=== PATIENT | female | born 1990 | race Caucasian/White ===

== ENCOUNTER 2017-03-01 18:29 | Emergency (ER) | payer BC, MEDICAID ==
[2017-03-01 18:39] VITALS: BP 122/73
--- NOTE | 2017-03-01 19:06 | EDM.PDOC ---
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 The pain is intermittent and lasts about 10-15 minutes at a time. She is approximately 14 weeks . 2 para 1. She had round ligament pain with her first and says this is different. She called the OB floor and they reportedly spoke to Dr. Buitrago who wanted her to come in for an ultrasound tomorrow. She was concerned and decided to come in tonight rather than waiting until tomorrow. She denies vaginal bleeding, spotting, or loss of fluid. No dysuria, frequency or urgency. No fever or chills. She was recently treated for an asymptomatic yeast infection. lower abdominal Pain Score (Numeric/FACES): 3 - Related Data Allergies Allergy/AdvReac Type Severity Reaction Status Date / Time caffeine Allergy Excitabilit Verified 03/01/17 18:39 y CHOCOLATE Allergy Intermediate Hives Uncoded 03/01/17 18:39 Home Meds: Home Meds Doxylamine/Pyridoxine HCl [Diclegis Dr 10-10 mg Tablet] 1 tab PO BEDTIME PRN [History] Multivitamin [One Daily] 1 each PO DAILY 03/01/17 [History] buPROPion HCl [Wellbutrin SR] 150 mg PO DAILY 03/01/17 [History] Past Medical History - Past Health History Medical/Surgical History: Denies Medical/Surgical History Social & Family History - Family History Family Medical History: Noncontributory - Tobacco Use Smoking Status *Q: Never Smoker Second Hand Smoke Exposure: No - Caffeine Use Caffeine Use: Reports: None - Alcohol Use Days Per Week of Alcohol Use: 0 - Recreational Drug Use Recreational Drug Use: No ED ROS GENERAL - Review of Systems Review Of Systems: See Below Constitutional: Reports: No Symptoms. Denies: Fever, Chills GI/Abdominal: Reports: No Symptoms. Denies: Nausea, Vomiting : Reports: Other (pelvic cramping ). Denies: Dysuria, Flank Pain, Frequency, Urgency ED EXAM - Physical Exam Exam: See Below Exam Limited By: No Limitations General Appearance: Alert, WD/WN, No Apparent Distress Respiratory/Chest: No Respiratory Distress, Lungs Clear Cardiovascular: Regular Rate, Rhythm GI/Abdominal: Normal Bowel Sounds, Soft, Non-Tender (Female) Exam: Other (no tenderness with abdominal palpation of the pelvic region. speculum exam deferred as patient has no vaginal bleeding or loss of fluid ) Course - Vital Signs Last Recorded V/S: Last Vital Signs Temp 98.1 F 03/01/17 18:34 Pulse 92 03/01/17 18:34 Resp 18 03/01/17 18:34 BP 122/73 03/01/17 18:34 Pulse Ox 100 03/01/17 18:34 - Orders/Labs/Meds Orders: Active Orders 24 hr Category Date Time Status OB 1st Tri Sgl 1st Gest [US] Stat Exams 03/01/17 19:39 Taken - Re-Assessments/Exams Free Text/Narrative Re-Assessment/Exam: Ultrasound read by [facility], impression: 1. findings consistent with single live intrauterine gestation, with an estimated gestational age of 12 weeks 3 days. Normal cardiac activity. Ovaries are unremarkable. No subchorionic hemorrhage. Visualized placenta appears normal. Patient notified of findings. Educated no return precautions. Instructed to f/u with Dr. Buitrago this week. Departure - Departure Time of Disposition: 21:49 Disposition: Home, Self-Care 01 Condition: Good Clinical Impression: Pelvic cramping - Discharge Information Referrals: Kervin Buitrago MD [Primary Care Provider] - Forms: ED Department Discharge Additional Instructions: Tylenol 650mg every 4-6 hours as needed for pain Follow-up with Dr. Buitrago or Lili Martinez in 2-3 days Return to ER if symptoms worsen or you develop any vaginal bleeding or spotting - My Orders Last 24 Hours: My Active Orders 03/01/17 19:39 OB 1st Tri Sgl 1st Gest [US] Stat - Assessment/Plan Last 24 Hours: My Active Orders 03/01/17 19:39 OB 1st Tri Sgl 1st Gest [US] Stat
--- NOTE | 2017-03-02 14:38 | US ---
Limited obstetrical ultrasound: Multiple real-time images were obtained transabdominally. Comparison: Previous study of 02/18/17. Dates: LMP: LMP given as 11/23/16, MARTHA 08/30/17, gestational age 14 weeks 0 days Current ultrasound: MARTHA 08/31/17, gestational age 13 weeks 6 days Earliest ultrasound (02/18/17): MARTHA 08/30/17, gestational age 14 weeks 0 days Single intrauterine fetus is seen. Amniotic fluid volume is normal. No findings of placenta previa or abruption. Measurements: BPD: 2.39 cm - 14 weeks 1 day Head circumference: 9.53 cm - 14 weeks 3 days Abdominal circumference: 7.24 cm - 13 weeks 6 days Femur length: 1.09 cm - 13 weeks 2 days Estimated weight: 79 g (0 lbs. 3 oz.), estimated weight at the 70th percentile for age by current ultrasound Heart rate: 165 bpm Maternal ovaries are unremarkable Impression: 1. Single intrauterine fetus. Dates as noted above. 2. No complicating process identified on current ultrasound exam. Diagnostic code #1 I agree with preliminary report issued by [facility] ([facility] preliminary report dictated on 03/01/17, 10:14 PM Central Time)
== END 2017-03-01 22:10 | disposition home or self-care (01) ==
LOC: JD.ED 18:29
DX: O99.89 Other specified diseases and conditions complicating pregnancy, childbirth and the puerperium (principal); R10.2 Pelvic and perineal pain; Z91.018 Allergy to other foods; Z3A.14 14 weeks gestation of pregnancy
CPT/HCPCS: 76801; 76801-26; 99282; 99284-25

== ENCOUNTER 2017-08-25 04:58 | Inpatient (IN) | payer BC, MEDICAID ==
--- NOTE | 2017-08-24 11:44 | PCM.LDHP ---
L&D History of Present Illness - General Date of Service: 08/24/17 Admit Problem/Dx: Admission Diagnosis/Problem Admission Diagnosis/Problem Source of Information: Patient History Limitations: Reports: No Limitations - History of Present Illness Introduction:: 27 Y/O MARTHA 08/28/2017 EGA 39w4d on 08/25/2017 DOS. Plan repeat CS 2016. GBS Negative. A positive, antibody screen negative. H/H on 02/11/17 13.5/ 39.1 plt [id number]. Rubella immune, RPR NR, Urine culture mixed quan. HBsAg neg, HIV neg, GC/CT neg. On 06/10/17 H/H 12.0/36.3 Plt [id number]. OBGS 141 and 3hr OGTT 95, 159, 152, 122 instructed to avoid seeets, sugar, fired and fatty foods. HAD MODERATE BLEEDING AFTER FIRST CS. Improves with: Reports: None Worsens with: Reports: None Associated Symptoms: Reports: N - Related Data Allergies/Adverse Reactions: Allergies Allergy/AdvReac Type Severity Reaction Status Date / Time caffeine Allergy Excitabilit Verified 06/27/17 18:27 y CHOCOLATE Allergy Intermediate Hives Uncoded 06/27/17 18:27 Home Medications: Home Meds Doxylamine/Pyridoxine HCl [Diclegis Dr 10-10 mg Tablet] 1 tab PO BEDTIME PRN [History] Multivitamin [One Daily] 1 each PO DAILY 03/01/17 [History] buPROPion HCl [Wellbutrin SR] 150 mg PO DAILY 03/01/17 [History] Past Medical History - Past Health History Medical/Surgical History: Denies Medical/Surgical History : 2 Para: 1 (1001) LMP (Approximate): Social & Family History - Family History Family Medical History: Noncontributory - Tobacco Use Smoking Status *Q: Never Smoker Second Hand Smoke Exposure: No - Caffeine Use Caffeine Use: Reports: None - Alcohol Use Days Per Week of Alcohol Use: 0 - Recreational Drug Use Recreational Drug Use: No H&P Review of Systems - Review of Systems: Review Of Systems: See Below General: Reports: No Symptoms HEENT: Reports: No Symptoms Pulmonary: Reports: No Symptoms Cardiovascular: Reports: No Symptoms Gastrointestinal: Reports: No Symptoms Genitourinary: Reports: No Symptoms Musculoskeletal: Reports: No Symptoms Skin: Reports: No Symptoms Psychiatric: Reports: No Symptoms Neurological: Reports: No Symptoms Hematologic/Lymphatic: Reports: No Symptoms Immunologic: Reports: No Symptoms L&D Exam - Exam Exam: See Below - Vital Signs Weight: 190 lb - OB Specific Fundal Height In cm: 39 Movement: Active Heart Tones: Present Heart Tones per Min: 156 (08/19/2017@preop) Presentation: Vertex - Reyes Score Reyes Score Cervix Position: Posterior Reyes Score Consistency: Soft Reyes Score Effacement: 0-30% Reyes Score Dilation: Closed Reyes Score 's Station: -3 Reyes Score Total: 2 - Exam General: Alert, Oriented HEENT: PERRLA, Conjunctiva Clear, EACs Clear, EOMI, Hearing Intact, Mucosa Moist & Blanche, Nares Patent, Normal Nasal Septum, Posterior Pharynx Clear, TMs Clear Neck: Supple, Trachea Midline Lungs: Clear to Auscultation, Normal Respiratory Effort Cardiovascular: Regular Rate, Regular Rhythm GI/Abdominal Exam: Normal Bowel Sounds, Soft, Non-Tender, No Organomegaly, No Distention, No Abnormal Bruit, No Mass, Pelvis Stable Rectal Exam: Normal Exam, Normal Rectal Tone Genitourinary: Normal external exam, Normal bimanual exam, Normal speculum exam Back Exam: Normal Inspection, Full Range of Motion Extremities: Normal Inspection, Normal Range of Motion, Non-Tender, No Pedal Edema, Normal Capillary Refill Skin: Warm, Dry, Intact Neurological: Cranial Nerves Intact, Reflexes Equal Bilateral Psychiatric: Alert, Normal Affect, Normal Mood - Problem List (1) 39 weeks gestation of SNOMED Code(s): 80804922 ICD Code: Z3A.39 - 39 WEEKS GESTATION OF Status: Acute (2) History of delivery, antepartum SNOMED Code(s): 125057824 ICD Code: O34.219 - MATERNAL CARE FOR UNSP TYPE SCAR FROM PREVIOUS DEL Status: Acute Problem List Initiated/Reviewed/Updated: No Assessment/Plan Comment:: Plan repeat CS
[2017-08-25] MEDS: Lactated Ringers 1,000 ML IV SCH ×2 (05:45→06:32)
[2017-08-25] MEDS ORDERED: Citric Acid/Sodium Citrate Solution 30 ML Cup PO ONE (06:45)
[2017-08-25] MEDS ORDERED: Metoclopramide 10 MG/2 ML SDV IVPUSH ONE (06:45)
[2017-08-25] MEDS ORDERED: Bupivacaine 0.5% 30 ML SDV ONE (06:55)
[2017-08-25] MEDS ORDERED: ceFAZolin 2 GM in Premix Bag 1 BAG IV ONE (07:00)
[2017-08-25] MEDS ORDERED: Ondansetron 4 MG/2 ML SDV ONE (07:14)
[2017-08-25] MEDS ORDERED: Oxytocin 10 Units/1 ML SDV ONE (07:14)
[2017-08-25] MEDS ORDERED: Ketorolac 30 MG/ML SDV ONE (07:14)
--- NOTE | 2017-08-25 07:17 | PCM.PREANE ---
Preanesthetic Assessment - Anesthesia/Transfusion/Family Hx Anesthesia History: Prior Anesthesia Without Reaction Family History of Anesthesia Reaction: No Transfusion History: No Prior Transfusion(s) - Review of Systems General: No Symptoms Pulmonary: No Symptoms Cardiovascular: No Symptoms Gastrointestinal: Other (heartburn with ) Neurological: No Symptoms Other: Reports: None - Physical Assessment NPO Status Date: 08/24/17 NPO Status Time: 23:30 Pulse: 96 O2 Sat by Pulse Oximetry: 98 Respiratory Rate: 18 Blood Pressure: 116/69 Temperature: 37.0 C Vital Signs: Last Vital Signs Temp 37.0 C 08/25/17 05:17 Pulse 96 08/25/17 05:17 Resp 18 08/25/17 05:17 BP 116/69 08/25/17 05:17 Pulse Ox 98 08/25/17 05:17 Height: 1.63 m Weight: 104.553 kg ASA Class: 2 Mental Status: Alert & Oriented x3 Airway Class: Mallampati = 2 Dentition: Reports: Normal Dentition Thyro-Mental Finger Breadths: 3 Mouth Opening Finger Breadths: 3 ROM/Head Extension: Full Lungs: Clear to Auscultation, Normal Respiratory Effort Cardiovascular: Regular Rate, Regular Rhythm - Allergies Allergies/Adverse Reactions: Allergies Allergy/AdvReac Type Severity Reaction Status Date / Time caffeine Allergy Excitabilit Verified 08/25/17 00:54 y CHOCOLATE Allergy Intermediate Hives Uncoded 06/27/17 18:27 - Blood Blood Available: No Product(s) Available: None - Anesthesia Plan Pre-Op Medication Ordered: None - Acknowledgements Anesthesia Type Planned: Spinal Pt an Appropriate Candidate for the Planned Anesthesia: Yes Alternatives and Risks of Anesthesia Discussed w Pt/Guardian: Yes Pt/Guardian Understands and Agrees with Anesthesia Plan: Yes PreAnesthesia Questionnaire - Past Health History Medical/Surgical History: Denies Medical/Surgical History RN RADIOLOGY History: Reports: , Other (See Below) Other OB/BYN History: Csection 2014 Psychiatric History: Reports: Anxiety, Depression - Past Surgical History HEENT Surgical History: Reports: Oral Surgery Other HEENT Surgeries/Procedures: teeth extraction 2001 - SUBSTANCE USE Smoking Status *Q: Never Smoker Second Hand Smoke Exposure: No Days Per Week of Alcohol Use: 0 Recreational Drug Use History: No - HOME MEDS Home Medications: Home Meds Vit W-Ca,Fe,FA(<1 mg) [ Vitamins] 1 tab PO DAILY 08/25/17 [ History] Ranitidine [Zantac] 150 mg PO DAILY PRN 08/25/17 [History] - CURRENT (IN HOUSE) MEDS Current Meds: Current Medications Cefazolin Sodium/Dextrose 2 gm (/ Premix) 50 mls @ 100 mls/hr IV ONETIME ONE Stop: 08/25/17 07:29 Lactated Ringer's (Ringers, Lactated) 1,000 mls @ 125 mls/hr IV ASDIRECTED [facility] Last Admin: 08/25/17 06:32 Dose: 125 mls/hr Oxytocin 20 unit/ Lactated (Ringer's) 1,002 mls @ 999 mls/hr IV ASDIRECTED [facility] Discontinued Medications Bupivacaine HCl (Marcaine 0.5%) Confirm Administered Dose 30 ml .ROUTE .STK-MED ONE Stop: 08/25/17 06:56 Citric Acid/Sodium Citrate (Bicitra Solution) 30 ml PO ONETIME ONE Stop: 08/25/17 06:46 Last Admin: 08/25/17 06:51 Dose: 30 ml Ketorolac Tromethamine (Toradol) Confirm Administered Dose 30 mg .ROUTE .STK- MED ONE Stop: 08/25/17 07:15 Metoclopramide HCl (Reglan) 10 mg IVPUSH ONETIME ONE Stop: 08/25/17 06:46 Last Admin: 08/25/17 06:51 Dose: 10 mg Ondansetron HCl (Zofran) Confirm Administered Dose 4 mg .ROUTE .STK-MED ONE Stop: 08/25/17 07:15 Oxytocin (Pitocin) Confirm Administered Dose 20 unit .ROUTE .STK-MED ONE Stop: 08/25/17 07:15
[2017-08-25] MEDS ORDERED: ePHEDrine/Normal Saline 25 MG/5 ML Syringe ONE (07:59)
[2017-08-25] MEDS ORDERED: Phenylephrine/Normal Saline 100 MCG/ML 10 ML Syringe ONE (07:59)
[2017-08-25] MEDS ORDERED: Midazolam 1 MG/ML 2 ML SDV ONE (08:13)
[2017-08-25] MEDS ORDERED: fentaNYL 100 MCG/2 ML SDV ONE (08:13)
[2017-08-25] MEDS ORDERED: Metoclopramide 10 MG/2 ML SDV IVPUSH PRN (08:35)
[2017-08-25] MEDS ORDERED: ePHEDrine 50 MG/ML SDV IVPUSH PRN ×2 (08:35→09:31)
[2017-08-25] MEDS ORDERED: Meperidine PF 50 MG/ML Syringe IVPUSH PRN (08:35)
[2017-08-25] MEDS ORDERED: fentaNYL 100 MCG/2 ML SDV IVPUSH PRN (08:35)
[2017-08-25] MEDS ORDERED: diphenhydrAMINE 50 MG/ML SDV IVPUSH PRN ×2 (08:35→09:31)
[2017-08-25] MEDS ORDERED: Lactated Ringers 1,000 ML ONE (08:37)
--- NOTE | 2017-08-25 08:37 | PCM.POSTAN ---
POST ANESTHESIA ASSESSMENT - MENTAL STATUS Mental Status: Alert, Oriented - VITAL SIGNS Pulse Rate: 79 SaO2: 96 Resp Rate: 16 Blood Pressure: 110/56 Temperature: 36.7 C - RESPIRATORY Respiratory Status: Respiratory Rate WNL, Airway Patent, O2 Saturation Stable, Supplemental Oxygen - CARDIOVASCULAR CV Status: Pulse Rate WNL, Blood Pressure Stable - GASTROINTESTINAL GI Status: No Symptoms - PAIN Pain Score: 0 - POST OP HYDRATION Hydration Status: Adequate & Stable
--- NOTE | 2017-08-25 08:38 | PCM.OPNOTE ---
- General Post-Op/Procedure Note Date of Surgery/Procedure: 08/25/17 Operative Procedure(s): Low Segment transverse repeat Pre Op Diagnosis: Previous , 39 weeks plus gestation. Post-Op Diagnosis: Same dense adhesions of the omentum to the anterior fundal serosal surface of the uterus Anesthesia Technique: Spinal Primary Surgeon: Kervin Buitrago Secondary Surgeon: Alexys Copeland Anesthesia Provider: Deborah Iyer Reason Firefighter Was Necessary: Retraction, assist in surgery, decrease comorbidity and co-mortality Role of Firefighter: Retraction, assist in surgery, decrease comorbidity and co-mortality Fluid Replacement, Intraop: 2,500 Output, Urine Amount: 75 EBL in mLs: 1,000 Drain/Tube Comments:: Montez Complications: None Condition: Good Free Text/Narrative:: Patient transported to operating room #1 and placed under spinal anesthesia in the supine position with wedge under the right hip and right flank. SCDs in place and functioning prior surgery. Ancef 2 g given intravenously prior surgery. Timeout performed confirming name, date of , procedure as repeat section. Adequate level of anesthesia was confirmed after preparing and draping the patient in sterile fashion Montez catheter was placed to gravity drainage as well. was brought to the operating room. Pfannenstiel incision was made and care was sharp section to into the anterior fascia. No cavity was entered without difficulty. Bladder flap created pushed caudad and a low segment transverse performed. Amnionic fluid clear upon entry into the amnionic cavity. Male liveborn delivered at [address] Gurrola plumber pipe fitting in attendance and cared for the . Weight 8 lbs. 7 oz. 8/9. Cord blood was collected from three-vessel cord placenta removed manually. Endometrial cavity inspected and cervical patency assured. Sponge needle pack asthma sharp count correct times one the uterine incision closed in 2 layers. First layer was 0 Monocryl running locking suture. Second layer horizontal modified Lembert imbricating suture with 0 Monocryl. 2 figure- of-eight sutures placed at the midline of the incision for hemostasis. There were dense adhesions of the omentum to the anterior serosal fundal surface and these were lysed with blunt and sharp section prior to closure of the incision. Both tubes and ovaries were normal clot screen from the gutters and cul-de-sac. Uterus replaced into the abdominal cavity. Reinspection of the operative site showed no bleeding. Sponge needle pack asthma sharp count correct 2. The abdominal cavity was closed with #1 PDS for the anterior fascia. Irrigation carried out and septated tissue. The skin was closed subcuticular stitch of 3-0 Monocryl Sukh needle. Dermabond Preneo applied. Clots were cleaned from the vagina. Patient transported postanesthesia care unit in satisfactory condition no blood transfusions required.
[2017-08-25] MEDS ORDERED: Naloxone 0.4 MG/ML SDV IVPUSH PRN (09:31)
[2017-08-25] MEDS ORDERED: Ondansetron 4 MG/2 ML SDV IV PRN (09:31)
[2017-08-25] MEDS ORDERED: Docusate Sodium 100 MG Cap PO PRN (09:31)
[2017-08-25] MEDS ORDERED: Dextrose 5%-Lactated Ringers 1,000 ML IV SCH (09:31)
[2017-08-25] MEDS ORDERED: Acetaminophen 325 MG Tab PO PRN (09:31)
[2017-08-25] MEDS ORDERED: Sodium Chloride 0.9% 10 ML Syringe FLUSH PRN (09:31)
[2017-08-25] MEDS ORDERED: Lanolin 100% Cream 7 GM Tube TOP PRN (09:31)
[2017-08-25] MEDS: Acetaminophen/oxyCODONE 325-5 MG Tab PO PRN (09:45)
[2017-08-25] MEDS ORDERED: Lactated Ringers 500 ML IV ONE (12:03)
[2017-08-25] MEDS ORDERED: Furosemide 20 MG/2 ML VIAL IVPUSH ONE (12:08)
--- NOTE | 2017-08-25 12:49 | PCM.SN ---
- Free Text/Narrative Note: DOS Afebrile, awake, alert, oriented. No heavy vaginal bleeding. No leg cramping. Urine output last half hour about 100 ml after Lasiz and bolus of IV fluids. About to eat lunch.
[2017-08-25] MEDS: Simethicone 80 MG Tab.Chew PO SCH ×4 (13:30→20:15)
[2017-08-25] MEDS ORDERED: Ranitidine 15 MG/ML Syrup 10 ML UD Cup PO ONE (14:17)
[2017-08-25] MEDS: Ketorolac 30 MG/ML SDV IVPUSH SCH ×2 (14:31→20:16)
--- NOTE | 2017-08-25 15:09 | PCM.CONS ---
<Werner Riddle - Last Filed: 08/25/17 16:21> H&P History of Present Illness - General Date of Service: 08/25/17 Admit Problem/Dx: Admission Diagnosis/Problem Admission Diagnosis/Problem Source of Information: Patient, Old Records, Provider, RN, RN Notes Reviewed History Limitations: Reports: No Limitations - History of Present Illness Initial Comments - Free Text/Narative: Ivy Thompson is a 27 yo female patient of Dr. Buitrago who underwent section today. She is . There were no complications with her surgery. Hospital medicine was consult that today because after surgery the patient began having chest pain and shortness of breath. She rates it at a 4 out of 10. She reports it did go up into her neck and down her left arm. Pain is described as substernal radiating to her left side. She reports mild shortness of breath as well. She has a history of GERD. Dr. Buitrago reportedly gave her Zantac, which she takes normally, with no relief. She does report this pain is different than her normal GERD symptoms. Pain has been slowly improving. She denies any history of cardiac or pulmonary problems. No family history of cardiac or pulmonary problems at young age. She does appear somewhat anxious, however in no acute distress. 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: , Other (See Below) Other OB/BYN History: Csection 2014 Psychiatric History: Reports: Anxiety, Depression - Past Surgical History HEENT Surgical History: Reports: Oral Surgery Other HEENT Surgeries/Procedures: teeth extraction 2001 Social & Family History - Family History Family Medical History: Noncontributory - Tobacco Use Smoking Status *Q: Never Smoker Second Hand Smoke Exposure: No - Caffeine Use Caffeine Use: Reports: None - Alcohol Use Days Per Week of Alcohol Use: 0 - Recreational Drug Use Recreational Drug Use: No H&P Review of Systems - Review of Systems: Review Of Systems: See Below General: Denies: Fever, Chills, Malaise, Weakness, Fatigue, Diaphoresis HEENT: Denies: Ear Pain, Eye Pain, Headaches, Hearing Changes, Post Nasal Drip, Vertigo, Visual Changes Pulmonary: Reports: Shortness of Breath (mild "when talking" ). Denies: Wheezing, Pleuritic Chest Pain, Cough, Sputum Cardiovascular: Reports: Chest Pain (Improving; 11/21 substernal ). Denies: Palpitations, Dyspnea on Exertion, Edema, Syncope, Blood Pressure Problem Gastrointestinal: Reports: No Symptoms. Denies: Abdominal Pain, Constipation, Diarrhea, Nausea, Vomiting Genitourinary: Reports: No Symptoms. Denies: Dysuria, Frequency, Burning, Pain , Urgency Musculoskeletal: Reports: Neck Pain (with inital episode - absent now ), Arm Pain (with inital episode but absent now ). Denies: Shoulder Pain, Back Pain, Hand Pain, Leg Pain, Foot Pain, Joint Pain, Muscle Pain Skin: Reports: No Symptoms Psychiatric: Reports: No Symptoms Neurological: Reports: No Symptoms Hematologic/Lymphatic: Reports: No Symptoms Immunologic: Reports: No Symptoms Exam - Exam Exam: See Below - Vital Signs Vital Signs: Last Vital Signs Temp 97.9 F 08/25/17 09:27 Pulse 94 08/25/17 14:10 Resp 16 08/25/17 15:00 BP 109/69 08/25/17 14:10 Pulse Ox 96 08/25/17 15:00 Weight: 104.553 kg - Exam Quality Assessment: Urinary Catheter, DVT Prophylaxis General: Alert, Oriented, Cooperative. No: Mild Distress HEENT: Conjunctiva Clear, EACs Clear, EOMI, Hearing Intact, Mucosa Moist & [place] , Nares Patent, Normal Nasal Septum, Posterior Pharynx Clear, PERRLA Neck: Supple, Trachea Midline. No: JVD, Thyromegaly Lungs: Clear to Auscultation, Normal Respiratory Effort Cardiovascular: Regular Rate, Regular Rhythm GI/Abdominal Exam: Normal Bowel Sounds, Soft, No Organomegaly, No Distention, No Abnormal Bruit, No Mass, Pelvis Stable, Tender ( section incision) (Female) Exam: Deferred Rectal (Female) Exam: Deferred Back Exam: Normal Inspection, Full Range of Motion. No: CVA Tenderness (L), CVA Tenderness (R) Extremities: Normal Inspection, Normal Range of Motion, Non-Tender, No Pedal Edema, Normal Capillary Refill Peripheral Pulses: 3+: Radial (L), Radial (R), Posterior Tibial (L), Posterior Tibial (R), Dorsalis Pedis (L), Dorsalis Pedis (R) Skin: Warm, Dry, Intact Neurological: Cranial Nerves Intact (Grossly) Neuro Extensive - Mental Status: Alert, Oriented x3, Normal Mood/Affect, Normal Cognition, Memory Intact Neuro Extensive - Motor, Sensory, Reflexes: CN II-XII Intact (Grossly) Psychiatric: Alert, Normal Affect, Normal Mood - Patient Data Lab Results Last 24 hrs: Laboratory Results - last 24 hr 08/25/17 08/25/17 Range/Units 07:05 07:05 WBC 12.67 H (3.98-10.04) K/mm3 RBC 4.23 (3.98-5.22) M/mm3 Hgb 12.2 (11.2-15.7) gm/L Hct 37.2 (34.1-44.9) % MCV 87.9 (79.4-94.8) fl MCH 28.8 (25.6-32.2) pg MCHC 32.8 (32.2-35.5) g/dl RDW Std Deviation 49.9 H (36.4-46.3) fL Plt Count 267 (182-369) K/mm3 MPV 10.0 (9.4-12.3) fl Neut % (Auto) 62.4 (34.0-71.1) % Lymph % (Auto) 25.2 (19.3-51.7) % Page % (Auto) 9.9 (4.7-12.5) % Eos % (Auto) 1.7 (0.7-5.8) Baso % (Auto) 0.2 (0.1-1.2) % Neut # (Auto) 7.92 H (1.56-6.13) K/mm3 Lymph # (Auto) 3.19 (1.18-3.74) K/mm3 Page # (Auto) 1.26 H (0.24-0.36) K/mm3 Eos # (Auto) 0.21 (0.04-0.36) K/mm3 Baso # (Auto) 0.02 (0.01-0.08) K/mm3 Blood Type A POSITIVE Gel Antibody Screen Negative Result Diagrams: 08/25/17 15:15 08/25/17 15:15 Consult PN Assessment/Plan POD#: 0 Procedures: Procedures ASSAY OF FIBRONECTIN (05/26/17) ASSAY OF GONADOTROPIN (FSH) (06/23/16) ASSAY OF GONADOTROPIN (LH) (06/23/16) ASSAY THYROID STIM HORMONE (06/23/16) BLOOD TYPING SEROLOGIC ABO (02/11/17) BLOOD TYPING SEROLOGIC RH(D) (02/11/17) C-REACTIVE PROTEIN (03/07/16) CHORIONIC GONADOTROPIN ASSAY (06/23/16) CHORIONIC GONADOTROPIN TEST (01/05/17) CHYLMD TRACH DNA AMP PROBE (02/11/17) COMPLETE CBC AUTOMATED (06/23/16) COMPLETE CBC W/AUTO DIFF WBC (06/10/17) COMPREHEN METABOLIC PANEL (06/23/16) EMERGENCY DEPT VISIT (03/01/17) EVAL AMNIOTIC FLUID PROTEIN (07/28/17) NON-STRESS TEST (06/27/17) GLUCOSE TEST (06/10/17) GLUCOSE TOLERANCE TEST (GTT) (06/17/17) HEMOGLOBIN (10/11/14) HEPATITIS B SURFACE AG IA (02/11/17) HIV-1/HIV-2 1 RESULT ANTBDY (06/22/14) N.GONORRHOEAE DNA AMP PROB (02/11/17) OB US < 14 WKS SINGLE FETUS (03/01/17) OB US >/= 14 WKS SNGL FETUS (04/17/17) OB US FOLLOW-UP PER FETUS (04/20/17) RBC ANTIBODY SCREEN (02/11/17) ROUTINE VENIPUNCTURE (06/17/17) RUBELLA ANTIBODY (02/11/17) SMEAR WET MOUNT SALINE/INK (08/12/17) STREP B DNA AMP PROBE (05/26/17) SYPHILIS TEST NON-TREP QUAL (02/11/17) TRANSVAGINAL US NON-OB (03/13/15) TRANSVAGINAL US OBSTETRIC (02/18/17) TRICHOMONAS ASSAY W/OPTIC (08/12/17) URINALYSIS AUTO W/O SCOPE (08/19/17) URINALYSIS AUTO W/SCOPE (08/07/17) URINE BACTERIA CULTURE (06/10/14) URINE CULTURE/COLONY COUNT (08/07/17) (1) S/P section SNOMED Code(s): 172780325 Code(s): Z98.891 - HISTORY OF UTERINE SCAR FROM PREVIOUS SURGERY Priority: High Current Visit: Yes (2) Chest pain SNOMED Code(s): 88350997 Code(s): R07.9 - CHEST PAIN, UNSPECIFIED Priority: High Current Visit: Yes QualifierTitle: Chest pain type: unspecified Qualified Code(s): R07.9 - Chest pain, unspecified (3) Shortness of breath SNOMED Code(s): 370372265 Code(s): R06.02 - SHORTNESS OF BREATH Priority: High Current Visit: Yes (4) GERD (gastroesophageal reflux disease) SNOMED Code(s): 110140667 Code(s): K21.9 - GASTRO-ESOPHAGEAL REFLUX DISEASE WITHOUT ESOPHAGITIS Priority: Low Current Visit: Yes QualifierTitle: Esophagitis presence: esophagitis presence not specified Qualified Code(s): K21.9 - Gastro-esophageal reflux disease without esophagitis (5) Hypokalemia SNOMED Code(s): 72895957 Code(s): E87.6 - HYPOKALEMIA Priority: High Current Visit: Yes (6) Hypomagnesemia SNOMED Code(s): 832074082 Code(s): E83.42 - HYPOMAGNESEMIA Priority: High Current Visit: Yes Problem List Initiated/Reviewed/Updated: Yes My Orders Last 24 Hours: My Active Orders 08/25/17 14:45 EKG 12 Lead [EKG Documentation Completion] [RC] STAT 08/25/17 14:46 CKMB [CHEM] Stat D Dimer [D-DIMER QUANTITATIVE] [COAG] Stat TROPONIN I [CHEM] Stat Plan: I/P Acute: S/P section -Preformed earlier today -Dr. Buitrago primary -Management per primary team Chest pain -Substernal and left side of chest radiating to left arm and neck -4/10 at worst -10 now -Hx/o GERD -Does not feel like prior GERD episodes -Does not appear in acute distress -Reportedly improving -No family or personal hx/o chest or pulmonary disease -12-lead EKG - Sinus rhythm at 83. Repeat ordered for AM. -Troponin - negative -CK-MB - negative -BMP -Hypokalemia as below -Otherwise relatively unremarkable -CBC -WBC 14.79 - likely elevated due to surgery and inflammatory response -Hgb 10.9 -Hct 33.7 -Otherwise unremarkable Shortness of breath -Began after surgery -Worse when talking -No acute distress -Not tachypneic -Vital signs stable -Not requiring any oxygen -D-dimmer 3.76 - likely elevated due to recent surgery () and -Will monitor symptoms. Clinically she appears to be doing well, thus decreasing suspicion of PE -Other labs as above Hypokalemia -Potassium 3.4 -Supplementation as ordered -Monitor Hypomagnesemia -Magnesium 1.4 -Supplementation -Monitor Chronic: GERD - Symptoms appear to be GERD related, Will order GI cocktail and monitor Plan: Recheck 12-lead in AM Monitor labs R/O ID, PE, aortic dissection Postoperative care per primary team. Code Status: Full code. Her PCP is Jared Velazquez PA-C, here at [facility] Thank you for allowing us to participate in the management of this patient!! Requesting Provider: Dr. Buitrago Date Consult Requested: 08/25/17 Reason for Consult: Post- section chest pain/SOB Patient History Reviewed: Yes Admission H&P Reviewed: Yes <Lauren Jaimes M - Last Filed: 08/25/17 18:26> H&P History of Present Illness - General Admit Problem/Dx: Admission Diagnosis/Problem Admission Diagnosis/Problem section Exam - Vital Signs Vital Signs: Last Vital Signs Temp 36.6 C 08/25/17 09:27 Pulse 94 08/25/17 14:10 Resp 16 08/25/17 17:00 BP 109/69 08/25/17 14:10 Pulse Ox 98 08/25/17 17:00 - Patient Data Lab Results Last 24 hrs: Laboratory Results - last 24 hr 08/25/17 08/25/17 08/25/17 Range/Units 07:05 07:05 15:15 WBC 12.67 H (3.98-10.04) K/mm3 RBC 4.23 (3.98-5.22) M/mm3 Hgb 12.2 (11.2-15.7) gm/L Hct 37.2 (34.1-44.9) % MCV 87.9 (79.4-94.8) fl MCH 28.8 (25.6-32.2) pg MCHC 32.8 (32.2-35.5) g/dl RDW Std Deviation 49.9 H (36.4-46.3) fL Plt Count 267 (182-369) K/mm3 MPV 10.0 (9.4-12.3) fl Neut % (Auto) 62.4 (34.0-71.1) % Lymph % (Auto) 25.2 (19.3-51.7) % Page % (Auto) 9.9 (4.7-12.5) % Eos % (Auto) 1.7 (0.7-5.8) Baso % (Auto) 0.2 (0.1-1.2) % Neut # (Auto) 7.92 H (1.56-6.13) K/mm3 Lymph # (Auto) 3.19 (1.18-3.74) K/mm3 Page # (Auto) 1.26 H (0.24-0.36) K/mm3 Eos # (Auto) 0.21 (0.04-0.36) K/mm3 Baso # (Auto) 0.02 (0.01-0.08) K/mm3 D-Dimer, Quantitative 3.76 H (0.19-0.59) mg/L Sodium (136-145) mEq/L Potassium (3.5-5.1) mEq/L Chloride (98-107) mEq/L Carbon Dioxide (21-32) mEq/L Anion Gap (5-15) BUN (7-18) mg/dL Creatinine (0.55-1.02) mg/dL Est Cr Clr Drug Dosing mL/min Estimated GFR (MDRD) (>60) mL/min BUN/Creatinine Ratio (14-18) Glucose (74-106) mg/dL Calcium (8.5-10.1) mg/dL Magnesium (1.8-2.4) mg/dl CK-MB (CK-2) (0-3.6) ng/ml Troponin I (0.00-0.056) ng/mL Blood Type A POSITIVE Gel Antibody Screen Negative 08/25/17 08/25/17 08/25/17 Range/Units 15:15 15:15 15:15 WBC 14.79 H (3.98-10.04) K/mm3 RBC 3.81 L (3.98-5.22) M/mm3 Hgb 10.9 L (11.2-15.7) gm/L Hct 33.7 L (34.1-44.9) % MCV 88.5 (79.4-94.8) fl MCH 28.6 (25.6-32.2) pg MCHC 32.3 (32.2-35.5) g/dl RDW Std Deviation 50.3 H (36.4-46.3) fL Plt Count 228 (182-369) K/mm3 MPV 9.8 (9.4-12.3) fl Neut % (Auto) 76.7 H (34.0-71.1) % Lymph % (Auto) 14.5 L (19.3-51.7) % Page % (Auto) 8.0 (4.7-12.5) % Eos % (Auto) 0.3 L (0.7-5.8) Baso % (Auto) 0.1 (0.1-1.2) % Neut # (Auto) 11.34 H (1.56-6.13) K/mm3 Lymph # (Auto) 2.14 (1.18-3.74) K/mm3 Page # (Auto) 1.18 H (0.24-0.36) K/mm3 Eos # (Auto) 0.05 (0.04-0.36) K/mm3 Baso # (Auto) 0.02 (0.01-0.08) K/mm3 D-Dimer, Quantitative (0.19-0.59) mg/L Sodium 139 (136-145) mEq/L Potassium 3.4 L (3.5-5.1) mEq/L Chloride 109 H (98-107) mEq/L Carbon Dioxide 25 (21-32) mEq/L Anion Gap 8.4 (5-15) BUN 6 L (7-18) mg/dL Creatinine 0.4 L (0.55-1.02) mg/dL Est Cr Clr Drug Dosing 180.81 mL/min Estimated GFR (MDRD) > 60 (>60) mL/min BUN/Creatinine Ratio 15.0 (14-18) Glucose 91 (74-106) mg/dL Calcium 8.2 L (8.5-10.1) mg/dL Magnesium 1.4 L (1.8-2.4) mg/dl CK-MB (CK-2) < 0.5 (0-3.6) ng/ml Troponin I < 0.017 (0.00-0.056) ng/mL Blood Type Gel Antibody Screen Result Diagrams: 08/25/17 15:15 08/25/17 15:15 Consult PN Assessment/Plan Procedures: Procedures ASSAY OF FIBRONECTIN (05/26/17) ASSAY OF GONADOTROPIN (FSH) (06/23/16) ASSAY OF GONADOTROPIN (LH) (06/23/16) ASSAY THYROID STIM HORMONE (06/23/16) BLOOD TYPING SEROLOGIC ABO (02/11/17) BLOOD TYPING SEROLOGIC RH(D) (02/11/17) C-REACTIVE PROTEIN (03/07/16) CHORIONIC GONADOTROPIN ASSAY (06/23/16) CHORIONIC GONADOTROPIN TEST (01/05/17) CHYLMD TRACH DNA AMP PROBE (02/11/17) COMPLETE CBC AUTOMATED (06/23/16) COMPLETE CBC W/AUTO DIFF WBC (06/10/17) COMPREHEN METABOLIC PANEL (06/23/16) EMERGENCY DEPT VISIT (03/01/17) EVAL AMNIOTIC FLUID PROTEIN (07/28/17) NON-STRESS TEST (06/27/17) GLUCOSE TEST (06/10/17) GLUCOSE TOLERANCE TEST (GTT) (06/17/17) HEMOGLOBIN (10/11/14) HEPATITIS B SURFACE AG IA (02/11/17) HIV-1/HIV-2 1 RESULT ANTBDY (06/22/14) N.GONORRHOEAE DNA AMP PROB (02/11/17) OB US < 14 WKS SINGLE FETUS (03/01/17) OB US >/= 14 WKS SNGL FETUS (04/17/17) OB US FOLLOW-UP PER FETUS (04/20/17) RBC ANTIBODY SCREEN (02/11/17) ROUTINE VENIPUNCTURE (06/17/17) RUBELLA ANTIBODY (02/11/17) SMEAR WET M[place] SALINE/INK (08/12/17) STREP B DNA AMP PROBE (05/26/17) SYPHILIS TEST NON-TREP QUAL (02/11/17) TRANSVAGINAL US NON-OB (03/13/15) TRANSVAGINAL US OBSTETRIC (02/18/17) TRICHOMONAS ASSAY W/OPTIC (08/12/17) URINALYSIS AUTO W/O SCOPE (08/19/17) URINALYSIS AUTO W/SCOPE (08/07/17) URINE BACTERIA CULTURE (06/10/14) URINE CULTURE/COLONY COUNT (08/07/17) Plan: Doubt coronary dissection as well, TN I ordered. ECG unremarkable. Patient was not able to tolerate GI cocktail.
[2017-08-25] MEDS ORDERED: Alum Hydrox/Mag Hydrox/Simeth 30 ML, Lidocaine 2% 15 ML PO ONE ×2 (16:34)
--- NOTE | 2017-08-25 16:37 | PCM.SN ---
- Free Text/Narrative Note: Had complained of "chest fullness and heaviness" patient was seen in consult by hospitalist. Feeling better now after her Zantac. Ordered additional Zantac 150 twice a day. Chest is clear. Heart exam normal. No heavy vaginal bleeding. Incision normal. No leg cramping. Patient stable
[2017-08-25] MEDS ORDERED: Lactated Ringers 1,000 ML IV SCH (17:00)
[2017-08-25] MEDS ORDERED: Potassium Chloride 20 MEQ Tab.ER PO SCH (17:00)
[2017-08-25] MEDS: Magnesium Sulfate/Water 2 GM in Premix Bag 1 BAG IV SCH ×3 (17:15→23:05)
[2017-08-25] MEDS: Famotidine 20 MG Tab PO SCH (20:16)
[2017-08-26] MEDS: Magnesium Sulfate/Water 2 GM in Premix Bag 1 BAG IV SCH (00:07)
[2017-08-26] MEDS: Acetaminophen/oxyCODONE 325-5 MG Tab PO PRN ×4 (01:52→21:21)
[2017-08-26] MEDS ORDERED: Ketorolac 30 MG/ML SDV ONE (05:11)
[2017-08-26] MEDS: Ketorolac 30 MG/ML SDV IVPUSH SCH (05:17)
[2017-08-26] MEDS: Simethicone 80 MG Tab.Chew PO SCH ×6 (05:30→21:21)
[2017-08-26] MEDS ORDERED: Magnesium Sulfate/Water 2 GM in Premix Bag 1 BAG IV SCH (06:00)
[2017-08-26] MEDS: Potassium Chloride 20 MEQ Tab.ER PO SCH ×2 (06:22→09:44)
--- NOTE | 2017-08-26 07:15 | PCM48HPAN ---
Post Anesthesia Note - EVALUATION WITHIN 48HRS OF ANESTHETIC Vital Signs in Normal Range: Yes Patient Participated in Evaluation: Yes Respiratory Function Stable: Yes Airway Patent: Yes Cardiovascular Function Stable: Yes Hydration Status Stable: Yes Pain Control Satisfactory: Yes Nausea and Vomiting Control Satisfactory: Yes Mental Status Recovered: Yes
--- NOTE | 2017-08-26 08:03 | PCM.SN ---
- Free Text/Narrative Note: postop day #1/ day #1/ Afebrile, chest clear) chest heaviness fullness has resolved) heart sounds normal. Abdomen normal uterus involuting normally. Incision normal no heavy vaginal bleeding no leg cramping. Patient is taking potassium and had magnesium sulfate last night repeat basic metabolic profile has been ordered. CBC reviewed. Probably home tomorrow. Patient looks and feels much better today. Blood pressures are "low" but patient ran "low" during as well.
[2017-08-26] MEDS ORDERED: Ibuprofen 600 MG Tab PO PRN (08:30)
[2017-08-26] MEDS ORDERED: Non-Formulary Medication 1 Each (Ranitidine 150 MG) PO PRN (08:55)
[2017-08-26] MEDS ORDERED: Sodium Chloride 0.9% 100 ML IV SCH (09:15)
[2017-08-26] MEDS ORDERED: Iopamidol 755 Mg/ML 100 ML Bottle IVPUSH ONE (09:15)
[2017-08-26] MEDS ORDERED: Sodium Chloride 0.9% 10 ML Syringe FLUSH PRN (09:15)
[2017-08-26] MEDS: Prenatal Multivitamin with Calcium/Folic Acid/Iron Tab PO SCH (09:40)
--- NOTE | 2017-08-26 10:03 | PCM.CONSN ---
- General Info Date of Service: 08/26/17 Admission Dx/Problem (Free Text): Admission Diagnosis/Problem Admission Diagnosis/Problem section Chest pain and SOB Ivy is seen this morning; reports SOB is resolved, still has "very mild" CP sensations at times. The "chewable stuff" for heartburn is helping. She is not and she feels this may also be contributing to the CP she is having. Yesterday she had CP with workup: negative trop and EKG; d.dimer was significantly elevated at >3. VS were stable on RA. She slept fairly well overnight considering she has a . Functional Status: Reports: Pain Controlled, Tolerating Diet, Ambulating, Urinating, Incentive Spirometry. Denies: New Symptoms - Review of Systems General: Denies: Fever HEENT: Reports: No Symptoms Pulmonary: Reports: No Symptoms. Denies: Shortness of Breath, Cough Cardiovascular: Reports: Chest Pain (very mild), Other (hypotensive this morning by chart review.). Denies: Palpitations, Dyspnea on Exertion, Orthopnea , Edema, Lightheadedness Gastrointestinal: Reports: Abdominal Pain (s/p ; incisional pain). Denies: Diarrhea, Nausea (resolved from yesterday), Vomiting Neurological: Reports: No Symptoms. Denies: Dizziness, Headache Psychiatric: Reports: No Symptoms - Patient Data Vitals - Most Recent: Last Vital Signs Temp 97.9 F 08/26/17 07:33 Pulse 72 08/26/17 07:33 Resp 16 08/26/17 07:33 BP 82/46 L 08/26/17 07:33 Pulse Ox 99 08/26/17 07:33 Weight - Most Recent: 230 lb 8 oz I&O - Last 24 Hours: Intake & Output 08/25/17 08/26/17 08/26/17 22:59 06:59 14:59 Intake Total 970 800 Output Total 1850 1950 Balance -880 -1150 Lab Results Last 24 Hours: Laboratory Results - last 24 hr 08/25/17 08/25/17 08/25/17 Range/Units 15:15 15:15 15:15 WBC (3.98-10.04) K/mm3 RBC (3.98-5.22) M/mm3 Hgb (11.2-15.7) gm/L Hct (34.1-44.9) % MCV (79.4-94.8) fl MCH (25.6-32.2) pg MCHC (32.2-35.5) g/dl RDW Std Deviation (36.4-46.3) fL Plt Count (182-369) K/mm3 MPV (9.4-12.3) fl Neut % (Auto) (34.0-71.1) % Lymph % (Auto) (19.3-51.7) % Valley % (Auto) (4.7-12.5) % Eos % (Auto) (0.7-5.8) Baso % (Auto) (0.1-1.2) % Neut # (Auto) (1.56-6.13) K/mm3 Lymph # (Auto) (1.18-3.74) K/mm3 Valley # (Auto) (0.24-0.36) K/mm3 Eos # (Auto) (0.04-0.36) K/mm3 Baso # (Auto) (0.01-0.08) K/mm3 D-Dimer, Quantitative 3.76 H (0.19-0.59) mg/L Sodium 139 (136-145) mEq/L Potassium 3.4 L (3.5-5.1) mEq/L Chloride 109 H (98-107) mEq/L Carbon Dioxide 25 (21-32) mEq/L Anion Gap 8.4 (5-15) BUN 6 L (7-18) mg/dL Creatinine 0.4 L (0.55-1.02) mg/dL Est Cr Clr Drug Dosing 180.81 mL/min Estimated GFR (MDRD) > 60 (>60) mL/min BUN/Creatinine Ratio 15.0 (14-18) Glucose 91 (74-106) mg/dL Calcium 8.2 L (8.5-10.1) mg/dL Magnesium 1.4 L (1.8-2.4) mg/dl CK-MB (CK-2) < 0.5 (0-3.6) ng/ml Troponin I < 0.017 (0.00-0.056) ng/mL 08/25/17 08/26/17 08/26/17 Range/Units 15:15 06:35 06:35 WBC 14.79 H 10.35 H (3.98-10.04) K/mm3 RBC 3.81 L 3.68 L (3.98-5.22) M/mm3 Hgb 10.9 L 10.5 L (11.2-15.7) gm/L Hct 33.7 L 32.9 L (34.1-44.9) % MCV 88.5 89.4 (79.4-94.8) fl MCH 28.6 28.5 (25.6-32.2) pg MCHC 32.3 31.9 L (32.2-35.5) g/dl RDW Std Deviation 50.3 H 51.9 H (36.4-46.3) fL Plt Count 228 237 (182-369) K/mm3 MPV 9.8 9.7 (9.4-12.3) fl Neut % (Auto) 76.7 H 58.2 (34.0-71.1) % Lymph % (Auto) 14.5 L 29.4 (19.3-51.7) % Valley % (Auto) 8.0 10.2 (4.7-12.5) % Eos % (Auto) 0.3 L 1.7 (0.7-5.8) Baso % (Auto) 0.1 0.2 (0.1-1.2) % Neut # (Auto) 11.34 H 6.02 (1.56-6.13) K/mm3 Lymph # (Auto) 2.14 3.04 (1.18-3.74) K/mm3 Valley # (Auto) 1.18 H 1.06 H (0.24-0.36) K/mm3 Eos # (Auto) 0.05 0.18 (0.04-0.36) K/mm3 Baso # (Auto) 0.02 0.02 (0.01-0.08) K/mm3 D-Dimer, Quantitative (0.19-0.59) mg/L Sodium 138 (136-145) mEq/L Potassium 4.0 (3.5-5.1) mEq/L Chloride 106 (98-107) mEq/L Carbon Dioxide 26 (21-32) mEq/L Anion Gap 10.0 (5-15) BUN 8 (7-18) mg/dL Creatinine 0.5 L (0.55-1.02) mg/dL Est Cr Clr Drug Dosing 144.65 mL/min Estimated GFR (MDRD) > 60 (>60) mL/min BUN/Creatinine Ratio 16.0 (14-18) Glucose 91 (74-106) mg/dL Calcium 8.0 L (8.5-10.1) mg/dL Magnesium (1.8-2.4) mg/dl CK-MB (CK-2) (0-3.6) ng/ml Troponin I (0.00-0.056) ng/mL 08/26/17 Range/Units 09:10 WBC (3.98-10.04) K/mm3 RBC (3.98-5.22) M/mm3 Hgb (11.2-15.7) gm/L Hct (34.1-44.9) % MCV (79.4-94.8) fl MCH (25.6-32.2) pg MCHC (32.2-35.5) g/dl RDW Std Deviation (36.4-46.3) fL Plt Count (182-369) K/mm3 MPV (9.4-12.3) fl Neut % (Auto) (34.0-71.1) % Lymph % (Auto) (19.3-51.7) % Valley % (Auto) (4.7-12.5) % Eos % (Auto) (0.7-5.8) Baso % (Auto) (0.1-1.2) % Neut # (Auto) (1.56-6.13) K/mm3 Lymph # (Auto) (1.18-3.74) K/mm3 Valley # (Auto) (0.24-0.36) K/mm3 Eos # (Auto) (0.04-0.36) K/mm3 Baso # (Auto) (0.01-0.08) K/mm3 D-Dimer, Quantitative (0.19-0.59) mg/L Sodium (136-145) mEq/L Potassium (3.5-5.1) mEq/L Chloride (98-107) mEq/L Carbon Dioxide (21-32) mEq/L Anion Gap (5-15) BUN (7-18) mg/dL Creatinine (0.55-1.02) mg/dL Est Cr Clr Drug Dosing mL/min Estimated GFR (MDRD) (>60) mL/min BUN/Creatinine Ratio (14-18) Glucose (74-106) mg/dL Calcium (8.5-10.1) mg/dL Magnesium (1.8-2.4) mg/dl CK-MB (CK-2) (0-3.6) ng/ml Troponin I < 0.017 (0.00-0.056) ng/mL Med Orders - Current: Current Medications Acetaminophen (Tylenol) 650 mg PO Q4H PRN PRN Reason: mild pain or fever Diphenhydramine HCl (Benadryl) 25 mg IVPUSH Q6H PRN PRN Reason: Itching or Nausea Docusate Sodium (Colace) 100 mg PO Q12H PRN PRN Reason: Constipation Emollient Ointment (Lansinoh Hpa) 0 gm TOP ASDIRECTED PRN PRN Reason: Sore Nipples Ephedrine Sulfate (Ephedrine Sulfate) 5 mg IVPUSH SEECOMMENT PRN PRN Reason: Other Famotidine (Pepcid) 20 mg PO BEDTIME [facility] Last Admin: 08/25/17 20:16 Dose: 20 mg Lactated Ringer's (Ringers, Lactated) 1,000 mls @ 50 mls/hr IV ASDIRECTED [facility] Last Admin: 08/25/17 21:39 Dose: 50 mls/hr Sodium Chloride (Normal Saline) 100 mls @ 80 mls/hr IV ASDIRECTED [facility] Stop: 08/26/17 11:00 Last Admin: 08/26/17 09:29 Dose: 80 mls/hr Ibuprofen (Motrin) 600 mg PO Q6H PRN PRN Reason: mild pain or fever Naloxone HCl (Narcan) 0.1 mg IVPUSH SEECOMMENT PRN PRN Reason: Respiratory Depression Ondansetron HCl (Zofran) 4 mg IV Q8H PRN PRN Reason: Nausea/Vomiting Last Admin: 08/25/17 11:06 Dose: 4 mg Oxycodone/Acetaminophen (Percocet 325-5 Mg) 2 tab PO Q4H PRN PRN Reason: Pain (moderate 4-6) Last Admin: 08/26/17 01:52 Dose: 2 tab Prenat Multivit/[place]/Iron/Folic Ac ( Plus Iron) 1 each PO DAILY JOLIE Last Admin: 08/26/17 09:40 Dose: 1 each Simethicone (Simethicone) 80 mg PO PCBED JOLIE Last Admin: 08/26/17 09:40 Dose: 80 mg Sodium Chloride (Saline Flush) 10 ml FLUSH ASDIRECTED PRN PRN Reason: Keep Vein Open Sodium Chloride (Saline Flush) 10 ml FLUSH ONETIME PRN PRN Reason: IV FLUSH Stop: 08/26/17 11:00 Last Admin: 08/26/17 09:30 Dose: 10 ml Discontinued Medications Bupivacaine HCl (Marcaine 0.5%) Confirm Administered Dose 30 ml .ROUTE .STK-MED ONE Stop: 08/25/17 06:56 Last Admin: 08/25/17 07:53 Dose: 20 ml Citric Acid/Sodium Citrate (Bicitra Solution) 30 ml PO ONETIME ONE Stop: 08/25/17 06:46 Last Admin: 08/25/17 06:51 Dose: 30 ml Al Hydroxide/Mg Hydroxide 30 (ml/ Lidocaine HCl 15 ml) 0 ml PO ONETIME ONE Stop: 08/25/17 16:35 Last Admin: 08/25/17 17:12 Dose: 45 ml Diphenhydramine HCl (Benadryl) 25 mg IVPUSH Q6H PRN PRN Reason: itching Stop: 08/25/17 10:30 Ephedrine Sulfate (Ephedrine In Ns) Confirm Administered Dose 25 mg .ROUTE .STK- MED ONE Stop: 08/25/17 08:00 Ephedrine Sulfate (Ephedrine Sulfate) 5 mg IVPUSH ASDIRECTED PRN PRN Reason: Hypotension Stop: 08/25/17 10:30 Fentanyl (Sublimaze) Confirm Administered Dose 100 mcg .ROUTE .STK-MED ONE Stop: 08/25/17 08:14 Fentanyl (Sublimaze) 50 mcg IVPUSH Q5M PRN PRN Reason: pain Stop: 08/25/17 10:30 Furosemide (Lasix) 20 mg IVPUSH NOW ONE Stop: 08/25/17 12:09 Last Admin: 08/25/17 12:24 Dose: 20 mg Cefazolin Sodium/Dextrose 2 gm (/ Premix) 50 mls @ 100 mls/hr IV ONETIME ONE Stop: 08/25/17 07:29 Lactated Ringer's (Ringers, Lactated) 1,000 mls @ 125 mls/hr IV ASDIRECTED [facility] Last Admin: 08/25/17 06:32 Dose: 125 mls/hr Oxytocin 20 unit/ Lactated (Ringer's) 1,002 mls @ 999 mls/hr IV ASDIRECTED [facility] Lactated Ringer's (Ringers, Lactated) Confirm Administered Dose 1,000 mls @ as directed .ROUTE .STK-MED ONE Stop: 08/25/17 08:38 Dextrose/Lactated Ringer's (Dextrose 5%-Lactated Ringers) 1,000 mls @ 125 mls/ hr IV ASDIRECTED [facility] Stop: 08/25/17 17:30 Last Admin: 08/25/17 10:31 Dose: 125 mls/hr Lactated Ringer's (Ringers, Lactated) 500 mls @ 500 mls/hr IV .BOLUS ONE Stop: 08/25/17 13:02 Last Admin: 08/25/17 12:24 Dose: 500 mls/hr Magnesium Sulfate 2 gm/ Premix 50 mls @ 25 mls/hr IV Q1H [facility] Stop: 08/25/17 18:44 Last Admin: 08/26/17 00:07 Dose: Not Given Magnesium Sulfate 2 gm/ Premix 50 mls @ 25 mls/hr IV Q1H [facility] Stop: 08/26/17 07:59 Magnesium Sulfate 2 gm/ Premix 50 mls @ 25 mls/hr IV Q1H [facility] Stop: 08/25/17 23:29 Last Admin: 08/25/17 23:05 Dose: 25 mls/hr Iopamidol (Isovue-370 (76%)) 100 ml IVPUSH ONETIME ONE Stop: 08/26/17 09:16 Last Admin: 08/26/17 09:29 Dose: 60 ml Ketorolac Tromethamine (Toradol) Confirm Administered Dose 30 mg .ROUTE .STK- MED ONE Stop: 08/25/17 07:15 Ketorolac Tromethamine (Toradol) 30 mg IVPUSH Q6H [facility] Stop: 08/26/17 02:31 Last Admin: 08/26/17 05:17 Dose: 30 mg Ketorolac Tromethamine (Toradol) Confirm Administered Dose 30 mg .ROUTE .STK- MED ONE Stop: 08/26/17 05:12 Last Admin: 08/26/17 06:15 Dose: Not Given Meperidine HCl (Demerol) 12.5 mg IVPUSH ONETIME PRN PRN Reason: Shivering Stop: 08/25/17 10:30 Last Admin: 08/25/17 08:51 Dose: 12.5 mg Metoclopramide HCl (Reglan) 10 mg IVPUSH ONETIME ONE Stop: 08/25/17 06:46 Last Admin: 08/25/17 06:51 Dose: 10 mg Metoclopramide HCl (Reglan) 10 mg IVPUSH ONETIME PRN PRN Reason: Nausea/Vomiting Stop: 08/25/17 10:30 Midazolam HCl (Versed 1 Mg/Ml) Confirm Administered Dose 2 mg .ROUTE .STK-MED ONE Stop: 08/25/17 08:14 Non-Formulary Medication (Ranitidine) 150 mg PO DAILY PRN PRN Reason: Heartburn Ondansetron HCl (Zofran) Confirm Administered Dose 4 mg .ROUTE .STK-MED ONE Stop: 08/25/17 07:15 Oxytocin (Pitocin) Confirm Administered Dose 20 unit .ROUTE .STK-MED ONE Stop: 08/25/17 07:15 Phenylephrine HCl (Phenylephrine In Ns 100 Mcg/Ml) Confirm Administered Dose 1 mg .ROUTE .STK-MED ONE Stop: 08/25/17 08:00 Potassium Chloride (Klor-Con M20) 40 meq PO Q4H [facility] Stop: 08/25/17 21:01 Last Admin: 08/25/17 17:14 Dose: Not Given Potassium Chloride (Klor-Con M20) 40 meq PO Q4H [facility] Stop: 08/26/17 10:01 Last Admin: 08/26/17 09:44 Dose: 40 meq Ranitidine HCl (Zantac) 75 mg PO ONETIME ONE Stop: 08/25/17 14:18 Last Admin: 08/25/17 14:26 Dose: 5 ml - Exam Quality Assessment: DVT Prophylaxis General: Alert, Oriented, Cooperative, No Acute Distress HEENT: Pupils Equal, EOMI, Mucous Membr. Moist/[place] Neck: Supple, No JVD Lungs: Clear to Auscultation, Normal Respiratory Effort Cardiovascular: Regular Rate, Regular Rhythm. No: Murmurs GI/Abdominal Exam: Normal Bowel Sounds, Soft (Female) Exam: Deferred Extremities: Normal Inspection, No Pedal Edema, Normal Capillary Refill Peripheral Pulses: 2+: Radial (L), Radial (R), Dorsalis Pedis (L), Dorsalis Pedis (R) Neurological: No New Focal Deficit Psy/Mental Status: Alert, Normal Affect, Normal Mood Consult PN Assessment/Plan POD#: 1 Procedures: Procedures ASSAY OF FIBRONECTIN (05/26/17) ASSAY OF GONADOTROPIN (FSH) (06/23/16) ASSAY OF GONADOTROPIN (LH) (06/23/16) ASSAY THYROID STIM HORMONE (06/23/16) BLOOD TYPING SEROLOGIC ABO (02/11/17) BLOOD TYPING SEROLOGIC RH(D) (02/11/17) C-REACTIVE PROTEIN (03/07/16) CHORIONIC GONADOTROPIN ASSAY (06/23/16) CHORIONIC GONADOTROPIN TEST (01/05/17) CHYLMD TRACH DNA AMP PROBE (02/11/17) COMPLETE CBC AUTOMATED (06/23/16) COMPLETE CBC W/AUTO DIFF WBC (06/10/17) COMPREHEN METABOLIC PANEL (06/23/16) EMERGENCY DEPT VISIT (03/01/17) EVAL AMNIOTIC FLUID PROTEIN (07/28/17) NON-STRESS TEST (06/27/17) GLUCOSE TEST (06/10/17) GLUCOSE TOLERANCE TEST (GTT) (06/17/17) HEMOGLOBIN (10/11/14) HEPATITIS B SURFACE AG IA (02/11/17) HIV-1/HIV-2 1 RESULT ANTBDY (06/22/14) N.GONORRHOEAE DNA AMP PROB (02/11/17) OB US < 14 WKS SINGLE FETUS (03/01/17) OB US >/= 14 WKS SNGL FETUS (04/17/17) OB US FOLLOW-UP PER FETUS (04/20/17) RBC ANTIBODY SCREEN (02/11/17) ROUTINE VENIPUNCTURE (06/17/17) RUBELLA ANTIBODY (02/11/17) SMEAR WET [place] SALINE/INK (08/12/17) STREP B DNA AMP PROBE (05/26/17) SYPHILIS TEST NON-TREP QUAL (02/11/17) TRANSVAGINAL US NON-OB (03/13/15) TRANSVAGINAL US OBSTETRIC (02/18/17) TRICHOMONAS ASSAY W/OPTIC (08/12/17) URINALYSIS AUTO W/O SCOPE (08/19/17) URINALYSIS AUTO W/SCOPE (08/07/17) URINE BACTERIA CULTURE (06/10/14) URINE CULTURE/COLONY COUNT (08/07/17) (1) S/P section SNOMED Code(s): 294666836 Code(s): Z98.891 - HISTORY OF UTERINE SCAR FROM PREVIOUS SURGERY Priority: High Current Visit: Yes (2) Chest pain SNOMED Code(s): 00329188 Code(s): R07.9 - CHEST PAIN, UNSPECIFIED Priority: High Current Visit: Yes Qualifiers: Chest pain type: unspecified Qualified Code(s): R07.9 - Chest pain, unspecified (3) Hypokalemia SNOMED Code(s): 20088609 Code(s): E87.6 - HYPOKALEMIA Priority: High Current Visit: Yes (4) Hypomagnesemia SNOMED Code(s): 011384549 Code(s): E83.42 - HYPOMAGNESEMIA Priority: High Current Visit: Yes (5) Shortness of breath SNOMED Code(s): 075741393 Code(s): R06.02 - SHORTNESS OF BREATH Priority: High Current Visit: Yes Problem List Initiated/Reviewed/Updated: Yes My Orders Last 24 Hours: My Active Orders 08/26/17 08:54 Ang Chest [CT] Routine 08/26/17 09:00 Vit with Ca/FA/Iron [ Plus Iron] 1 each PO DAILY 08/26/17 09:58 MAGNESIUM [CHEM] Routine Plan: I/P Acute: S/P section -POD #1; postoperative care and OB care per Dr. Buitrago/Primary service Chest pain--yesterday; essentially resolved today -Substernal and left side of chest radiating to left arm and neck -Hx/o GERD; Does not feel like prior GERD episodes; however states "chewable stuff for heartburn" is helping -No family or personal hx/o chest or pulmonary disease -12-lead EKG done yesterday - Sinus rhythm at 83. Repeat ordered for AM. -Troponin - negative, repeat this morning also negative -CK-MB - negative -BMP -Hypokalemia as below --resolved -Otherwise relatively unremarkable -CBC -WBC 14.79 - likely elevated due to surgery and inflammatory response -Hgb 10.9 -Hct 33.7 -Otherwise unremarkable Shortness of breath -Began after surgery; Worse when talking; Not tachypnic; Vital signs stable on RA -D-dimmer 3.76 - likely elevated due to recent surgery () and ; CTA ordered this morning to R/O PE: high risk with and surgery, symptomatic with CP, SOB and hypotensive this morning. -CTA is negative for PE or other lung findings. Hypokalemia -- Resolved this morning -Supplementation yesterday -Monitor Hypomagnesemia--resolved this morning -Supplementation yesterday -Monitor Chronic: GERD - zantac at home, pepcid here. Rec'd zantac yesterday without resolution of CP; "chewable" is helping today. Plan: Recheck trop and 12-lead this am--negative. Monitor labs Ambulate and watch O2 sats with ambulation R/O MD, PE, coronary dissection s/p delivery Postoperative and OB care per primary team. Patient with negative cardiac and pulmonary workup. Hospitalist service will sign off at this time, please do not hesitate to contact us again for further assistance. Thank you for allowing us to assist with this patient.
--- NOTE | 2017-08-26 10:42 | CT ---
CT chest Technique: Multiple axial sections through the chest were obtained. Intravenous contrast was utilized. Findings: Pulmonary arteries are moderately well-opacified. No filling defects are seen to indicate pulmonary embolism. Mediastinum and hilar regions are unremarkable. Minimal soft tissue density within the superior mediastinum is seen compatible with residual thymic tissue. Small hiatal hernia appears to be present. Visualized upper abdominal structures are within normal limits. Lungs are clear. No pleural effusions are seen. Bone window settings were reviewed which appear within normal limits for the patient's age. Impression: 1. No findings of pulmonary embolism. Nothing acute is seen on CT study of the chest. Diagnostic code #1
[2017-08-26] MEDS: Famotidine 20 MG Tab PO SCH (21:21)
[2017-08-27] MEDS: Acetaminophen/oxyCODONE 325-5 MG Tab PO PRN ×3 (01:44→10:40)
[2017-08-27 05:02] VITALS: BP 110/65
--- NOTE | 2017-08-27 07:55 | PCM.DCSUM1 ---
Discharge Summary - Hospital Course Free Text/Narrative:: [facility] Post-Op/Procedure Note Patient Name: MEHUL POLO Date of : 88 Patient Status: Inpatient Attending Provider: Kervin Buitrago Date: 08/25/17 08:32 Initialization Date: 08/25/17 08:32 - General Post-Op/Procedure Note Date of Surgery/Procedure: 08/25/17 Operative Procedure(s): Low Segment transverse repeat Pre Op Diagnosis: Previous , 39 weeks plus gestation. Post-Op Diagnosis: Same dense adhesions of the omentum to the anterior fundal serosal surface of the uterus Anesthesia Technique: Spinal Primary Surgeon: Kervin Buitrago Secondary Surgeon: Alexys Copeland Anesthesia Provider: Deborah Iyer Reason Engineering Consultant Was Necessary: Retraction, assist in surgery, decrease comorbidity and co-mortality Role of Engineering Consultant: Retraction, assist in surgery, decrease comorbidity and co-mortality Fluid Replacement, Intraop: 2,500 Output, Urine Amount: 75 EBL in mLs: 1,000 Drain/Tube Comments:: Montez Complications: None Condition: Good Free Text/Narrative:: Patient transported to operating room #1 and placed under spinal anesthesia in the supine position with wedge under the right hip and right flank. SCDs in place and functioning prior surgery. Ancef 2 g given intravenously prior surgery. Timeout performed confirming name, date of , procedure as repeat section. Adequate level of anesthesia was confirmed after preparing and draping the patient in sterile fashion Montez catheter was placed to gravity drainage as well. was brought to the operating room. Pfannenstiel incision was made and care was sharp section to into the anterior fascia. No cavity was entered without difficulty. Bladder flap created pushed caudad and a low segment transverse performed. Amnionic fluid clear upon entry into the amnionic cavity. Male liveborn delivered at [address] Gurrola appeals rn in attendance and cared for the . Weight 8 lbs. 7 oz. 8/9. Cord blood was collected from three-vessel cord placenta removed manually. Endometrial cavity inspected and cervical patency assured. Sponge needle pack asthma sharp count correct times one the uterine incision closed in 2 layers. First layer was 0 Monocryl running locking suture. Second layer horizontal modified Lembert imbricating suture with 0 Monocryl. 2 figure- of-eight sutures placed at the midline of the incision for hemostasis. There were dense adhesions of the omentum to the anterior serosal fundal surface and these were lysed with blunt and sharp section prior to closure of the incision. Both tubes and ovaries were normal clot screen from the gutters and cul-de-sac. Uterus replaced into the abdominal cavity. Reinspection of the operative site showed no bleeding. Sponge needle pack asthma sharp count correct 2. The abdominal cavity was closed with #1 PDS for the anterior fascia. Irrigation carried out and septated tissue. The skin was closed subcuticular stitch of 3-0 Monocryl Sukh needle. Dermabond Preneo applied. Clots were cleaned from the vagina. Patient transported postanesthesia care unit in satisfactory condition no blood transfusions required. HPI Initial Comments: [facility] Post-Op/Procedure Note Patient Name: MEHUL POLO Date of : 88 Patient Status: Inpatient Attending Provider: Kervin Buitrago Date: 08/25/17 08:32 Initialization Date: 08/25/17 08:32 - General Post-Op/Procedure Note Date of Surgery/Procedure: 08/25/17 Operative Procedure(s): Low Segment transverse repeat Pre Op Diagnosis: Previous , 39 weeks plus gestation. Post-Op Diagnosis: Same dense adhesions of the omentum to the anterior fundal serosal surface of the uterus Anesthesia Technique: Spinal Primary Surgeon: Kervin Buitrago Secondary Surgeon: Alexys Copeland Anesthesia Provider: Deborah Iyer Reason Engineering Consultant Was Necessary: Retraction, assist in surgery, decrease comorbidity and co-mortality Role of Engineering Consultant: Retraction, assist in surgery, decrease comorbidity and co-mortality Fluid Replacement, Intraop: 2,500 Output, Urine Amount: 75 EBL in mLs: 1,000 Drain/Tube Comments:: Montez Complications: None Condition: Good Free Text/Narrative:: Patient transported to operating room #1 and placed under spinal anesthesia in the supine position with wedge under the right hip and right flank. SCDs in place and functioning prior surgery. Ancef 2 g given intravenously prior surgery. Timeout performed confirming name, date of , procedure as repeat section. Adequate level of anesthesia was confirmed after preparing and draping the patient in sterile fashion Montez catheter was placed to gravity drainage as well. was brought to the operating room. Pfannenstiel incision was made and care was sharp section to into the anterior fascia. No cavity was entered without difficulty. Bladder flap created pushed caudad and a low segment transverse performed. Amnionic fluid clear upon entry into the amnionic cavity. Male liveborn delivered at [address] Gurrola appeals rn in attendance and cared for the . Weight 8 lbs. 7 oz. 8/9. Cord blood was collected from three-vessel cord placenta removed manually. Endometrial cavity inspected and cervical patency assured. Sponge needle pack asthma sharp count correct times one the uterine incision closed in 2 layers. First layer was 0 Monocryl running locking suture. Second layer horizontal modified Lembert imbricating suture with 0 Monocryl. 2 figure- of-eight sutures placed at the midline of the incision for hemostasis. There were dense adhesions of the omentum to the anterior serosal fundal surface and these were lysed with blunt and sharp section prior to closure of the incision. Both tubes and ovaries were normal clot screen from the gutters and cul-de-sac. Uterus replaced into the abdominal cavity. Reinspection of the operative site showed no bleeding. Sponge needle pack asthma sharp count correct 2. The abdominal cavity was closed with #1 PDS for the anterior fascia. Irrigation carried out and septated tissue. The skin was closed subcuticular stitch of 3-0 Monocryl Sukh needle. Dermabond Preneo applied. Clots were cleaned from the vagina. Patient transported postanesthesia care unit in satisfactory condition no blood transfusions required. Brief History: [facility] . Post-Op/Procedure Note. [facility] [id number]. Date of : Patient Status: Inpatient. Attending Provider: Kervin Buitragoount Number: [id number]. Date: 08/25/17 08:32Initialization Date: 08/25/17 08:32. - General Post-Op/Procedure Note. Date of Surgery/Procedure: 08/25/17. Operative Procedure(s): Low Segment transverse repeat. Pre Op Diagnosis: Previous , 39 weeks plus gestation. Post-Op Diagnosis: Same dense adhesions of the omentum to the anterior fundal serosal surface of the uterus. Anesthesia Technique: Spinal. Primary Surgeon: Kervin Buitargo. Secondary Surgeon: Alexys Copeland. Anesthesia Provider: Deborah Iyer. Reason Engineering Consultant Was Necessary: Retraction, assist in surgery, decrease comorbidity and co-mortality. Role of Engineering Consultant: Retraction, assist in surgery , decrease comorbidity and co-mortality. Fluid Replacement, Intraop: 2,500. Output, Urine Amount: 75. EBL in mLs: 1,000. Drain/Tube Comments:: Montez. Complications: None. Condition: Good. Free Text/Narrative:: Patient transported to operating room #1 and placed under spinal anesthesia in the supine position with wedge under the right hip and right flank. SCDs in place and functioning prior surgery. Ancef 2 g given intravenously prior surgery. Timeout performed confirming name, date of , procedure as repeat section. Adequate level of anesthesia was confirmed after preparing and draping the patient in sterile fashion Montez catheter was placed to gravity drainage as well. was brought to the operating room. Pfannenstiel incision was made and care was sharp section to into the anterior fascia. No cavity was entered without difficulty. Bladder flap created pushed caudad and a low segment transverse performed. Amnionic fluid clear upon entry into the amnionic cavity. Male liveborn delivered at 0757 hrs. on Thursday08/25/17. Dr. Gurrola appeals rn in attendance and cared for the . Weight 8 lbs. 7 oz. 8/9. Cord blood was collected from three-vessel cord placenta removed manually. Endometrial cavity inspected and cervical patency assured. Sponge needle pack asthma sharp count correct times one the uterine incision closed in 2 layers. First layer was 0 Monocryl running locking suture. Second layer horizontal modified Lembert imbricating suture with 0 Monocryl. 2 figure-of- eight sutures placed at the midline of the incision for hemostasis. There were dense adhesions of the omentum to the anterior serosal fundal surface and these were lysed with blunt and sharp section prior to closure of the incision. Both tubes and ovaries were normal clot screen from the gutters and cul-de-sac. Uterus replaced into the abdominal cavity. Reinspection of the operative site showed no bleeding. Sponge needle pack asthma sharp count correct 2. The abdominal cavity was closed with #1 PDS for the anterior fascia. Irrigation carried out and septated tissue. The skin was closed subcuticular stitch of 3-0 Monocryl Sukh needle. Dermabond Preneo applied. Clots were cleaned from the vagina. Patient transported postanesthesia care unit in satisfactory condition no blood transfusions required. - Discharge Data Discharge Date: 08/27/17 Discharge Disposition: Home, Self-Care 01 Condition: Good - Discharge Diagnosis/Problem(s) (1) 39 weeks gestation of SNOMED Code(s): 45056067 ICD Code: Z3A.39 - 39 WEEKS GESTATION OF Status: Acute Current Visit: Yes (2) History of delivery, antepartum SNOMED Code(s): 422040616 ICD Code: O34.219 - MATERNAL CARE FOR UNSP TYPE SCAR FROM PREVIOUS DEL Status: Acute Current Visit: Yes - Patient Summary/Data Operative Procedure(s) Performed: Low Segment transverse repeat Consults: Consultations 08/25/17 14:37 Consult to Physician [CONS] Routine Hospital Course: Evaluated for chest pain. Seen by PA and Hospitalist and not significant problem. - Patient Instructions Diet: Regular Diet as Tolerated Driving: Do Not Drive (x2 weeks) Showering/Bathing: May Shower, No Tub Bathing/Swimming (x6 weeks) Wound/Incision Care: Keep Operative Site/Wound Site Clean and Dry Notify Provider of: Fever, Increased Pain, Swelling and Redness, Drainage, Nausea and/or Vomiting - Discharge Plan Prescriptions/Med Rec: Acetaminophen/oxyCODONE [Percocet 325-5 MG] 1 tab PO Q6H PRN #25 tablet PRN Reason: Pain (Moderate 4-6) Citalopram [Celexa] 20 mg PO DAILY #30 tablet Ibuprofen [IJD: Ibuprofen] 600 mg PO Q6H PRN #50 tablet PRN Reason: mild pain or fever Home Medications: Home Meds Vit W-Ca,Fe,FA(<1 mg) [ Vitamins] 1 tab PO DAILY 08/25/17 [ History] Ranitidine [Zantac] 150 mg PO DAILY PRN 08/25/17 [History] Acetaminophen [Tylenol] 650 mg PO Q4H PRN tablet 08/27/17 [Rx] Acetaminophen/oxyCODONE [Percocet 325-5 MG] 1 tab PO Q6H PRN #25 tablet [Rx] Citalopram [Celexa] 20 mg PO DAILY #30 tablet 08/27/17 [Rx] Docusate Sodium [Colace] 100 mg PO Q12H PRN cap 08/27/17 [Rx] Ibuprofen [IJD: Ibuprofen] 600 mg PO Q6H PRN #50 tablet 08/27/17 [Rx] Lanolin [Lansinoh HPA] 1 applic TOP ASDIRECTED PRN tube 08/27/17 [Rx] Simethicone 80 mg PO PCBED tab.chew 08/27/17 [Rx] Referrals: Kervin Buitrago MD [Physician] - - Discharge Summary/Plan Comment DC Time >30 min.: No - Patient Data Vitals - Most Recent: Last Vital Signs Temp 98.2 F 08/26/17 19:46 Pulse 72 08/27/17 04:06 Resp 16 08/26/17 19:46 BP 110/65 08/27/17 04:06 Pulse Ox 98 08/27/17 04:06 Weight - Most Recent: 230 lb 8 oz I&O - Last 24 hours: Intake & Output 08/26/17 08/27/17 08/27/17 22:59 06:59 14:59 Intake Total 480 Balance 480 Lab Results - Last 24 hrs: Laboratory Results - last 24 hr 08/26/17 08/26/17 08/26/17 Range/Units 06:35 09:10 09:10 Sodium 138 (136-145) mEq/L Potassium 4.0 (3.5-5.1) mEq/L Chloride 106 (98-107) mEq/L Carbon Dioxide 26 (21-32) mEq/L Anion Gap 10.0 (5-15) BUN 8 (7-18) mg/dL Creatinine 0.5 L (0.55-1.02) mg/dL Est Cr Clr Drug Dosing 144.65 mL/min Estimated GFR (MDRD) > 60 (>60) mL/min BUN/Creatinine Ratio 16.0 (14-18) Glucose 91 (74-106) mg/dL Calcium 8.0 L (8.5-10.1) mg/dL Magnesium 1.9 (1.8-2.4) mg/dl Troponin I < 0.017 (0.00-0.056) ng/mL Med Orders - Current: Current Medications Acetaminophen (Tylenol) 650 mg PO Q4H PRN PRN Reason: mild pain or fever Diphenhydramine HCl (Benadryl) 25 mg IVPUSH Q6H PRN PRN Reason: Itching or Nausea Docusate Sodium (Colace) 100 mg PO Q12H PRN PRN Reason: Constipation Last Admin: 08/26/17 16:01 Dose: 100 mg Emollient Ointment (Lansinoh Hpa) 0 gm TOP ASDIRECTED PRN PRN Reason: Sore Nipples Ephedrine Sulfate (Ephedrine Sulfate) 5 mg IVPUSH SEECOMMENT PRN PRN Reason: Other Famotidine (Pepcid) 20 mg PO BEDTIME [facility] Last Admin: 08/26/17 21:21 Dose: 20 mg Lactated Ringer's (Ringers, Lactated) 1,000 mls @ 50 mls/hr IV ASDIRECTED [facility] Last Admin: 08/25/17 21:39 Dose: 50 mls/hr Ibuprofen (Motrin) 600 mg PO Q6H PRN PRN Reason: mild pain or fever Last Admin: 08/26/17 14:07 Dose: 600 mg Naloxone HCl (Narcan) 0.1 mg IVPUSH SEECOMMENT PRN PRN Reason: Respiratory Depression Ondansetron HCl (Zofran) 4 mg IV Q8H PRN PRN Reason: Nausea/Vomiting Last Admin: 08/25/17 11:06 Dose: 4 mg Oxycodone/Acetaminophen (Percocet 325-5 Mg) 2 tab PO Q4H PRN PRN Reason: Pain (moderate 4-6) Last Admin: 08/27/17 06:41 Dose: 2 tab Prenat Multivit/[place]/Iron/Folic Ac ( Plus Iron) 1 each PO DAILY [facility] Last Admin: 08/26/17 09:40 Dose: 1 each Simethicone (Simethicone) 80 mg PO PCBED [facility] Last Admin: 08/26/17 21:21 Dose: 80 mg Sodium Chloride (Saline Flush) 10 ml FLUSH ASDIRECTED PRN PRN Reason: Keep Vein Open Discontinued Medications Bupivacaine HCl (Marcaine 0.5%) Confirm Administered Dose 30 ml .ROUTE .STK-MED ONE Stop: 08/25/17 06:56 Last Admin: 08/25/17 07:53 Dose: 20 ml Citric Acid/Sodium Citrate (Bicitra Solution) 30 ml PO ONETIME ONE Stop: 08/25/17 06:46 Last Admin: 08/25/17 06:51 Dose: 30 ml Al Hydroxide/Mg Hydroxide 30 (ml/ Lidocaine HCl 15 ml) 0 ml PO ONETIME ONE Stop: 08/25/17 16:35 Last Admin: 08/25/17 17:12 Dose: 45 ml Diphenhydramine HCl (Benadryl) 25 mg IVPUSH Q6H PRN PRN Reason: itching Stop: 08/25/17 10:30 Ephedrine Sulfate (Ephedrine In Ns) Confirm Administered Dose 25 mg .ROUTE .STK- MED ONE Stop: 08/25/17 08:00 Ephedrine Sulfate (Ephedrine Sulfate) 5 mg IVPUSH ASDIRECTED PRN PRN Reason: Hypotension Stop: 08/25/17 10:30 Fentanyl (Sublimaze) Confirm Administered Dose 100 mcg .ROUTE .STK-MED ONE Stop: 08/25/17 08:14 Fentanyl (Sublimaze) 50 mcg IVPUSH Q5M PRN PRN Reason: pain Stop: 08/25/17 10:30 Furosemide (Lasix) 20 mg IVPUSH NOW ONE Stop: 08/25/17 12:09 Last Admin: 08/25/17 12:24 Dose: 20 mg Cefazolin Sodium/Dextrose 2 gm (/ Premix) 50 mls @ 100 mls/hr IV ONETIME ONE Stop: 08/25/17 07:29 Lactated Ringer's (Ringers, Lactated) 1,000 mls @ 125 mls/hr IV ASDIRECTED [facility] Last Admin: 08/25/17 06:32 Dose: 125 mls/hr Oxytocin 20 unit/ Lactated (Ringer's) 1,002 mls @ 999 mls/hr IV ASDIRECTED [facility] Lactated Ringer's (Ringers, Lactated) Confirm Administered Dose 1,000 mls @ as directed .ROUTE .STK-MED ONE Stop: 08/25/17 08:38 Dextrose/Lactated Ringer's (Dextrose 5%-Lactated Ringers) 1,000 mls @ 125 mls/ hr IV ASDIRECTED [facility] Stop: 08/25/17 17:30 Last Admin: 08/25/17 10:31 Dose: 125 mls/hr Lactated Ringer's (Ringers, Lactated) 500 mls @ 500 mls/hr IV .BOLUS ONE Stop: 08/25/17 13:02 Last Admin: 08/25/17 12:24 Dose: 500 mls/hr Magnesium Sulfate 2 gm/ Premix 50 mls @ 25 mls/hr IV Q1H [facility] Stop: 08/25/17 18:44 Last Admin: 08/26/17 00:07 Dose: Not Given Magnesium Sulfate 2 gm/ Premix 50 mls @ 25 mls/hr IV Q1H [facility] Stop: 08/26/17 07:59 Magnesium Sulfate 2 gm/ Premix 50 mls @ 25 mls/hr IV Q1H [facility] Stop: 08/25/17 23:29 Last Admin: 08/25/17 23:05 Dose: 25 mls/hr Sodium Chloride (Normal Saline) 100 mls @ 80 mls/hr IV ASDIRECTED [facility] Stop: 08/26/17 11:00 Last Admin: 08/26/17 09:29 Dose: 80 mls/hr Iopamidol (Isovue-370 (76%)) 100 ml IVPUSH ONETIME ONE Stop: 08/26/17 09:16 Last Admin: 08/26/17 09:29 Dose: 60 ml Ketorolac Tromethamine (Toradol) Confirm Administered Dose 30 mg .ROUTE .STK- MED ONE Stop: 08/25/17 07:15 Ketorolac Tromethamine (Toradol) 30 mg IVPUSH Q6H [facility] Stop: 08/26/17 02:31 Last Admin: 08/26/17 05:17 Dose: 30 mg Ketorolac Tromethamine (Toradol) Confirm Administered Dose 30 mg .ROUTE .STK- MED ONE Stop: 08/26/17 05:12 Last Admin: 08/26/17 06:15 Dose: Not Given Meperidine HCl (Demerol) 12.5 mg IVPUSH ONETIME PRN PRN Reason: Shivering Stop: 08/25/17 10:30 Last Admin: 08/25/17 08:51 Dose: 12.5 mg Metoclopramide HCl (Reglan) 10 mg IVPUSH ONETIME ONE Stop: 08/25/17 06:46 Last Admin: 08/25/17 06:51 Dose: 10 mg Metoclopramide HCl (Reglan) 10 mg IVPUSH ONETIME PRN PRN Reason: Nausea/Vomiting Stop: 08/25/17 10:30 Midazolam HCl (Versed 1 Mg/Ml) Confirm Administered Dose 2 mg .ROUTE .STK-MED ONE Stop: 08/25/17 08:14 Non-Formulary Medication (Ranitidine) 150 mg PO DAILY PRN PRN Reason: Heartburn Ondansetron HCl (Zofran) Confirm Administered Dose 4 mg .ROUTE .STK-MED ONE Stop: 08/25/17 07:15 Oxytocin (Pitocin) Confirm Administered Dose 20 unit .ROUTE .STK-MED ONE Stop: 08/25/17 07:15 Phenylephrine HCl (Phenylephrine In Ns 100 Mcg/Ml) Confirm Administered Dose 1 mg .ROUTE .STK-MED ONE Stop: 08/25/17 08:00 Potassium Chloride (Klor-Con M20) 40 meq PO Q4H JOLIE Stop: 08/25/17 21:01 Last Admin: 08/25/17 17:14 Dose: Not Given Potassium Chloride (Klor-Con M20) 40 meq PO Q4H JOLIE Stop: 08/26/17 10:01 Last Admin: 08/26/17 09:44 Dose: 40 meq Ranitidine HCl (Zantac) 75 mg PO ONETIME ONE Stop: 08/25/17 14:18 Last Admin: 08/25/17 14:26 Dose: 5 ml Sodium Chloride (Saline Flush) 10 ml FLUSH ONETIME PRN PRN Reason: IV FLUSH Stop: 08/26/17 11:00 Last Admin: 08/26/17 09:30 Dose: 10 ml *Q Meaningful Use (DIS) - VTE *Q VTE Criteria *Q: - Stroke *Q Stroke Criteria *Q: - AMI *Q AMI Criteria *Q:
[2017-08-27] MEDS: Simethicone 80 MG Tab.Chew PO SCH (10:26)
[2017-08-27] MEDS: Prenatal Multivitamin with Calcium/Folic Acid/Iron Tab PO SCH (10:26)
== END 2017-08-27 11:10 | disposition home or self-care (01) | DRG 540 ==
LOC: UNDOADMIN 04:58 → JD.OB 04:58
PROVIDERS: ADMIT Obstetrics & Gynecology; ATTEND Obstetrics & Gynecology
PROC: 10D00Z1 Extraction of Products of Conception, Low, Open Approach (ICD-10-PCS; principal; 2017-08-25)
DX: O34.211 Maternal care for low transverse scar from previous cesarean delivery (principal); N85.8 Other specified noninflammatory disorders of uterus; Z3A.40 40 weeks gestation of pregnancy; Z37.0 Single live birth; O99.89 Other specified diseases and conditions complicating pregnancy, childbirth and the puerperium; R07.9 Chest pain, unspecified; R06.02 Shortness of breath; K21.9 Gastro-esophageal reflux disease without esophagitis; E87.6 Hypokalemia; E83.42 Hypomagnesemia; Z91.02 Food additives allergy status
CPT/HCPCS: 01961; 36415; 71275; 71275-26; 80048; 82553; 83735; 84484; 85025; 85379; 86850; 86900; 86901; 93005; A9270-GY; J1885; J2175; J2250; J2405; J2590; J2765; J3010; J3475; J7030; J7042; J7050; J7120; Q9967

== ENCOUNTER 2020-12-01 15:19 | Emergency (ER) | payer BC, MEDICAID ==
--- NOTE | 2020-12-01 15:54 | EDM.PDOC ---
ED HPI GENERAL MEDICAL PROBLEM - General Chief Complaint: General Stated Complaint: COLD SX AND SORE THROAT X 1 MONTH Time Seen by Provider: 12/01/20 15:30 Source of Information: Reports: Patient History Limitations: Reports: No Limitations - History of Present Illness INITIAL COMMENTS - FREE TEXT/NARRATIVE: The patient presents with a headache, sore throat and a slight cough. This all started about a month ago. She has not been able to stop it with over the counter medications. She has no fever or chills. She has no chest pain or shortness of breath. She does not smoke. She had COVID 19 back in May but she fully recovered in 6 months. Onset: Gradual Duration: Week(s): (4) Location: Reports: Head Quality: Reports: Ache Severity: Moderate Improves with: Reports: None Worsens with: Reports: None Associated Symptoms: Reports: Cough, Headaches. Denies: Chest Pain, Fever/Chills, Nausea/Vomiting, Shortness of Breath Headache Pain Score (Numeric/FACES): 3 - Related Data Allergies Allergy/AdvReac Type Severity Reaction Status Date / Time chocolate flavor Allergy Hives Verified 12/01/20 15:30 caffeine AdvReac Excitabilit Verified 12/01/20 15:30 y Home Meds: Home Meds Amoxicillin/Clavulanate K [Augmentin 875-125 MG] 1 tab PO BID #14 tablet 0 12/01/20 [Rx] Loratadine/Pseudoephedrine [Claritin-D 24 Hour Tablet] 1 each PO DAILY #20 tab.er.24h 12/01/20 [Rx] Multivitamin [Flintstones with Extra C] 1 tab PO DAILY 12/01/20 [History] Omeprazole 20 mg PO BID 12/01/20 [History] Past Medical History - Past Health History Medical/Surgical History: Denies Medical/Surgical History FISHER DIVING History: Reports: , Other (See Below) Other FISHER DIVING History: Csection 2014 Psychiatric History: Reports: Anxiety, Depression - Infectious Disease History Infectious Disease History: Reports: Novel Coronavirus - Past Surgical History HEENT Surgical History: Reports: Oral Surgery Other HEENT Surgeries/Procedures: teeth extraction 2001 Social & Family History - Family History Family Medical History: No Pertinent Family History - Tobacco Use Tobacco Use Status *Q: Never Tobacco User Second Hand Smoke Exposure: No - Caffeine Use Caffeine Use: Reports: Coffee - Recreational Drug Use Recreational Drug Use: No ED ROS GENERAL - Review of Systems Review Of Systems: See Below Constitutional: Reports: No Symptoms HEENT: Reports: Throat Pain Respiratory: Reports: No Symptoms Cardiovascular: Reports: No Symptoms Endocrine: Reports: No Symptoms GI/Abdominal: Reports: No Symptoms : Reports: No Symptoms Musculoskeletal: Reports: No Symptoms ED EXAM, GENERAL - Physical Exam Exam: See Below Exam Limited By: No Limitations General Appearance: Alert, No Apparent Distress Ears: Normal External Exam Nose: Normal Inspection Throat/Mouth: Normal Inspection, Normal Oropharynx Head: Atraumatic, Normocephalic Neck: Normal Inspection, Supple, Non-Tender Respiratory/Chest: No Respiratory Distress, Lungs Clear, Normal Breath Sounds Cardiovascular: Regular Rate, Rhythm, No Edema, No Murmur GI/Abdominal: Soft, Non-Tender, No Organomegaly, No Mass Back Exam: Normal Inspection Extremities: Normal Inspection Neurological: Alert, Oriented, No Motor/Sensory Deficits Course - Vital Signs Last Recorded V/S: Last Vital Signs Temp 98.1 F 12/01/20 15:32 Pulse 77 12/01/20 15:32 Resp 16 12/01/20 15:32 BP 143/89 H 12/01/20 15:32 Pulse Ox 98 12/01/20 15:32 - Re-Assessments/Exams Free Text/Narrative Re-Assessment/Exam: 12/01/20 15:50 I feel this is a sinus infection. I will start her on some augmentin BID for 7 days and claritin D 24 hours and have her take some flonase. Departure - Departure Time of Disposition: 15:55 Disposition: Home, Self-Care 01 Condition: Good Clinical Impression: Sinus infection Qualifiers: Sinusitis location: unspecified location Chronicity: acute Recurrence: non- recurrent Qualified Code(s): J01.90 - Acute sinusitis, unspecified - Discharge Information *PRESCRIPTION DRUG MONITORING PROGRAM REVIEWED*: No *COPY OF PRESCRIPTION DRUG MONITORING REPORT IN PATIENT LAURA: No Prescriptions: Amoxicillin/Clavulanate K [Augmentin 875-125 MG] 1 tab PO BID #14 tablet Loratadine/Pseudoephedrine [Claritin-D 24 Hour Tablet] 1 each PO DAILY #20 tab.er.24h Referrals: Jared Velazquez PA-C [Primary Care Provider] - 1 Week Additional Instructions: Take the augmentin 2 times per day for 7 days. Take the claritin D 24 hours daily. Flonase is a nasal spray that you can buy over the counter. Use that per label instructions. Follow up with Jared Velazquez within a week. Please return if you are worse. Sepsis Event Note (ED) - Evaluation Sepsis Screening Result: No Definite Risk - Focused Exam Vital Signs: Vital Signs Temp Pulse Resp BP Pulse Ox 12/01/20 15:32 98.1 F 77 16 143/89 H 98
[2020-12-01 16:06] VITALS: BP 108/64; PULSE 98
== END 2020-12-01 16:05 | disposition home or self-care (01) ==
LOC: JD.ED 15:19
DX: J01.90 Acute sinusitis, unspecified (principal); Z86.16 Personal history of COVID-19; Z91.018 Allergy to other foods
CPT/HCPCS: 99283

== ENCOUNTER 2021-02-18 19:18 | Emergency (ER) | payer OTHER, SELFPAY ==
[2021-02-18 19:29] VITALS: BP 133/77; PULSE 78
--- NOTE | 2021-02-18 20:05 | EDM.PDOCBH ---
ED HPI GENERAL MEDICAL PROBLEM - General Chief Complaint: Behavioral/Psych Stated Complaint: DEPRESSION Time Seen by Provider: 02/18/21 19:27 Source of Information: Reports: Patient History Limitations: Reports: No Limitations - History of Present Illness INITIAL COMMENTS - FREE TEXT/NARRATIVE: The patient presents with depression. She was on depression meds and was doing good and came off them in July. She was doing good until the past month. She has been crying more and not wanting to do house hold chores or take care of her kids. She is not suicidal or homicidal. She was recently diagnosed with PCOS and hypothyroidism. She said she can be fine and the next minute she is crying. She is wondering if she can get started on something. She has tried to get into a counselor but they are booked up at the places she tried. She has no fever, chills, cough, congestion runny nose, chest pain, shortness of breath, abdominal pain, nausea or vomiting. Onset: Gradual Duration: Week(s): (4) Severity: Moderate Improves with: Reports: None Worsens with: Reports: None Associated Symptoms: Reports: No Other Symptoms - Related Data Allergies Allergy/AdvReac Type Severity Reaction Status Date / Time No Known Allergies Allergy Verified 02/18/21 19:29 Home Meds: Home Meds Omeprazole 20 mg PO BID PRN 12/01/20 [History] FLUoxetine [PROzac] 10 mg PO DAILY #30 tab 02/18/21 [Rx] Levothyroxine 25 mcg PO ACBREAKFAST 02/18/21 [History] Non-Formulary Medication [NF Drug] 1 tab PO DAILY 02/18/21 [History] metFORMIN HCl [Glucophage XR] 750 mg PO DAILY 02/18/21 [History] Past Medical History - Past Health History Medical/Surgical History: Denies Medical/Surgical History 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, 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 Psychiatric History: Reports: Anxiety, Depression Endocrine/Metabolic History: Reports: Hypothyroidism, Obesity/BMI 30+ - Infectious Disease History Infectious Disease History: Reports: Novel Coronavirus - Past Surgical History HEENT Surgical History: Reports: Oral Surgery Other HEENT Surgeries/Procedures: teeth extraction 2001 Female Surgical History: Reports: Section Social & Family History - Family History Family Medical History: No Pertinent Family History - Tobacco Use Tobacco Use Status *Q: Never Tobacco User - Caffeine Use Caffeine Use: Reports: None - Recreational Drug Use Recreational Drug Use: No ED ROS GENERAL - Review of Systems Review Of Systems: See Below Constitutional: Reports: No Symptoms HEENT: Reports: No Symptoms Respiratory: Reports: No Symptoms Cardiovascular: Reports: No Symptoms Endocrine: Reports: No Symptoms GI/Abdominal: Reports: No Symptoms : Reports: No Symptoms Musculoskeletal: Reports: No Symptoms Skin: Reports: No Symptoms Neurological: Reports: No Symptoms Psychiatric: Reports: Depression ED EXAM, BEHAVIORAL HEALTH - Physical Exam Exam: See Below Exam Limited By: No Limitations General Appearance: Alert, No Apparent Distress Ears: Normal External Exam Nose: Normal Inspection Head: Atraumatic, Normocephalic Neck: Normal Inspection Respiratory/Chest: No Respiratory Distress, Lungs Clear, Normal Breath Sounds Cardiovascular: Regular Rate, Rhythm, No Edema, No Murmur GI/Abdominal: Soft, Non-Tender, No Organomegaly, No Mass Back Exam: Normal Inspection Extremities: Normal Inspection COURSE, BEHAVIORAL HEALTH COMP - Course Vital Signs: Last Vital Signs Temp 96.6 F L 02/18/21 19:25 Pulse 78 02/18/21 19:25 Resp 16 02/18/21 19:25 BP 133/77 02/18/21 19:25 Pulse Ox 96 02/18/21 19:25 Re-Assessment/Re-Exam: I will get her on some prozac to start with and follow up with Jared Velazquez. Departure - Departure Time of Disposition: 20:10 Disposition: Home, Self-Care 01 Condition: Good Clinical Impression: Depressive disorder - Discharge Information *PRESCRIPTION DRUG MONITORING PROGRAM REVIEWED*: Not Applicable *COPY OF PRESCRIPTION DRUG MONITORING REPORT IN PATIENT LAURA: Not Applicable Prescriptions: FLUoxetine [PROzac] 10 mg PO DAILY #30 tab Referrals: Jared Velazquez PA-C [Primary Care Provider] - 1 Week Additional Instructions: Take the prozac daily. Follow up with Jared Velazquez. Try to get into the counselor. The combination of the medication and counseling works well. Please return if you are worse. Sepsis Event Note (ED) - Evaluation Sepsis Screening Result: No Definite Risk - Focused Exam Vital Signs: Vital Signs Temp Pulse Resp BP Pulse Ox 02/18/21 19:25 96.6 F L 78 16 133/77 96
== END 2021-02-18 20:20 | disposition home or self-care (01) ==
LOC: JD.ED 19:18
DX: F32.9 Major depressive disorder, single episode, unspecified (principal); K21.9 Gastro-esophageal reflux disease without esophagitis; E66.9 Obesity, unspecified; Z79.899 Other long term (current) drug therapy; Z68.30 Body mass index [BMI] 30.0-30.9, adult
CPT/HCPCS: 99283

== ENCOUNTER 2021-05-04 02:21 | Emergency (ER) | payer OTHER ==
[2021-05-04 02:40] VITALS: BP 130/77; PULSE 110
[2021-05-04] MEDS ORDERED: Prochlorperazine 10 MG in Sodium Chloride 0.9% 50 ML IV ONE (03:07)
--- NOTE | 2021-05-04 03:13 | EDM.PDOC ---
ED HPI GENERAL MEDICAL PROBLEM - General Chief Complaint: Abdominal Pain Stated Complaint: CHEST PAIN/BACK PAIN/VOMITING Time Seen by Provider: 05/04/21 02:47 - History of Present Illness INITIAL COMMENTS - FREE TEXT/NARRATIVE: Patient arrived to ED by private vehicle She is accompanied by her father Onset of symptoms was about 0030 this morning Endorses sudden onset of pain in epigastric area Associated radiation of pain through to mid back Associated nausea with 3-4 episodes of subsequent vomiting Pain severity was 7/10 at worst Pain severity improved slightly after vomiting, currently 5-6/10 Denies ongoing nausea Denies fever, diarrhea, dysuria Took 2 tablets of extra-strength Tylenol about 0100, without noticeable improvement Had occurrence of similar pain in severity about 2 weeks ago Symptoms lasted for a few hours then resolved Denies other prior history of similar symptoms Epigastric Pain Score (Numeric/FACES): 7 - Related Data Allergies Allergy/AdvReac Type Severity Reaction Status Date / Time No Known Allergies Allergy Verified 05/04/21 02:40 Home Meds: Home Meds Omeprazole 20 mg PO BID PRN 12/01/20 [History] Levothyroxine 25 mcg PO ACBREAKFAST 02/18/21 [History] Non-Formulary Medication [NF Drug] 1 tab PO DAILY 02/18/21 [History] metFORMIN HCl [Glucophage XR] 750 mg PO DAILY 02/18/21 [History] Past Medical History - Past Health History Medical/Surgical History: Denies Medical/Surgical History 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: Polycystic Ovaries, 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 COORDINATOR 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: 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 2014 Psychiatric History: Reports: Anxiety, Depression Endocrine/Metabolic History: Reports: Hypothyroidism, Obesity/BMI 30+ - Infectious Disease History Infectious Disease History: Reports: Novel Coronavirus - Past Surgical History HEENT Surgical History: Reports: Oral Surgery Other HEENT Surgeries/Procedures: teeth extraction 2002 Female Surgical History: Reports: Section Social & Family History - Family History Family Medical History: No Pertinent Family History - Tobacco Use Tobacco Use Status *Q: Never Tobacco User - Caffeine Use Caffeine Use: Reports: None - Recreational Drug Use Recreational Drug Use: No ED ROS GENERAL - Review of Systems Review Of Systems: See Below Free Text/Narrative/Comment: Constitutional - no fever Eyes - no eye pain; no visual disturbance ENT - no rhinorrhea; no congestion; no epistaxis Cardiovascular - no chest pain Respiratory - no shortness of breath; no cough Gastrointestinal - abdominal pain; nausea; vomiting; no diarrhea Genitourinary - no dysuria Musculoskeletal - no neck pain; back pain; no extremity injury Neurological - no headache; no speech disturbance; no weakness ED EXAM, GENERAL - Physical Exam Exam: See Below Free Text/Narrative:: Constitutional - awake; alert; no acute distress Head - no facial swelling or weakness Eyes - extra ocular motion intact; conjunctiva normal ENT - no nasal deformity; no epistaxis; normal phonation; mucus membranes moist Neck - no swelling Respiratory - normal respiratory effort; no crackles or wheezing; no stridor Cardiovascular - regular rhythm; normal rate; S1; S2; grade 1/6 systolic murmur GI/Abdomen - normal bowel sounds; soft; mild tenderness epigastrium and right upper quadrant; no rebound; no guarding; no mass; no CVA tenderness Musculoskeletal - grossly normal strength and motion; no swelling or deformity Skin - warm; dry Neurologic - normal speech; no weakness; gait intact Psychiatric - normal mood and affect; memory and attention normal Course - Vital Signs Text/Narrative:: . Considered etiologies included: Abdominal pain, nausea, vomiting, gastritis, gastroenteritis, GERD, peptic ulcer disease, biliary colic, pancreatitis Symptoms and examination were discussed Investigations were initiated Empiric treatment was provided with IV prochlorperazine She reported improvement in nausea, no significant change in pain Additional treatment was provided with ketorolac Results were discussed, and were unremarkable Pain severity was significantly improved at re-evaluation, essentially resolved Considerations for ED imaging were discussed US evaluation of gallbladder was deferred to primary care follow-up Patient was felt to be stable for outpatient follow-up Return precautions were provided Last Recorded V/S: Last Vital Signs Temp 36.4 C 05/04/21 02:36 Pulse 110 H 05/04/21 02:36 Resp 16 05/04/21 02:36 BP 130/77 05/04/21 02:36 Pulse Ox 97 05/04/21 02:36 - Orders/Labs/Meds Labs: Laboratory Tests 05/04/21 05/04/21 Range/Units 03:03 03:03 WBC 11.85 H (3.98-10.04) K/mm3 RBC 4.76 (3.98-5.22) M/mm3 Hgb 10.8 L (11.2-15.7) gm/dl Hct 34.9 (34.1-44.9) % MCV 73.3 L (79.4-94.8) fl MCH 22.7 L (25.6-32.2) pg MCHC 30.9 L (32.2-35.5) g/dl RDW Std Deviation 48.0 H (36.4-46.3) fL Plt Count 469 H (182-369) K/mm3 MPV 9.6 (9.4-12.3) fl Neut % (Auto) 64.9 (34.0-71.1) % Lymph % (Auto) 25.7 (19.3-51.7) % Pierce % (Auto) 6.9 (4.7-12.5) % Eos % (Auto) 2.1 (0.7-5.8) Baso % (Auto) 0.3 (0.1-1.2) % Neut # (Auto) 7.68 H (1.56-6.13) K/mm3 Lymph # (Auto) 3.05 (1.18-3.74) K/mm3 Pierce # (Auto) 0.82 H (0.24-0.36) K/mm3 Eos # (Auto) 0.25 (0.04-0.36) K/mm3 Baso # (Auto) 0.04 (0.01-0.08) K/mm3 Manual Slide Review Abnormal smear Sodium 143 (136-145) mEq/L Potassium 3.9 (3.5-5.1) mEq/L Chloride 107 (98-107) mEq/L Carbon Dioxide 25 (21-32) mEq/L Anion Gap 14.9 (5-15) BUN 9 (7-18) mg/dL Creatinine 0.8 (0.55-1.02) mg/dL Est Cr Clr Drug Dosing 87.99 mL/min Estimated GFR (MDRD) > 60 (>60) mL/min BUN/Creatinine Ratio 11.3 L (14-18) Glucose 98 (70-99) mg/dL Calcium 8.1 L (8.5-10.1) mg/dL Total Bilirubin 0.3 (0.2-1.0) mg/dL AST 21 (15-37) U/L ALT 33 (14-59) U/L Alkaline Phosphatase 52 (46-116) U/L Total Protein 6.9 (6.4-8.2) g/dl Albumin 2.8 L (3.4-5.0) g/dl Globulin 4.1 gm/dL Albumin/Globulin Ratio 0.7 L (1-2) Lipase 181 (73-393) U/L Meds: Medications Discontinued Medications Generic Name Dose Route Start Last Admin Trade Name Teresa PRN Reason Stop Dose Admin Prochlorperazine Edisylate 10 52 mls @ 150 mls/hr 05/04/21 03:07 05/04/21 03:12 mg/ Sodium Chloride IV 05/04/21 03:27 150 mls/hr ONETIME ONE Administration Ketorolac Tromethamine 15 mg 05/04/21 03:35 05/04/21 03:41 Ketorolac 15 Mg/Ml Sdv IVPUSH 05/04/21 03:36 15 mg ONETIME ONE Administration Departure - Departure Time of Disposition: 04:28 Disposition: Home, Self-Care 01 Clinical Impression: Abdominal pain - Discharge Information *PRESCRIPTION DRUG MONITORING PROGRAM REVIEWED*: Not Applicable *COPY OF PRESCRIPTION DRUG MONITORING REPORT IN PATIENT LAURA: Not Applicable Instructions: Abdominal Pain, Adult Referrals: Jared Velazquez PA-C [Primary Care Provider] - Forms: ED Department Discharge Additional Instructions: Return if condition worsens May resume general activity and light diet as tolerated Continue usual medications May use IBUPROFEN 400-600 mg every 6 hours as needed for pain/inflammation Follow-up with primary care provider is recommended in 3 to 5 days Discuss further gallbladder evaluation and/or referral for surgery consultation with provider
[2021-05-04] MEDS ORDERED: Ketorolac 15 MG/ML SDV IVPUSH ONE (03:35)
== END 2021-05-04 04:39 | disposition home or self-care (01) ==
LOC: JD.ED 02:21
DX: R10.13 Epigastric pain (principal); E03.9 Hypothyroidism, unspecified; E66.9 Obesity, unspecified; Z68.36 Body mass index [BMI] 36.0-36.9, adult; Z79.899 Other long term (current) drug therapy; Z79.84 Long term (current) use of oral hypoglycemic drugs
CPT/HCPCS: 36415; 80053; 83690; 85025; 96365; 96375; 99284; J0780; J1885; 99283

== ENCOUNTER 2021-06-11 06:42 | Inpatient (IN) | payer OTHER, SELFPAY ==
[~2021-06-11 06:42] MED LIST: Lactated Ringers 1,000 ML IV SCH; Lidocaine 1%/Sod Bicarbonate in NS 8.4% 1 ML Syringe IDERM PRN; Sodium Chloride 0.9% 10 ML Syringe FLUSH PRN
[2021-06-11] MEDS ORDERED: fentaNYL 250 MCG/5 ML SDV ONE (07:06)
[2021-06-11] MEDS ORDERED: Rocuronium 50 MG/5 ML Vial ONE (07:06)
[2021-06-11] MEDS ORDERED: Ondansetron 4 MG/2 ML SDV ONE (07:06)
[2021-06-11] MEDS ORDERED: Ketorolac 30 MG/ML SDV ONE (07:06)
[2021-06-11] MEDS ORDERED: ceFAZolin 1 GM Vial ONE (07:06)
[2021-06-11] MEDS ORDERED: Propofol 200 MG/20 ML SDV ONE (07:06)
[2021-06-11] MEDS ORDERED: Dexamethasone 4 MG/ML 5 ML MDV ONE (07:06)
[2021-06-11] MEDS ORDERED: Lactated Ringers 1,000 ML ONE (07:06)
[2021-06-11] MEDS ORDERED: Midazolam 1 MG/ML 2 ML SDV ONE (07:06)
--- NOTE | 2021-06-11 07:27 | PCM.PREANE ---
Preanesthetic Assessment - Anesthesia/Transfusion/Family Hx Anesthesia History: Prior Anesthesia Without Reaction Family History of Anesthesia Reaction: No Transfusion History: No Prior Transfusion(s) - Review of Systems General: Other (obesity, iron deficiency) Pulmonary: No Symptoms, Other (denies asthma) Cardiovascular: No Symptoms Gastrointestinal: Other (GERD) Other: Reports: Diabetes (BS 100 at 0715), Thyroid Problems (hypothyroid, on meds), Depression, Anxiety - Physical Assessment NPO Status Date: 06/10/21 NPO Status Time: 23:45 Weight: 94 kg ASA Class: 2 Mental Status: Alert & Oriented x3 Airway Class: Mallampati = 2 Dentition: Reports: Normal Dentition, Edentulous (front 2 upper teeth) Thyro-Mental Finger Breadths: 3 Mouth Opening Finger Breadths: 3 ROM/Head Extension: Full Lungs: Clear to Auscultation, Normal Respiratory Effort Cardiovascular: Regular Rate, Regular Rhythm - Allergies Allergies/Adverse Reactions: Allergies Allergy/AdvReac Type Severity Reaction Status Date / Time No Known Allergies Allergy Verified 06/10/21 12:12 - Blood Blood Available: No Product(s) Available: None - Acknowledgements Anesthesia Type Planned: General Anesthesia Pt an Appropriate Candidate for the Planned Anesthesia: Yes Alternatives and Risks of Anesthesia Discussed w Pt/Guardian: Yes Pt/Guardian Understands and Agrees with Anesthesia Plan: Yes PreAnesthesia Questionnaire - Past Health History Medical/Surgical History: Denies Medical/Surgical History HEENT History: Reports: Otitis Media, Sinusitis Other HEENT History: Patient has partials. 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: Polycystic Ovaries, Other OB/BYN History: Csection 2014 Neurological History: Reports: Migraines Psychiatric History: Reports: Depression Endocrine/Metabolic History: Reports: Diabetes, Type II, Hypothyroidism, Obesity/BMI 30+, Vitamin D Deficiency Hematologic History: Reports: Anemia, Iron Deficiency - Infectious Disease History Infectious Disease History: Reports: Novel Coronavirus - Past Surgical History Cardiovascular Surgical History: Reports: None Female Surgical History: Reports: Section Endocrine Surgical History: Reports: None Musculoskeletal Surgical History: Reports: None - SUBSTANCE USE Tobacco Use Status *Q: Never Tobacco User Recreational Drug Use History: No - HOME MEDS Home Medications: Home Meds Omeprazole 20 mg PO BID PRN 12/01/20 [History] Levothyroxine 25 mcg PO ACBREAKFAST 02/18/21 [History] Non-Formulary Medication [NF Drug] 1 tab PO DAILY 02/18/21 [History] metFORMIN HCl [Glucophage XR] 750 mg PO DAILY 02/18/21 [History] - CURRENT (IN HOUSE) MEDS Current Meds: Current Medications Lactated Ringer's (Ringers, Lactated) 1,000 mls @ 125 mls/hr IV ASDIRECTED JOLIE Stop: 06/11/21 23:00 Lidocaine/Sodium Bicarbonate (Lidocaine 1%/Sod Bicarbonate In Ns 8.4% 1 Ml Syri nge) 0.25 ml IDERM ONETIME PRN PRN Reason: Prior to IV Start Stop: 06/11/21 18:00 Sodium Chloride (Sodium Chloride 0.9% 10 Ml Syringe) 10 ml FLUSH ASDIRECTED PRN PRN Reason: Keep Vein Open Stop: 06/11/21 18:00 Discontinued Medications Cefazolin Sodium (Cefazolin 1 Gm Vial) Confirm Administered Dose 2 gm .ROUTE .STK-MED ONE Stop: 06/11/21 07:07 Dexamethasone (Dexamethasone 4 Mg/Ml 5 Ml Mdv) Confirm Administered Dose 20 mg .ROUTE .STK-MED ONE Stop: 06/11/21 07:07 Fentanyl (Fentanyl 250 Mcg/5 Ml Sdv) Confirm Administered Dose 250 mcg .ROUTE .STK-MED ONE Stop: 06/11/21 07:07 Lactated Ringer's (Ringers, Lactated) Confirm Administered Dose 1,000 mls @ as directed .ROUTE .STK-MED ONE Stop: 06/11/21 07:07 Ketorolac Tromethamine (Ketorolac 30 Mg/Ml Sdv) Confirm Administered Dose 30 mg .ROUTE .STK-MED ONE Stop: 06/11/21 07:07 Midazolam HCl (Midazolam 1 Mg/Ml 2 Ml Sdv) Confirm Administered Dose 2 mg .ROUTE .STK-MED ONE Stop: 06/11/21 07:07 Ondansetron HCl (Ondansetron 4 Mg/2 Ml Sdv) Confirm Administered Dose 4 mg .ROUTE .STK-MED ONE Stop: 06/11/21 07:07 Propofol (Propofol 200 Mg/20 Ml Sdv) Confirm Administered Dose 200 mg .ROUTE .STK-MED ONE Stop: 06/11/21 07:07 Rocuronium [place] (Rocuronium 50 Mg/5 Ml Vial) Confirm Administered Dose 50 mg .ROUTE .STK-MED ONE Stop: 06/11/21 07:07
[2021-06-11] MEDS ORDERED: Bupivacaine 0.5%/EPINEPHrine 1:200,000 50 ML MDV ONE (07:30)
--- NOTE | 2021-06-11 08:14 | PCM.SN.2 ---
- Free Text/Narrative Note: After administration of propofol in preparation for general anesthesia for planned laparoscopic cholecystectomy, the patient vomited. The oropharynx was suctioned and the decision was made to abort the operation due to concern for aspiration. Plan to observe patient in recovery, obtain chest x-ray, and possibly admit for monitoring due to concern for aspiration pneumonitis. Time Documentation
[2021-06-11] MEDS ORDERED: Flumazenil 0.1 MG/ML 5 ML MDV ONE (08:47)
[2021-06-11] MEDS ORDERED: Naloxone 0.4 MG/ML SDV ONE (08:47)
[2021-06-11] MEDS ORDERED: Furosemide 20 MG/2 ML VIAL ONE (09:06)
--- NOTE | 2021-06-11 10:05 | CR ---
Chest: Portable view of the chest was obtained. Comparison: No prior chest x-ray is available, prior chest CT of 08/26/17 is available. Diffuse increased density is seen within the left chest. Lesser perihilar density is noted within the right chest. Heart size and mediastinum are normal. Bony structures show nothing acute. Impression: 1. Diffuse increased density within the left chest and mild increased perihilar markings within the right chest. Please rule out COVID disease. Findings could otherwise represent bacterial pneumonia and other etiologies are within the differential. Diagnostic code #3
--- NOTE | 2021-06-11 10:11 | PCM.HP.2 ---
H&P History of Present Illness - General Date of Service: 06/11/21 Admit Problem/Dx: Admission Diagnosis/Problem Admission Diagnosis/Problem Aspiration pneumonitis Source of Information: Patient History Limitations: Reports: No Limitations - History of Present Illness Initial Comments - Free Text/Narative: Mrs. Thompson was scheduled to undergo laparoscopic cholecystectomy today. However, she aspirated on induction and the operation was canceled. She seemed to take an abnormally long time to wake up after receiving standard doses of fentanyl, midazolam and propofol, despite administration of flumazenil and naloxone. While awaiting for her to arouse, vital signs all remained within normal range. In recovery, a chest x-ray shows evidence of left -sided aspiration pneumonitis. She requires BiPAP to maintain SpO2 in the 80-90% range. 5 Pain Score (Numeric/FACES): 5 - Related Data Allergies/Adverse Reactions: Allergies Allergy/AdvReac Type Severity Reaction Status Date / Time No Known Allergies Allergy Verified 06/11/21 07:52 Home Medications: Home Meds Omeprazole 20 mg PO BID PRN 12/01/20 [History] Levothyroxine 25 mcg PO ACBREAKFAST 02/18/21 [History] Non-Formulary Medication [NF Drug] 1 tab PO DAILY 02/18/21 [History] metFORMIN HCl [Glucophage XR] 750 mg PO DAILY 02/18/21 [History] Past Medical History - Past Health History Medical/Surgical History: Denies Medical/Surgical History HEENT History: Reports: Otitis Media, Sinusitis Other HEENT History: Patient has partials. Respiratory History: Reports: Asthma Gastrointestinal History: Reports: Cholelithiasis, GERD, Other (See Below) Other Gastrointestinal History: Rectal bleeding, Rectal Fissure Genitourinary History: Reports: Other (See Below) Other Genitourinary History: Dysuria [employer] History: Reports: Polycystic Ovaries, Other OB/BYN History: Csection 2014 Neurological History: Reports: Migraines Psychiatric History: Reports: Depression Endocrine/Metabolic History: Reports: Diabetes, Type II, Hypothyroidism, Obesity/BMI 30+, Vitamin D Deficiency Hematologic History: Reports: Anemia, Iron Deficiency - Infectious Disease History Infectious Disease History: Reports: Novel Coronavirus - Past Surgical History Cardiovascular Surgical History: Reports: None Female Surgical History: Reports: Section Endocrine Surgical History: Reports: None Musculoskeletal Surgical History: Reports: None Social & Family History - Family History Family Medical History: No Pertinent Family History - Tobacco Use Tobacco Use Status *Q: Never Tobacco User - Caffeine Use Caffeine Use: Reports: Tea - Recreational Drug Use Recreational Drug Use: No Drug Use in Last 12 Months: No H&P Review of Systems - Review of Systems: Review Of Systems: See Below General: Reports: Malaise HEENT: Reports: Sore Throat Pulmonary: Reports: Shortness of Breath, Pleuritic Chest Pain Cardiovascular: Reports: No Symptoms Gastrointestinal: Reports: No Symptoms Genitourinary: Reports: No Symptoms Musculoskeletal: Reports: No Symptoms Skin: Reports: No Symptoms Psychiatric: Reports: No Symptoms Neurological: Reports: No Symptoms Hematologic/Lymphatic: Reports: No Symptoms Immunologic: Reports: No Symptoms Exam - Exam Exam: See Below - Vital Signs Vital Signs: Last Vital Signs Temp 36.6 C 06/11/21 07:05 Pulse 89 06/11/21 07:05 Resp 16 06/11/21 07:05 BP 124/85 06/11/21 07:05 Pulse Ox 97 06/11/21 07:05 Weight: 94 kg - Exam Quality Assessment: Supplemental Oxygen General: Moderate Distress HEENT: Conjunctiva Clear, Pupils Equal Neck: Supple Lungs: Rales, Rhonchi Cardiovascular: Tachycardia GI/Abdominal Exam: Soft, Non-Tender Extremities: Normal Inspection Skin: Warm, Dry Neuro Extensive - Mental Status: Alert Psychiatric: Anxious, Agitated - Patient Data Lab Results Last 24 hrs: Laboratory Results - last 24 hr 06/11/21 06/11/21 06/11/21 Range/Units 06:50 07:16 08:45 POC Glucose 100 H 122 H (70-99) mg/dL Urine HCG, Qual Negative (NEGATIVE) Sepsis Event Note - Evaluation Sepsis Screening Result: No Definite Risk - Focused Exam Vital Signs: Vital Signs Temp Pulse Resp BP Pulse Ox 06/11/21 07:05 36.6 C 89 16 124/85 97 Problem List Initiated/Reviewed/Updated: Yes Orders Last 24hrs: Active Orders 24 hr Category Date Time Status Patient Status [ADT] Routine ADT 06/11/21 09:55 Active Activity as Tolerated [RC] .Routine Care 06/11/21 09:55 Active Antiembolic Devices [RC] PER UNIT ROUTINE Care 06/11/21 09:56 Active Oxygen Therapy [RC] PRN Care 06/11/21 09:55 Active Peripheral IV Care [RC] . DIRECTED Care 06/11/21 00:01 Active RT Aerosol Therapy [RC] ASDIRECTED Care 06/11/21 09:50 Active RT Incentive Spirometry [RC] Q1HWA Care 06/11/21 09:55 Active Urinary Catheter Removal [RC] Per Unit Routine Care 06/11/21 09:57 Active Verify Patient Consent Obtain [RC] ASDIRECTED Care 06/11/21 00:01 Active Vital Signs [RC] Q4HR Care 06/11/21 09:55 Active Nothing Per Oral Diet [DIET] Diet 06/11/21 Breakfast Active Abdomen Pelvis w wo Cont [CT] Routine Exams 06/11/21 10:01 Ordered Chest 1V Frontal [CR] Routine Exams 06/12/21 08:00 Ordered CBC WITH AUTO DIFF [HEME] Routine Lab 06/11/21 09:58 Ordered CMP [COMPREHENSIVE METABOLIC PN,CMP] [CHEM] Routine Lab 06/11/21 09:58 Ordered Albuterol [Proventil Neb Soln] Med 06/11/21 10:30 Once 2.5 mg NEB ONETIME ONE Lactated Ringers [Ringers, Lactated] 1,000 ml Med 06/11/21 00:01 Active IV ASDIRECTED Lactated Ringers [Ringers, Lactated] 1,000 ml Med 06/11/21 10:00 Active IV ASDIRECTED Levothyroxine Med 06/12/21 06:00 Ordered 25 mcg PO ACBREAKFAST Lidocaine 1%/Sod Bicarbonate [Buffered Lidocaine 1% in Med 06/11/21 00:01 Active NS 8.4%] 0.25 ml IDERM ONETIME PRN Omeprazole [Omeprazole] Med 06/11/21 10:00 Ordered 20 mg PO BID PRN Sodium Chloride 0.9% [Saline Flush] Med 06/11/21 00:01 Active 10 ml FLUSH ASDIRECTED PRN Medication Administration Instruction [OM.PC] Routine Oth 06/11/21 00:01 Ordered Peripheral IV Insertion Adult [OM.PC] Routine Oth 06/11/21 00:01 Ordered Sequential Compression Device [OM.PC] Routine Oth 06/11/21 09:55 Ordered Resuscitation Status Routine Resus Stat 06/11/21 09:55 Ordered Medication Orders Albuterol (Albuterol 0.083% 2.5 Mg/3 Ml Neb Soln) 2.5 mg NEB ONETIME ONE Stop: 06/11/21 10:31 Lactated Ringer's (Ringers, Lactated) 1,000 mls @ 125 mls/hr IV ASDIRECTED JOLIE Stop: 06/11/21 12:00 Last Admin: 06/11/21 07:14 Dose: 125 mls/hr Documented by: YASH Lactated Ringer's (Ringers, Lactated) 1,000 mls @ 50 mls/hr IV ASDIRECTED JOLIE Levothyroxine Sodium (Levothyroxine 25 Mcg Tab) 25 mcg PO ACBREAKFAST JOLIE Lidocaine/Sodium Bicarbonate (Lidocaine 1%/Sod Bicarbonate In Ns 8.4% 1 Ml Syringe) 0.25 ml IDERM ONETIME PRN PRN Reason: Prior to IV Start Stop: 06/11/21 18:00 Last Admin: 06/11/21 07:14 Dose: 0.25 ml Documented by: YASH Non-Formulary Medication (Omeprazole [Omeprazole]) 20 mg PO BID PRN PRN Reason: Heartburn Sodium Chloride (Sodium Chloride 0.9% 10 Ml Syringe) 10 ml FLUSH ASDIRECTED PRN PRN Reason: Keep Vein Open Stop: 06/11/21 18:00 Assessment/Plan Comment:: Aspiration event on induction of general anesthesia for elective laparoscopic cholecystectomy. -Admit to ICU for observation, pulmonary toilet -avoid analgesics -Supplemental O2 as needed for maintaining SpO2 >85%, IS, pulmonary toilet, repeat CXR in AM -NPO for now, plan for CT abd/pelvis today given concern for possible underlying hepatic pathology or chronic partial SBO -CBC, CMP -LR @ 50cc/hr -remove hwang catheter - Mortality Measure Prognosis:: Good
[2021-06-11] MEDS ORDERED: Albuterol 0.083% 2.5 MG/3 ML Neb Soln NEB ONE (10:30)
[2021-06-11] MEDS ORDERED: Midazolam 1 MG/ML 2 ML SDV IVPUSH PRN ×2 (10:59→11:54)
[2021-06-11] MEDS ORDERED: Ondansetron 4 MG/2 ML SDV IVPUSH PRN (10:59)
[2021-06-11] MEDS ORDERED: Diatrizoate Meglumine/Diatrizoate Sodium 37% 120 ML Bottle PO ONE (11:17)
[2021-06-11] MEDS ORDERED: Iopamidol 612 MG/ML 100 ML Bottle IVPUSH ONE (11:17)
[2021-06-11] MEDS ORDERED: Sodium Chloride 0.9% 10 ML Syringe FLUSH PRN ×2 (11:17→14:56)
--- NOTE | 2021-06-11 11:48 | PCM.SN.2 ---
- Free Text/Narrative Note: Pt taken to OR at 0752, pt complaining of pain but not nausea at this time. monitors applied, vss. patent IV. Preo2 with patient instructed to take deep breaths in and cough. Propofol 200 mg given IV, Preo2 continued, attempted to ventilate patient and started to vomit, turned patients head to left and suctioned mouth out. able to ventilate patient with mask, spont respirations within approximately 1 min of onset of propofol. Dr Perea at bedside throughout, placed right nare NG with 500c of brown colored material returning. patient sats maintain with just mask O2. Pt appearing not to wake up despite spont respirations in the 20-30s. Flumazenil .2 mg given IV at 0838 with no response, a second dose of .2mg given at 0843 with no response as well. Airway maintained throughout. Glucose checked at 0846 122, Narcan then given .12mg at 0850, with an increase of respiratory rate to 30-40s. Lasix 20 mg IV at 0908. Pt continued to maintain own airway, but no response to pain. decision made to intubate patient and take her to CT scan, intubated with glidescope. cords did look clean, no emesis visualized in airway. 7.0 ett at 22 at teeth. bs bilaterally. hwang catheter placed, while preparing to go to CT scan, patient began moving extremities and trying to pull tubes out. pt able to follow commands. pt extubated and tolerated. sats maintained. Pt taken to PACU, where albuterol treatment given and patient placed on bipap, and cxr obtained. Pt continue to be anxious and has high respiratory rate, and needing constant reassurance to slow down breathing. Plan is to take patient to ICU for continued monitoring and airway management. In discussing events with , and questioning if patient vomits a lot, said no except she vomited last night and on the way to the hospital this am. Pt and did not mention this in my preop assessment or during the nurses preop assessment or to Dr Perea as well. Dr Perea notified of this new information. Time Documentation
[2021-06-11] MEDS ORDERED: Piperacillin/Tazobactam 4.5 GM in Sodium Chloride 0.9% 100 ML IV ONE (12:30)
[2021-06-11] MEDS: Lactated Ringers 1,000 ML IV SCH ×2 (13:33→17:41)
[2021-06-11] MEDS ORDERED: Sodium Chloride 0.9% 500 ML ONE (14:14)
[2021-06-11] MEDS ORDERED: Iopamidol 755 Mg/ML 100 ML Bottle IVPUSH ONE (14:56)
[2021-06-11] MEDS ORDERED: Sodium Chloride 0.9% 100 ML IV SCH (15:00)
[2021-06-11] MEDS ORDERED: Lactated Ringers 1,000 ML IV ONE (15:30)
--- NOTE | 2021-06-11 15:53 | CT ---
CT chest Technique multiple axial sections were obtained through the chest. Intravenous contrast was utilized. Study has been performed as a pulmonary angiogram protocol. Comparison: Prior CT chest study of 08/26/17. Findings: Pulmonary arteries are moderately well opacified. No filling defects are seen to indicate pulmonary embolism. Thoracic aorta shows no aneurysm. Mediastinum and hilar regions show no adenopathy. No pericardial thickening is seen. Moderate sized hiatal hernia is seen with gastroesophageal reflux being noted within the esophagus. Diffuse parenchymal densities are seen within both lungs which shows much more consolidation within the left lung. Bone window settings were reviewed which show nothing acute. Impression: 1. Prominent consolidation within a large portion of the left lung. Lesser parenchymal change is seen within the right lung. Findings presumably are due to diffuse COVID pneumonia. Please correlate. Findings otherwise represent severe bacterial pneumonia. 2. No findings of pulmonary embolism. 3. Moderate hiatal hernia with gastroesophageal reflux. Diagnostic code #5
--- NOTE | 2021-06-11 16:01 | CT ---
CT abdomen and pelvis Technique: Multiple axial sections were obtained from above the dome of the diaphragm inferiorly through the pubic symphysis. Additional delayed images were obtained. Reconstructed coronal and sagittal images were obtained. Please note that this study shows fairly prominent artifact due to respiratory motion. Comparison: Prior right upper quadrant abdominal ultrasound of 05/15/21. Findings: Consolidation is seen within the left lower lung. Liver shows no focal abnormality. There is possible fluid along the lower aspect of the liver. There is deformity within the lower left kidney presumably artifact from respiratory motion. Kidneys otherwise appear within normal limits. Pancreas shows no discrete abnormality. Gallbladder contains no calcified gallstones. Abdominal aorta shows no aneurysm. No retroperitoneal adenopathy is seen. No definite mesenteric abnormalities are seen. No bowel dilatation is seen. Appendix is not definitely visualized. No pelvic mass or adenopathy is seen. Montez catheter is noted within the bladder. Small amount of air is seen within the bladder from recent instrumentation. Delayed images show contrast within the ureters and bladder. Bone window settings were reviewed which show no acute osseous abnormality. Impression: 1. Possible minimal fluid along the lower aspect of the liver. 2. Consolidation within the left lower lung. 3. Motion artifact is noted. 4. Montez catheter within the bladder. No other acute abnormality is appreciated. Diagnostic code #2
[2021-06-11] MEDS ORDERED: Lidocaine 1% 10 ML MDV ONE (17:24)
[2021-06-11] MEDS ORDERED: LORazepam 2 MG/ML SDV IVPUSH ONE (17:26)
[2021-06-11] MEDS ORDERED: HYDROmorphone 0.5 MG/0.5 ML Syringe IVPUSH ONE (17:26)
--- NOTE | 2021-06-11 17:52 | PCM.CONS ---
H&P History of Present Illness - General Date of Service: 06/11/21 Admit Problem/Dx: Admission Diagnosis/Problem Admission Diagnosis/Problem Aspiration pneumonitis - History of Present Illness Initial Comments - Free Text/Narative: Medical service was consulted on this 30-year-old female with history of depression, hypothyroidism, PCOS, reflux, and hiatal hernia who was scheduled for a routine laparoscopic cholecystectomy today. During induction she aspirated and then took an abnormally long time to recover from the standard doses of fentanyl, midazolam, and propofol. Patient was also given flumazenil and naloxone to reverse these agents yet she still was hard to arouse. In recovery and x-ray was obtained that showed a large left-sided aspiration pneumonitis and she required BiPAP to keep her oxygen saturations in the upper 80s to 90% range. Patient was then transferred to the ICU for further rahul toring and treatment. In the ICU patient complained of lower sternal chest pain, was tachypneic, tachycardic, and as already stated hypoxemic. CT angiogram was performed which showed a prominent consolidation within a large portion of the left lung. Lesser parenchymal changes seen within the right lung. Findings presumably are due to diffuse Covid pneumonia. Please correlate. Findings otherwise represent severe bacterial pneumonia. No findings of pulmonary embolism. Moderate hiatal hernia with gastroesophageal reflux. Patient was started on Zosyn for the presumed bacterial/chemical as piration pneumonitis. Patient remained very anxious and respiratory rate was in the 40s for several hours. There was concern that patient may become fatigued from her hyperventilation and tachypnea and require intubation. Patient blood pressure has been soft since arriving in the ICU. She has re ceived approximately 4 L of IV fluids. Blood pressure is currently 96/68 with a MAP of 77. Initial white count was normal at 4.17, hemoglobin 12.4, platelet count 639. Letter lites were normal with normal renal function. Initial lactic acid was 15.0 with repeat at 3.3. Liver function tests were significant for total bilirubin of 1.9 with direct bilirubin of 1.0. AST 257, ALT 226, albumin of 2.7. COVID testing was negative on 06/07. CT of the abdomen was also performed which showed minimal fluid along the lower aspect of the liver. Consolidation within the left lower lung. Nothing other nicole found. 5 Pain Score (Numeric/FACES): 5 - Related Data Allergies/Adverse Reactions: Allergies Allergy/AdvReac Type Severity Reaction Status Date / Time No Known Allergies Allergy Verified 06/11/21 07:52 Home Medications: Home Meds Omeprazole 20 mg PO BID PRN 12/01/20 [History] Levothyroxine 25 mcg PO ACBREAKFAST 02/18/21 [History] Non-Formulary Medication [NF Drug] 1 tab PO DAILY 02/18/21 [History] metFORMIN HCl [Glucophage XR] 750 mg PO DAILY 02/18/21 [History] Past Medical History - Past Health History Medical/Surgical History: Denies Medical/Surgical History HEENT History: Reports: Otitis Media, Sinusitis Other HEENT History: Patient has partials. Respiratory History: Reports: Asthma Gastrointestinal History: Reports: Cholelithiasis, GERD, Other (See Below) Other Gastrointestinal History: Rectal bleeding, Rectal Fissure Genitourinary History: Reports: Other (See Below) Other Genitourinary History: Dysuria [employer] History: Reports: Polycystic Ovaries, Other OB/BYN History: Csection 2014 Neurological History: Reports: Migraines Psychiatric History: Reports: Depression Endocrine/Metabolic History: Reports: Diabetes, Type II, Hypothyroidism, Obesity/BMI 30+, Vitamin D Deficiency Hematologic History: Reports: Anemia, Iron Deficiency - Infectious Disease History Infectious Disease History: Reports: Novel Coronavirus - Past Surgical History HEENT Surgical History: Reports: Oral Surgery Other HEENT Surgeries/Procedures: teeth extraction 2001 Cardiovascular Surgical History: Reports: None Female Surgical History: Reports: Section Endocrine Surgical History: Reports: None Musculoskeletal Surgical History: Reports: None Social & Family History - Family History Family Medical History: No Pertinent Family History - Tobacco Use Tobacco Use Status *Q: Never Tobacco User - Caffeine Use Caffeine Use: Reports: Tea - Recreational Drug Use Recreational Drug Use: No Drug Use in Last 12 Months: No H&P Review of Systems - Review of Systems: Review Of Systems: Comprehensive ROS is negative, except as noted in HPI. Exam - Exam Exam: See Below - Vital Signs Vital Signs: Last Vital Signs Temp 98.5 F 06/11/21 17:27 Pulse 109 H 06/11/21 17:27 Resp 48 H 06/11/21 17:27 BP 96/68 06/11/21 17:27 Pulse Ox 98 06/11/21 17:40 Weight: 221 lb - Exam Quality Assessment: Supplemental Oxygen (BiPAP) General: Alert, Oriented, Severe Distress HEENT: Conjunctiva Clear, Mucosa Moist & [place], Normal Nasal Septum Neck: Supple, Trachea Midline, 2 Lungs: Decreased Breath Sounds (Left lung field with rhonchi, crackles, and slight wheeze). No: Normal Respiratory Effort (Increased rate and effort) Cardiovascular: Regular Rhythm, Normal S1, Normal S2, Tachycardia GI/Abdominal Exam: Soft, Non-Tender, No Organomegaly, No Distention, No Abnormal Bruit, No Mass, Other (Obese). No: Normal Bowel Sounds (Decreased) Extremities: Normal Inspection, Normal Range of Motion, Non-Tender, No Pedal Edema, Normal Capillary Refill Skin: Warm, Dry, Intact Neuro Extensive - Mental Status: Alert, Oriented x3 Psychiatric: Alert, Anxious - Patient Data Lab Results Last 24 hrs: Laboratory Results - last 24 hr 06/11/21 06/11/21 06/11/21 Range/Units 06:50 07:16 08:45 WBC (3.98-10.04) K/mm3 RBC (3.98-5.22) M/mm3 Hgb (11.2-15.7) gm/dl Hct (34.1-44.9) % MCV (79.4-94.8) fl MCH (25.6-32.2) pg MCHC (32.2-35.5) g/dl RDW Std Deviation (36.4-46.3) fL Plt Count (182-369) K/mm3 MPV (9.4-12.3) fl Neut % (Auto) (34.0-71.1) % Lymph % (Auto) (19.3-51.7) % [place] % (Auto) (4.7-12.5) % Eos % (Auto) (0.7-5.8) Baso % (Auto) (0.1-1.2) % Neut # (Auto) (1.56-6.13) K/mm3 Lymph # (Auto) (1.18-3.74) K/mm3 [place] # (Auto) (0.24-0.36) K/mm3 Eos # (Auto) (0.04-0.36) K/mm3 Baso # (Auto) (0.01-0.08) K/mm3 Sodium (136-145) mEq/L Potassium (3.5-5.1) mEq/L Chloride (98-107) mEq/L Carbon Dioxide (21-32) mEq/L Anion Gap (5-15) BUN (7-18) mg/dL Creatinine (0.55-1.02) mg/dL Est Cr Clr Drug Dosing mL/min Estimated GFR (MDRD) (>60) mL/min BUN/Creatinine Ratio (14-18) Glucose (70-99) mg/dL POC Glucose 100 H 122 H (70-99) mg/dL Lactic Acid (0.4-2.0) mmol/L Calcium (8.5-10.1) mg/dL Total Bilirubin (0.2-1.0) mg/dL Direct Bilirubin (0.0-0.2) mg/dl AST (15-37) U/L ALT (14-59) U/L Alkaline Phosphatase (46-116) U/L Total Protein (6.4-8.2) g/dl Albumin (3.4-5.0) g/dl Globulin gm/dL Albumin/Globulin Ratio (1-2) Urine HCG, Qual Negative (NEGATIVE) 06/11/21 06/11/21 06/11/21 Range/Units 09:58 10:20 12:40 WBC 4.17 (3.98-10.04) K/mm3 RBC 5.57 H (3.98-5.22) M/mm3 Hgb 12.4 D (11.2-15.7) gm/dl Hct 41.2 (34.1-44.9) % MCV 74.0 L (79.4-94.8) fl MCH 22.3 L (25.6-32.2) pg MCHC 30.1 L (32.2-35.5) g/dl RDW Std Deviation 48.9 H (36.4-46.3) fL Plt Count 639 H D (182-369) K/mm3 MPV 9.8 (9.4-12.3) fl Neut % (Auto) 63.1 (34.0-71.1) % Lymph % (Auto) 32.6 (19.3-51.7) % [place] % (Auto) 2.6 L (4.7-12.5) % Eos % (Auto) 1.2 (0.7-5.8) Baso % (Auto) 0.5 (0.1-1.2) % Neut # (Auto) 2.63 (1.56-6.13) K/mm3 Lymph # (Auto) 1.36 (1.18-3.74) K/mm3 [place] # (Auto) 0.11 L (0.24-0.36) K/mm3 Eos # (Auto) 0.05 (0.04-0.36) K/mm3 Baso # (Auto) 0.02 (0.01-0.08) K/mm3 Sodium 140 (136-145) mEq/L Potassium 3.8 (3.5-5.1) mEq/L Chloride 104 (98-107) mEq/L Carbon Dioxide 25 (21-32) mEq/L Anion Gap 14.8 (5-15) BUN 7 (7-18) mg/dL Creatinine 0.9 (0.55-1.02) mg/dL Est Cr Clr Drug Dosing 78.21 mL/min Estimated GFR (MDRD) > 60 (>60) mL/min BUN/Creatinine Ratio 7.8 L (14-18) Glucose 155 H (70-99) mg/dL POC Glucose (70-99) mg/dL Lactic Acid 15.0 H* (0.4-2.0) mmol/L Calcium 8.2 L (8.5-10.1) mg/dL Total Bilirubin 1.9 H (0.2-1.0) mg/dL Direct Bilirubin (0.0-0.2) mg/dl AST 257 H (15-37) U/L ALT 226 H (14-59) U/L Alkaline Phosphatase 103 (46-116) U/L Total Protein 6.6 (6.4-8.2) g/dl Albumin 2.7 L (3.4-5.0) g/dl Globulin 3.9 gm/dL Albumin/Globulin Ratio 0.7 L (1-2) Urine HCG, Qual (NEGATIVE) 06/11/21 Range/Units 12:40 WBC (3.98-10.04) K/mm3 RBC (3.98-5.22) M/mm3 Hgb (11.2-15.7) gm/dl Hct (34.1-44.9) % MCV (79.4-94.8) fl MCH (25.6-32.2) pg MCHC (32.2-35.5) g/dl RDW Std Deviation (36.4-46.3) fL Plt Count (182-369) K/mm3 MPV (9.4-12.3) fl Neut % (Auto) (34.0-71.1) % Lymph % (Auto) (19.3-51.7) % [place] % (Auto) (4.7-12.5) % Eos % (Auto) (0.7-5.8) Baso % (Auto) (0.1-1.2) % Neut # (Auto) (1.56-6.13) K/mm3 Lymph # (Auto) (1.18-3.74) K/mm3 [place] # (Auto) (0.24-0.36) K/mm3 Eos # (Auto) (0.04-0.36) K/mm3 Baso # (Auto) (0.01-0.08) K/mm3 Sodium (136-145) mEq/L Potassium (3.5-5.1) mEq/L Chloride (98-107) mEq/L Carbon Dioxide (21-32) mEq/L Anion Gap (5-15) BUN (7-18) mg/dL Creatinine (0.55-1.02) mg/dL Est Cr Clr Drug Dosing mL/min Estimated GFR (MDRD) (>60) mL/min BUN/Creatinine Ratio (14-18) Glucose (70-99) mg/dL POC Glucose (70-99) mg/dL Lactic Acid (0.4-2.0) mmol/L Calcium (8.5-10.1) mg/dL Total Bilirubin (0.2-1.0) mg/dL Direct Bilirubin 1.00 H (0.0-0.2) mg/dl AST (15-37) U/L ALT (14-59) U/L Alkaline Phosphatase (46-116) U/L Total Protein (6.4-8.2) g/dl Albumin (3.4-5.0) g/dl Globulin gm/dL Albumin/Globulin Ratio (1-2) Urine HCG, Qual (NEGATIVE) Result Diagrams: 06/11/21 09:58 06/11/21 10:20 Sepsis Event Note - Evaluation Sepsis Screening Result: Severe Sepsis Risk - Focused Exam Vital Signs: Vital Signs Temp Pulse Resp BP Pulse Ox Pulse Ox 06/11/21 17:40 98 06/11/21 17:27 98.5 F 109 H 48 H 96/68 99 06/11/21 16:00 98.6 F 107 H 51 H 95/64 98 06/11/21 15:35 98.4 F 95 42 H 107/66 92 L 06/11/21 13:47 97.5 F 113 H 40 H 99/67 90 L 06/11/21 13:43 93 L 06/11/21 13:19 89 L 06/11/21 13:00 97.1 F 103 H 40 H 105/65 96 06/11/21 12:45 97.6 F 101 H 33 H 91/52 L 06/11/21 12:30 113 H 36 H 96/67 95 06/11/21 12:15 100.1 F 111 H 41 H 99/56 L 94 L 06/11/21 12:00 100.0 F 110 H 27 H 78/35 L 93 L 06/11/21 11:45 100.0 F 111 H 32 H 92/58 L 94 L 06/11/21 11:30 97.5 F 112 H 40 H 92/47 L 91 L 06/11/21 11:15 108 H 40 H 92/30 L 89 L 06/11/21 11:00 99.9 F 94 34 H 111/97 H 90 L 06/11/21 10:48 89 L 06/11/21 10:45 98.0 F 101 H 39 H 100/67 88 L 06/11/21 10:30 98.0 F 97 45 H 101/65 97 06/11/21 10:15 87 38 H 100/67 78 L 06/11/21 10:00 97.8 F 98 38 H 77/60 L 88 L 06/11/21 09:50 88 36 H 81/49 L 86 L 06/11/21 09:42 97.8 F 99 40 H 77/39 L 85 L 06/11/21 07:05 97.9 F 89 16 124/85 97 Consult PN Assessment/Plan Procedures: Procedures ASSAY OF FERRITIN (05/01/21) ASSAY OF FIBRONECTIN (05/26/17) ASSAY OF FREE THYROXINE (05/01/21) ASSAY OF GONADOTROPIN (FSH) (03/13/21) ASSAY OF GONADOTROPIN (LH) (03/13/21) ASSAY OF LIPASE (05/04/21) ASSAY OF TOTAL ESTRADIOL (03/13/21) ASSAY THYROID STIM HORMONE (03/13/21) ASSAY TRIIODOTHYRONINE (T3) (03/13/21) BLOOD TYPING SEROLOGIC ABO (02/11/17) BLOOD TYPING SEROLOGIC RH(D) (02/11/17) C-REACTIVE PROTEIN (03/07/16) CHORIONIC GONADOTROPIN ASSAY (06/23/16) CHORIONIC GONADOTROPIN TEST (12/02/17) CHYLMD TRACH DNA AMP PROBE (02/11/17) COMPLETE CBC AUTOMATED (06/23/16) COMPLETE CBC W/AUTO DIFF WBC (05/04/21) COMPREHEN METABOLIC PANEL (05/04/21) ECHO EXAM OF ABDOMEN (05/15/21) EMERGENCY DEPT VISIT (05/04/21) EMERGENCY DEPT VISIT (02/18/21) EMERGENCY DEPT VISIT (03/01/17) EVAL AMNIOTIC FLUID PROTEIN (07/28/17) NON-STRESS TEST (06/27/17) GLUCOSE TEST (06/10/17) GLUCOSE TOLERANCE TEST (GTT) (06/17/17) GLYCOSYLATED HEMOGLOBIN TEST (03/13/21) HEMOGLOBIN (10/11/14) HEPATITIS B SURFACE AG IA (02/11/17) HIV-1/HIV-2 1 RESULT ANTBDY (06/22/14) METABOLIC PANEL TOTAL CA (05/01/21) MICROSOMAL ANTIBODY EACH (03/13/21) N.GONORRHOEAE DNA AMP PROB (02/11/17) OB US < 14 WKS SINGLE FETUS (03/01/17) OB US >/= 14 WKS SNGL FETUS (04/17/17) OB US FOLLOW-UP PER FETUS (04/20/17) RBC ANTIBODY SCREEN (02/11/17) ROUTINE VENIPUNCTURE (05/04/21) RUBELLA ANTIBODY (02/11/17) SARS-COV-2 COVID-19 AMP PRB (06/07/21) SMEAR WET [place] SALINE/INK (08/12/17) STREP B DNA AMP PROBE (05/26/17) SYPHILIS TEST NON-TREP QUAL (02/11/17) THER/PROPH/DIAG IV INF INIT (05/04/21) TRANSVAGINAL US NON-OB (03/13/15) TRANSVAGINAL US OBSTETRIC (02/18/17) TRICHOMONAS ASSAY W/OPTIC (08/12/17) TX/PRO/DX INJ NEW DRUG ADDON (05/04/21) URINALYSIS AUTO W/O SCOPE (08/19/17) URINALYSIS AUTO W/SCOPE (09/10/17) URINE BACTERIA CULTURE (06/10/14) URINE CULTURE/COLONY COUNT (09/10/17) VITAMIN D 25 HYDROXY (01/23/21) (1) Aspiration pneumonitis SNOMED Code(s): 567430159 Code(s): J69.0 - PNEUMONITIS DUE TO INHALATION OF FOOD AND VOMIT Current Visit: Yes (2) Hypothyroidism SNOMED Code(s): 29636598 Code(s): E03.9 - HYPOTHYROIDISM, UNSPECIFIED Current Visit: Yes (3) Depressive disorder SNOMED Code(s): 36716629 Code(s): F32.9 - MAJOR DEPRESSIVE DISORDER, SINGLE EPISODE, UNSPECIFIED Current Visit: No (4) GERD (gastroesophageal reflux disease) SNOMED Code(s): 226088691 Code(s): K21.9 - GASTRO-ESOPHAGEAL REFLUX DISEASE WITHOUT ESOPHAGITIS Priority: Low Current Visit: No Qualifiers: Esophagitis presence: esophagitis presence not specified Qualified Code(s): K21.9 - Gastro-esophageal reflux disease without esophagitis Problem List Initiated/Reviewed/Updated: Yes Plan: 30-year-old female who aspirated during induction for an elective laparoscopic cholecystectomy. Aspiration pneumonitis * CT demonstrates chronic consolidation within large portion of the left lung. * Currently stable on BiPAP 08/19 with FiO2 of 100%. * Significant tachypnea made worse by anxiety. * Complaining of significant chest and back pain likely secondary to aspiration pneumonitis, but also gallbladder disease, reflux, hiatal hernia could all be contributing to this pain. * Started on Zosyn for aspiration pneumonia * Anticipate worsening of condition in 24 to 48 hours. * Initial lactic acid fifteen which decreased to 3.3 with fluids * Initially systolic blood pressure was in the 80s. This is improved with fluids. Current MAP is above seventy. * Covid negative on June 07. Not vaccinated against COVID-19 Thrombocytosis * Unknown significance or cause. * Could be an acute phase reactant. Hypothyroidism * Home meds levothyroxine 25 mcg daily PCOS * Home meds: Metformin Depression * Anxiety and depression are likely contributing to her tachypnea. Plan * Continue on BiPAP in the ICU. If patient becomes fatigued or respirations become shallow will need to consider intubation. * Continue Zosyn * Consult RT for pulmonary toilet * Ativan for anxiety to help tolerate BiPAP * Dilaudid while on BiPAP to treat pain. May be able to switch to oral oxycodone tomorrow or the next day. * Follow CBC, CMP, mag, Phos * Follow lactic acid until less than 2.1 * Continue IV fluids and n.p.o. Reassess in the morning.
[2021-06-11] MEDS: LORazepam 2 MG/ML SDV IVPUSH PRN ×2 (19:50→22:39)
[2021-06-11] MEDS: Piperacillin/Tazobactam 4.5 GM in Sodium Chloride 0.9% 100 ML IV SCH (19:50)
[2021-06-11] MEDS: HYDROmorphone 0.5 MG/0.5 ML Syringe IVPUSH PRN (20:51)
[2021-06-12] MEDS: HYDROmorphone 0.5 MG/0.5 ML Syringe IVPUSH PRN ×5 (00:49→22:05)
[2021-06-12] MEDS: Piperacillin/Tazobactam 4.5 GM in Sodium Chloride 0.9% 100 ML IV SCH ×3 (03:47→20:59)
[2021-06-12] MEDS: LORazepam 2 MG/ML SDV IVPUSH PRN ×5 (04:38→19:22)
[2021-06-12] MEDS: Levothyroxine 25 MCG Tab PO SCH ×3 (06:01→08:58)
--- NOTE | 2021-06-12 07:58 | CR ---
Chest: Portable view of the chest was obtained. Comparison: Prior chest x-ray 06/11/[address] as [address] as chest CT study performed on 06/11/21. Patchy increased density is noted within the left chest. Lesser density is noted within the right perihilar region. Heart size and mediastinum are within normal limits. Bony structures show nothing acute. Impression: 1. Increased density within the left chest with mild right-sided perihilar interstitial markings. Findings are fairly stable from prior chest x-ray. Diagnostic code #3
--- NOTE | 2021-06-12 08:45 | PCM48HPAN ---
Post Anesthesia Note - EVALUATION WITHIN 48HRS OF ANESTHETIC Vital Signs in Normal Range: Yes Patient Participated in Evaluation: Yes Respiratory Function Stable: Yes Airway Patent: Yes Cardiovascular Function Stable: Yes Hydration Status Stable: Yes Pain Control Satisfactory: Yes Nausea and Vomiting Control Satisfactory: Yes Mental Status Recovered: Yes Vital Signs: Last Vital Signs Temp 36.2 C 06/12/21 04:00 Pulse 101 H 06/12/21 06:15 Resp 30 H 06/12/21 06:15 BP 91/56 L 06/12/21 05:30 Pulse Ox 91 L 06/12/21 06:15 - COMMENTS/OBSERVATIONS Free Text/Narrative:: Anesthesia Note: Patient resting quietly upon assessment. Bipap with O2 on and patient's vitals are stable. Consult with hospitalist done, and plan to start to wean patient from Bipap. Dr. Solitario states patient is improving appropriately. Patient denies any c/o at this time. Thank you! Destiney LOPEZ
[2021-06-12] MEDS: Magnesium Oxide 400 MG Tab PO SCH ×2 (08:58→20:58)
[2021-06-12] MEDS ORDERED: Magnesium Sulfate/Water 4 GM in Premix Bag 1 BAG IV ONE (09:00)
[2021-06-12] MEDS ORDERED: Dextrose 5%-0.45% NaCl 1,000 ML IV SCH (09:30)
--- NOTE | 2021-06-12 10:29 | PCM.CONSN ---
- General Info Date of Service: 06/12/21 Admission Dx/Problem (Free Text): Admission Diagnosis/Problem Admission Diagnosis/Problem Aspiration pneumonitis Subjective Update: 30-year-old female who was scheduled for an elective laparoscopic cholecystectomy aspirated during induction. She had an uneventful night, but continued to need BiPAP, Ativan for anxiety, and Dilaudid for pain. She was weaned down to approximately 65% O2 on BiPAP. Diet was advanced this morning to clear liquids. Functional Status: Denies: Pain Controlled - Review of Systems General: Reports: Weakness, Other (Anxious) HEENT: Reports: Other (Dry mouth) Pulmonary: Reports: Shortness of Breath, Cough Cardiovascular: Reports: Chest Pain Psychiatric: Reports: Anxiety - Patient Data Vitals - Most Recent: Last Vital Signs Temp 98.5 F 06/12/21 09:00 Pulse 102 H 06/12/21 09:00 Resp 38 H 06/12/21 09:00 BP 96/55 L 06/12/21 09:00 Pulse Ox 93 L 06/12/21 09:00 Weight - Most Recent: 224 lb 3.2 oz I&O - Last 24 Hours: Intake & Output 06/11/21 06/12/21 06/12/21 22:59 06:59 14:59 Intake Total 3100 1307 Output Total 675 475 100 Balance 2425 832 -100 Lab Results Last 24 Hours: Laboratory Results - last 24 hr 06/11/21 06/11/21 06/11/21 Range/Units 09:58 10:20 12:40 WBC 4.17 (3.98-10.04) K/mm3 RBC 5.57 H (3.98-5.22) M/mm3 Hgb 12.4 D (11.2-15.7) gm/dl Hct 41.2 (34.1-44.9) % MCV 74.0 L (79.4-94.8) fl MCH 22.3 L (25.6-32.2) pg MCHC 30.1 L (32.2-35.5) g/dl RDW Std Deviation 48.9 H (36.4-46.3) fL Plt Count 639 H D (182-369) K/mm3 MPV 9.8 (9.4-12.3) fl Neut % (Auto) 63.1 (34.0-71.1) % Lymph % (Auto) 32.6 (19.3-51.7) % Cecil % (Auto) 2.6 L (4.7-12.5) % Eos % (Auto) 1.2 (0.7-5.8) Baso % (Auto) 0.5 (0.1-1.2) % Neut # (Auto) 2.63 (1.56-6.13) K/mm3 Lymph # (Auto) 1.36 (1.18-3.74) K/mm3 Cecil # (Auto) 0.11 L (0.24-0.36) K/mm3 Eos # (Auto) 0.05 (0.04-0.36) K/mm3 Baso # (Auto) 0.02 (0.01-0.08) K/mm3 Manual Slide Review Sodium 140 (136-145) mEq/L Potassium 3.8 (3.5-5.1) mEq/L Chloride 104 (98-107) mEq/L Carbon Dioxide 25 (21-32) mEq/L Anion Gap 14.8 (5-15) BUN 7 (7-18) mg/dL Creatinine 0.9 (0.55-1.02) mg/dL Est Cr Clr Drug Dosing 78.21 mL/min Estimated GFR (MDRD) > 60 (>60) mL/min BUN/Creatinine Ratio 7.8 L (14-18) Glucose 155 H (70-99) mg/dL Lactic Acid 15.0 H* (0.4-2.0) mmol/L Calcium 8.2 L (8.5-10.1) mg/dL Phosphorus (2.6-4.7) mg/dL Magnesium (1.8-2.4) mg/dL Total Bilirubin 1.9 H (0.2-1.0) mg/dL Direct Bilirubin (0.0-0.2) mg/dl AST 257 H (15-37) U/L ALT 226 H (14-59) U/L Alkaline Phosphatase 103 (46-116) U/L Total Protein 6.6 (6.4-8.2) g/dl Albumin 2.7 L (3.4-5.0) g/dl Globulin 3.9 gm/dL Albumin/Globulin Ratio 0.7 L (1-2) 06/11/21 06/11/21 06/11/21 Range/Units 12:40 17:10 19:46 WBC (3.98-10.04) K/mm3 RBC (3.98-5.22) M/mm3 Hgb (11.2-15.7) gm/dl Hct (34.1-44.9) % MCV (79.4-94.8) fl MCH (25.6-32.2) pg MCHC (32.2-35.5) g/dl RDW Std Deviation (36.4-46.3) fL Plt Count (182-369) K/mm3 MPV (9.4-12.3) fl Neut % (Auto) (34.0-71.1) % Lymph % (Auto) (19.3-51.7) % Cecil % (Auto) (4.7-12.5) % Eos % (Auto) (0.7-5.8) Baso % (Auto) (0.1-1.2) % Neut # (Auto) (1.56-6.13) K/mm3 Lymph # (Auto) (1.18-3.74) K/mm3 [place] # (Auto) (0.24-0.36) K/mm3 Eos # (Auto) (0.04-0.36) K/mm3 Baso # (Auto) (0.01-0.08) K/mm3 Manual Slide Review Sodium (136-145) mEq/L Potassium (3.5-5.1) mEq/L Chloride (98-107) mEq/L Carbon Dioxide (21-32) mEq/L Anion Gap (5-15) BUN (7-18) mg/dL Creatinine (0.55-1.02) mg/dL Est Cr Clr Drug Dosing mL/min Estimated GFR (MDRD) (>60) mL/min BUN/Creatinine Ratio (14-18) Glucose (70-99) mg/dL Lactic Acid 3.3 H* 2.8 H* (0.4-2.0) mmol/L Calcium (8.5-10.1) mg/dL Phosphorus (2.6-4.7) mg/dL Magnesium (1.8-2.4) mg/dL Total Bilirubin (0.2-1.0) mg/dL Direct Bilirubin 1.00 H (0.0-0.2) mg/dl AST (15-37) U/L ALT (14-59) U/L Alkaline Phosphatase (46-116) U/L Total Protein (6.4-8.2) g/dl Albumin (3.4-5.0) g/dl Globulin gm/dL Albumin/Globulin Ratio (1-2) 06/11/21 06/12/21 06/12/21 Range/Units 23:45 03:25 03:25 WBC 14.84 H (3.98-10.04) K/mm3 RBC 4.41 (3.98-5.22) M/mm3 Hgb 9.8 L D (11.2-15.7) gm/dl Hct 32.5 L (34.1-44.9) % MCV 73.7 L (79.4-94.8) fl MCH 22.2 L (25.6-32.2) pg MCHC 30.2 L (32.2-35.5) g/dl RDW Std Deviation 48.2 H (36.4-46.3) fL Plt Count 419 H D (182-369) K/mm3 MPV 9.7 (9.4-12.3) fl Neut % (Auto) 86.0 H (34.0-71.1) % Lymph % (Auto) 8.1 L (19.3-51.7) % Cecil % (Auto) 4.4 L (4.7-12.5) % Eos % (Auto) 0.6 L (0.7-5.8) Baso % (Auto) 0.0 L (0.1-1.2) % Neut # (Auto) 12.76 H (1.56-6.13) K/mm3 Lymph # (Auto) 1.20 (1.18-3.74) K/mm3 [place] # (Auto) 0.65 H (0.24-0.36) K/mm3 Eos # (Auto) 0.09 (0.04-0.36) K/mm3 Baso # (Auto) 0.00 L (0.01-0.08) K/mm3 Manual Slide Review Abnormal smear Sodium 137 (136-145) mEq/L Potassium 4.0 (3.5-5.1) mEq/L Chloride 103 (98-107) mEq/L Carbon Dioxide 25 (21-32) mEq/L Anion Gap 13.0 (5-15) BUN 6 L (7-18) mg/dL Creatinine 0.9 (0.55-1.02) mg/dL Est Cr Clr Drug Dosing 78.21 mL/min Estimated GFR (MDRD) > 60 (>60) mL/min BUN/Creatinine Ratio 6.7 L (14-18) Glucose 126 H (70-99) mg/dL Lactic Acid 2.6 H* (0.4-2.0) mmol/L Calcium 7.6 L (8.5-10.1) mg/dL Phosphorus (2.6-4.7) mg/dL Magnesium (1.8-2.4) mg/dL Total Bilirubin 1.5 H (0.2-1.0) mg/dL Direct Bilirubin (0.0-0.2) mg/dl AST 108 H (15-37) U/L ALT 142 H (14-59) U/L Alkaline Phosphatase 72 (46-116) U/L Total Protein 5.9 L (6.4-8.2) g/dl Albumin 2.2 L (3.4-5.0) g/dl Globulin 3.7 gm/dL Albumin/Globulin Ratio 0.6 L (1-2) 06/12/21 06/12/21 Range/Units 03:25 03:25 WBC (3.98-10.04) K/mm3 RBC (3.98-5.22) M/mm3 Hgb (11.2-15.7) gm/dl Hct (34.1-44.9) % MCV (79.4-94.8) fl MCH (25.6-32.2) pg MCHC (32.2-35.5) g/dl RDW Std Deviation (36.4-46.3) fL Plt Count (182-369) K/mm3 MPV (9.4-12.3) fl Neut % (Auto) (34.0-71.1) % Lymph % (Auto) (19.3-51.7) % [place] % (Auto) (4.7-12.5) % Eos % (Auto) (0.7-5.8) Baso % (Auto) (0.1-1.2) % Neut # (Auto) (1.56-6.13) K/mm3 Lymph # (Auto) (1.18-3.74) K/mm3 [place] # (Auto) (0.24-0.36) K/mm3 Eos # (Auto) (0.04-0.36) K/mm3 Baso # (Auto) (0.01-0.08) K/mm3 Manual Slide Review Sodium (136-145) mEq/L Potassium (3.5-5.1) mEq/L Chloride (98-107) mEq/L Carbon Dioxide (21-32) mEq/L Anion Gap (5-15) BUN (7-18) mg/dL Creatinine (0.55-1.02) mg/dL Est Cr Clr Drug Dosing mL/min Estimated GFR (MDRD) (>60) mL/min BUN/Creatinine Ratio (14-18) Glucose (70-99) mg/dL Lactic Acid 1.7 (0.4-2.0) mmol/L Calcium (8.5-10.1) mg/dL Phosphorus 4.5 (2.6-4.7) mg/dL Magnesium 1.3 L (1.8-2.4) mg/dL Total Bilirubin (0.2-1.0) mg/dL Direct Bilirubin (0.0-0.2) mg/dl AST (15-37) U/L ALT (14-59) U/L Alkaline Phosphatase (46-116) U/L Total Protein (6.4-8.2) g/dl Albumin (3.4-5.0) g/dl Globulin gm/dL Albumin/Globulin Ratio (1-2) Med Orders - Current: Current Medications Hydromorphone HCl (Hydromorphone 0.5 Mg/0.5 Ml Syringe) 0.5 mg IVPUSH Q2H PRN PRN Reason: Pain (moderate 4-6) Last Admin: 06/12/21 06:01 Dose: 0.5 mg Documented by: Piperacillin Sod/Tazobactam (Sod 4.5 gm/ Sodium Chloride) 100 mls @ 25 mls/hr IV Q8H JOLIE Last Admin: 06/12/21 03:47 Dose: 25 mls/hr Documented by: Magnesium Sulfate 4 gm/ Premix 50 mls @ 12.5 mls/hr IV ONETIME ONE Stop: 06/12/21 12:59 Last Admin: 06/12/21 09:11 Dose: 12.5 mls/hr Documented by: Dextrose/Sodium Chloride (Dextrose 5%-1/2 Ns) 1,000 mls @ 50 mls/hr IV ASDIRECTED [facility] Levothyroxine Sodium (Levothyroxine 25 Mcg Tab) 25 mcg PO ACBREAKFAST JOLIE Last Admin: 06/12/21 08:58 Dose: 25 mcg Documented by: Lorazepam (Lorazepam 2 Mg/Ml Sdv) 1 mg IVPUSH Q2H PRN PRN Reason: Anxiety Last Admin: 06/12/21 09:05 Dose: 1 mg Documented by: Magnesium Oxide (Magnesium Oxide 400 Mg Tab) 400 mg PO BID JOLIE Stop: 06/13/21 21:01 Last Admin: 06/12/21 08:58 Dose: 400 mg Documented by: Pantoprazole Sodium (Pantoprazole 40 Mg Tab.Cr) 40 mg PO BID PRN PRN Reason: Heartburn Discontinued Medications Albuterol (Albuterol 0.083% 2.5 Mg/3 Ml Neb Soln) 2.5 mg NEB ONETIME ONE Stop: 06/11/21 10:31 Last Admin: 06/11/21 09:53 Dose: 2.5 mg Documented by: Bupivacaine HCl/Epinephrine Bitart (Bupivacaine 0.5%/Epinephrine 1:200,000 50 Ml Mdv) Confirm Administered Dose 50 ml .ROUTE .STK-MED ONE Stop: 06/11/21 07:31 Cefazolin Sodium (Cefazolin 1 Gm Vial) Confirm Administered Dose 2 gm .ROUTE .STK-MED ONE Stop: 06/11/21 07:07 Dexamethasone (Dexamethasone 4 Mg/Ml 5 Ml Mdv) Confirm Administered Dose 20 mg .ROUTE .STK-MED ONE Stop: 06/11/21 07:07 Diatrizoate Meglum/Diatrizoate Sod (Diatrizoate Meglumine/Diatrizoate Sodium 37% 120 Ml Bottle) 120 ml PO ONETIME ONE Stop: 06/11/21 11:18 Fentanyl (Fentanyl 250 Mcg/5 Ml Sdv) Confirm Administered Dose 250 mcg .ROUTE .STK-MED ONE Stop: 06/11/21 07:07 Flumazenil (Flumazenil 0.1 Mg/Ml 5 Ml Mdv) Confirm Administered Dose 0.5 mg .ROUTE .STK-MED ONE Stop: 06/11/21 08:48 Furosemide (Furosemide 20 Mg/2 Ml Vial) Confirm Administered Dose 20 mg .ROUTE .STK-MED ONE Stop: 06/11/21 09:07 Hydromorphone HCl (Hydromorphone 0.5 Mg/0.5 Ml Syringe) 0.5 mg IVPUSH ONETIME ONE Stop: 06/11/21 17:27 Last Admin: 06/11/21 17:47 Dose: 0.5 mg Documented by: Lactated Ringer's (Ringers, Lactated) 1,000 mls @ 125 mls/hr IV ASDIRECTED [facility] Stop: 06/11/21 12:00 Last Admin: 06/11/21 07:14 Dose: 125 mls/hr Documented by: Lactated Ringer's (Ringers, Lactated) Confirm Administered Dose 1,000 mls @ as directed .ROUTE .STK-MED ONE Stop: 06/11/21 07:07 Lactated Ringer's (Ringers, Lactated) 1,000 mls @ 50 mls/hr IV ASDIRECTED [facility] Last Admin: 06/11/21 17:41 Dose: 50 mls/hr Documented by: Piperacillin Sod/Tazobactam (Sod 4.5 gm/ Sodium Chloride) 100 mls @ 200 mls/hr IV ONETIME ONE Stop: 06/11/21 12:59 Last Admin: 06/11/21 12:42 Dose: 200 mls/hr Documented by: Sodium Chloride (Normal Saline) Confirm Administered Dose 500 mls @ as directed .ROUTE .STK-MED ONE Stop: 06/11/21 14:15 Last Admin: 06/11/21 17:42 Dose: 25 mls/hr Documented by: Sodium Chloride (Normal Saline) 100 mls @ 75 mls/hr IV ASDIRECTED [facility] Stop: 06/11/21 23:00 Last Admin: 06/11/21 15:55 Dose: 75 mls/hr Documented by: Lactated Ringer's (Ringers, Lactated) 1,000 mls @ 999 mls/hr IV .BOLUS ONE Stop: 06/11/21 16:30 Last Admin: 06/11/21 15:30 Dose: 999 mls/hr Documented by: Iopamidol (Iopamidol 612 Mg/Ml 100 Ml Bottle) 100 ml IVPUSH ONETIME ONE Stop: 06/11/21 11:18 Iopamidol (Iopamidol 755 Mg/Ml 100 Ml Bottle) 100 ml IVPUSH ONETIME ONE Stop: 06/11/21 14:57 Last Admin: 06/11/21 15:55 Dose: 100 ml Documented by: Ketorolac Tromethamine (Ketorolac 30 Mg/Ml Sdv) Confirm Administered Dose 30 mg .ROUTE .STK-MED ONE Stop: 06/11/21 07:07 Lidocaine HCl (Lidocaine 1% 10 Ml Mdv) Confirm Administered Dose 10 ml .ROUTE .STK-MED ONE Stop: 06/11/21 17:25 Last Admin: 06/11/21 18:14 Dose: Not Given Documented by: Lidocaine/Sodium Bicarbonate (Lidocaine 1%/Sod Bicarbonate In Ns 8.4% 1 Ml Syringe) 0.25 ml IDERM ONETIME PRN PRN Reason: Prior to IV Start Stop: 06/11/21 18:00 Last Admin: 06/11/21 07:14 Dose: 0.25 ml Documented by: Lorazepam (Lorazepam 2 Mg/Ml Sdv) 1 mg IVPUSH ONETIME ONE Stop: 06/11/21 17:27 Last Admin: 06/11/21 17:34 Dose: 1 mg Documented by: Midazolam HCl (Midazolam 1 Mg/Ml 2 Ml Sdv) Confirm Administered Dose 2 mg .ROUTE .STK-MED ONE Stop: 06/11/21 07:07 Midazolam HCl (Midazolam 1 Mg/Ml 2 Ml Sdv) 0.5 mg IVPUSH ONETIME PRN PRN Reason: Anxiety Stop: 06/11/21 13:00 Last Admin: 06/11/21 11:18 Dose: 0.5 mg Documented by: Midazolam HCl (Midazolam 1 Mg/Ml 2 Ml Sdv) 0.5 mg IVPUSH ONETIME PRN PRN Reason: Anxiety Stop: 06/11/21 23:00 Last Admin: 06/11/21 12:01 Dose: 0.5 mg Documented by: Naloxone HCl (Naloxone 0.4 Mg/Ml Sdv) Confirm Administered Dose 0.4 mg .ROUTE .STK-MED ONE Stop: 06/11/21 08:48 Ondansetron HCl (Ondansetron 4 Mg/2 Ml Sdv) Confirm Administered Dose 4 mg .ROUTE .STK-MED ONE Stop: 06/11/21 07:07 Ondansetron HCl (Ondansetron 4 Mg/2 Ml Sdv) 4 mg IVPUSH ONETIME PRN PRN Reason: Nausea/Vomiting Stop: 06/11/21 23:00 Last Admin: 06/11/21 11:24 Dose: 4 mg Documented by: Propofol (Propofol 200 Mg/20 Ml Sdv) Confirm Administered Dose 200 mg .ROUTE .STK-MED ONE Stop: 06/11/21 07:07 Rocuronium [place] (Rocuronium 50 Mg/5 Ml Vial) Confirm Administered Dose 50 mg .ROUTE .STK-MED ONE Stop: 06/11/21 07:07 Sodium Chloride (Sodium Chloride 0.9% 10 Ml Syringe) 10 ml FLUSH ASDIRECTED PRN PRN Reason: Keep Vein Open Stop: 06/11/21 18:00 Sodium Chloride (Sodium Chloride 0.9% 10 Ml Syringe) 10 ml FLUSH ONETIME PRN PRN Reason: IV FLUSH Stop: 06/11/21 13:00 Sodium Chloride (Sodium Chloride 0.9% 10 Ml Syringe) 10 ml FLUSH ONETIME PRN PRN Reason: IV FLUSH Stop: 06/11/21 23:00 - Exam Quality Assessment: Supplemental Oxygen (BiPAP) Urinary Catheter Total Time: 0Days 23Hours General: Alert, Oriented HEENT: Pupils Equal, Mucous Membr. Moist/[place] Neck: Supple Lungs: Crackles (Bibasilar worse on the left), Wheezing. No: Normal Respiratory Effort (Increased rate and effort. Improved from yesterday.) Cardiovascular: Regular Rate, Regular Rhythm GI/Abdominal Exam: Normal Bowel Sounds, Soft, Non-Tender, No Distention Extremities: Normal Inspection, Normal Range of Motion, Non-Tender, No Pedal Edema, Normal Capillary Refill Sepsis Event Note - Evaluation Sepsis Screening Result: Severe Sepsis Risk - Focused Exam Vital Signs: Vital Signs Temp Pulse Pulse Resp BP BP Pulse Ox 06/12/21 09:00 98.5 F 102 H 38 H 96/55 L 93 L 06/12/21 08:32 06/12/21 08:00 98.4 F 99 33 H 95/45 L 92 L 06/12/21 06:15 101 H 30 H 91 L 06/12/21 06:01 113 H 40 H 94 L 06/12/21 06:00 117 H 33 H 94 L 06/12/21 05:59 112 H 41 H 93 L 06/12/21 05:45 91 32 H 95 06/12/21 05:31 99 32 H 94 L 06/12/21 05:30 97 32 H 91/56 L 95 06/12/21 05:29 97 33 H 94 L 06/12/21 05:15 94 32 H 94 L 06/12/21 05:01 110 H 38 H 93 L 06/12/21 05:00 99 31 H 103/72 92 L 06/12/21 04:59 97 30 H 92 L 06/12/21 04:45 93 30 H 94 L 06/12/21 04:31 106 H 30 H 95 06/12/21 04:30 93 24 H 91/59 L 95 06/12/21 04:29 92 24 H 95 06/12/21 04:15 92 26 H 94 L 06/12/21 04:01 93 32 H 94 L 06/12/21 04:00 97.1 F 107 H 31 H 92/56 L 94 L 06/12/21 03:59 91 24 H 94 L 06/12/21 03:45 100 31 H 95 06/12/21 03:31 90 25 H 94 L 06/12/21 03:30 96 27 H 103/57 L 94 L 06/12/21 03:29 96 27 H 94 L 06/12/21 03:15 96 28 H 94 L 06/12/21 03:00 110 H 36 H 95 06/12/21 02:45 91 30 H 96 06/12/21 02:31 89 29 H 94 L 06/12/21 02:30 88 27 H 113/65 96 06/12/21 02:29 88 30 H 95 06/12/21 02:15 89 29 H 95 06/12/21 02:01 95 27 H 94 L 06/12/21 02:00 93 29 H 97/67 94 L 06/12/21 01:59 93 27 H 94 L 06/12/21 01:45 96 31 H 95 06/12/21 01:31 90 28 H 92/65 94 L 06/12/21 01:30 94 28 H 95 06/12/21 01:15 88 28 H 94 L 06/12/21 01:01 94 29 H 101/60 93 L 06/12/21 01:00 95 29 H 92 L 06/12/21 00:45 102 H 42 H 96 06/12/21 00:31 92 32 H 97/69 94 L 06/12/21 00:30 90 30 H 95 06/12/21 00:15 98 29 H 93 L 06/12/21 00:01 99 33 H 92/67 93 L 06/12/21 00:00 96.8 F L 93 29 H 93 L 06/11/21 23:45 111 H 39 H 95 06/11/21 23:43 06/11/21 23:31 98 30 H 97/64 94 L 06/11/21 23:30 95 30 H 94 L 06/11/21 23:16 96 30 H 95/62 94 L 06/11/21 23:15 94 29 H 94 L 06/11/21 23:01 101 H 32 H 93 L 06/11/21 23:00 98 32 H 98/62 93 L 06/11/21 22:59 97 30 H 93 L 06/11/21 22:57 97 31 H 94 L 06/11/21 22:46 104 H 36 H 94 L 06/11/21 22:45 108 H 40 H 120/66 94 L 06/11/21 22:44 110 H 41 H 93 L 06/11/21 22:31 98 37 H 95 06/11/21 22:30 99 31 H 105/53 L 95 Pulse Ox 06/12/21 09:00 06/12/21 08:32 90 L 06/12/21 08:00 06/12/21 06:15 06/12/21 06:01 06/12/21 06:00 06/12/21 05:59 06/12/21 05:45 06/12/21 05:31 06/12/21 05:30 06/12/21 05:29 06/12/21 05:15 06/12/21 05:01 06/12/21 05:00 06/12/21 04:59 06/12/21 04:45 06/12/21 04:31 06/12/21 04:30 06/12/21 04:29 06/12/21 04:15 06/12/21 04:01 06/12/21 04:00 06/12/21 03:59 06/12/21 03:45 06/12/21 03:31 06/12/21 03:30 06/12/21 03:29 06/12/21 03:15 06/12/21 03:00 06/12/21 02:45 06/12/21 02:31 06/12/21 02:30 06/12/21 02:29 06/12/21 02:15 06/12/21 02:01 06/12/21 02:00 06/12/21 01:59 06/12/21 01:45 06/12/21 01:31 06/12/21 01:30 06/12/21 01:15 06/12/21 01:01 06/12/21 01:00 06/12/21 00:45 06/12/21 00:31 06/12/21 00:30 06/12/21 00:15 06/12/21 00:01 06/12/21 00:00 06/11/21 23:45 06/11/21 23:43 95 06/11/21 23:31 06/11/21 23:30 06/11/21 23:16 06/11/21 23:15 06/11/21 23:01 06/11/21 23:00 06/11/21 22:59 06/11/21 22:57 06/11/21 22:46 06/11/21 22:45 06/11/21 22:44 06/11/21 22:31 06/11/21 22:30 Consult PN Assessment/Plan Procedures: Procedures ASSAY OF FERRITIN (05/01/21) ASSAY OF FIBRONECTIN (05/26/17) ASSAY OF FREE THYROXINE (05/01/21) ASSAY OF GONADOTROPIN (FSH) (03/13/21) ASSAY OF GONADOTROPIN (LH) (03/13/21) ASSAY OF LIPASE (05/04/21) ASSAY OF TOTAL ESTRADIOL (03/13/21) ASSAY THYROID STIM HORMONE (03/13/21) ASSAY TRIIODOTHYRONINE (T3) (03/13/21) BLOOD TYPING SEROLOGIC ABO (02/11/17) BLOOD TYPING SEROLOGIC RH(D) (02/11/17) C-REACTIVE PROTEIN (03/07/16) CHORIONIC GONADOTROPIN ASSAY (06/23/16) CHORIONIC GONADOTROPIN TEST (12/02/17) CHYLMD TRACH DNA AMP PROBE (02/11/17) COMPLETE CBC AUTOMATED (06/23/16) COMPLETE CBC W/AUTO DIFF WBC (05/04/21) COMPREHEN METABOLIC PANEL (05/04/21) ECHO EXAM OF ABDOMEN (05/15/21) EMERGENCY DEPT VISIT (05/04/21) EMERGENCY DEPT VISIT (02/18/21) EMERGENCY DEPT VISIT (03/01/17) EVAL AMNIOTIC FLUID PROTEIN (07/28/17) NON-STRESS TEST (06/27/17) GLUCOSE TEST (06/10/17) GLUCOSE TOLERANCE TEST (GTT) (06/17/17) GLYCOSYLATED HEMOGLOBIN TEST (03/13/21) HEMOGLOBIN (10/11/14) HEPATITIS B SURFACE AG IA (02/11/17) HIV-1/HIV-2 1 RESULT ANTBDY (06/22/14) METABOLIC PANEL TOTAL CA (05/01/21) MICROSOMAL ANTIBODY EACH (03/13/21) N.GONORRHOEAE DNA AMP PROB (02/11/17) OB US < 14 WKS SINGLE FETUS (03/01/17) OB US >/= 14 WKS SNGL FETUS (04/17/17) OB US FOLLOW-UP PER FETUS (04/20/17) RBC ANTIBODY SCREEN (02/11/17) ROUTINE VENIPUNCTURE (05/04/21) RUBELLA ANTIBODY (02/11/17) SARS-COV-2 COVID-19 AMP PRB (06/07/21) SMEAR WET [place] SALINE/INK (08/12/17) STREP B DNA AMP PROBE (05/26/17) SYPHILIS TEST NON-TREP QUAL (02/11/17) THER/PROPH/DIAG IV INF INIT (05/04/21) TRANSVAGINAL US NON-OB (03/13/15) TRANSVAGINAL US OBSTETRIC (02/18/17) TRICHOMONAS ASSAY W/OPTIC (08/12/17) TX/PRO/DX INJ NEW DRUG ADDON (05/04/21) URINALYSIS AUTO W/O SCOPE (08/19/17) URINALYSIS AUTO W/SCOPE (09/10/17) URINE BACTERIA CULTURE (06/10/14) URINE CULTURE/COLONY COUNT (09/10/17) VITAMIN D 25 HYDROXY (01/23/21) (1) Aspiration pneumonitis SNOMED Code(s): 949788641 Code(s): J69.0 - PNEUMONITIS DUE TO INHALATION OF FOOD AND VOMIT Current Visit: Yes (2) Hypothyroidism SNOMED Code(s): 83259762 Code(s): E03.9 - HYPOTHYROIDISM, UNSPECIFIED Current Visit: Yes (3) Depressive disorder SNOMED Code(s): 57726351 Code(s): F32.9 - MAJOR DEPRESSIVE DISORDER, SINGLE EPISODE, UNSPECIFIED Current Visit: No (4) GERD (gastroesophageal reflux disease) SNOMED Code(s): 222071738 Code(s): K21.9 - GASTRO-ESOPHAGEAL REFLUX DISEASE WITHOUT ESOPHAGITIS Priority: Low Current Visit: No Qualifiers: Esophagitis presence: esophagitis presence not specified Qualified Code(s): K21.9 - Gastro-esophageal reflux disease without esophagitis Problem List Initiated/Reviewed/Updated: Yes My Orders Last 24 Hours: My Active Orders 06/11/21 18:11 HYDROmorphone [Dilaudid] 0.5 mg IVPUSH Q2H PRN LORazepam [Ativan] 1 mg IVPUSH Q2H PRN 06/12/21 08:32 CORONAVIRUS COVID-19 [place] [[facility]] Routine 06/12/21 09:00 Magnesium Oxide 400 mg PO BID Magnesium Sulfate/Water [Magnesium Sulfate in Water 4 GM/50 ML] 4 gm Premix Bag 1 bag IV ONETIME Plan: 30-year-old female who aspirated during induction for an elective laparoscopic cholecystectomy. Aspiration pneumonitis * CT demonstrates chronic consolidation within large portion of the left lung. * Currently stable on BiPAP 168 with FiO2 of 65%. * Improved tachypnea although made worse by anxiety. * Continued chest and back pain likely secondary to aspiration pneumonitis, but also gallbladder disease, reflux, hiatal hernia could all be contributing to this pain. * Continue Zosyn for aspiration pneumonia * Follow closely over the next 24 to 48 hours * Lactic acidosis resolved * Covid negative on June 07. Not vaccinated against COVID-19 * Covid PCR=+ COVID-19 pneumonia * Patient Covid test came back positive this morning. This is consistent with the CT scan and the chest x-ray. Also, she likely have increased risk due to the aspiration pneumonia. This places the patient at higher risk for respiratory complications. * Start remdesivir, dexamethasone * Continue Zosyn * Consider Actemra or baricitinib if continuing to require noninvasive ventilation/high flow nasal cannula. * Get C-reactive protein * CT angio was negative for PE Thrombocytosis * Unknown significance or cause. * Could be an acute phase reactant. * This is improved from yesterday. * Continue to follow. Hypothyroidism * Home meds levothyroxine 25 mcg daily * Get TSH PCOS * Home meds: Metformin Depression * Anxiety and depression are likely contributing to her tachypnea. Plan * Continue on BiPAP in the ICU. If patient becomes fatigued or respirations become shallow will need to consider intubation. * Continue Zosyn * Consult RT for pulmonary toilet * 5 days of remdesivir * 10 days of dexamethasone * Consider Actemra or baricitinib * Ativan for anxiety to help tolerate BiPAP. Add oral dose 1 mg every 4 hours as needed. * Dilaudid while on BiPAP to treat pain. May be able to switch to oral oxycodone tomorrow or the next day. * Oxycodone 5 mg every 2 hours as needed * Follow CBC, CMP, mag, Phos, C-reactive protein, D-dimer * Get TSH * Continue IV fluids and n.p.o. Reassess in the morning. * Patient has severe anxiety and she just told me she also has panic attacks. She is requesting that her be able to stay in the room with her. This will need to be decided by infection prevention. * VTE prophylaxis with Lovenox * CODE STATUS: Full code
[2021-06-12] MEDS: Dexamethasone 10 MG/ML SDV IVPUSH SCH (13:16)
[2021-06-12] MEDS: Enoxaparin 40 MG/0.4 ML Syringe SUBCUT SCH (13:20)
[2021-06-12] MEDS ORDERED: REMDESIVIR 200 MG in Sodium Chloride 0.9% 250 ML IV ONE (13:30)
[2021-06-12] MEDS: LORazepam 1 MG Tab PO PRN (17:17)
[2021-06-12] MEDS: oxyCODONE 5 MG Tab PO PRN (19:04)
[2021-06-12] MEDS: hydrOXYzine HCl 50 MG Tab PO PRN (20:58)
[2021-06-13] MEDS: HYDROmorphone 0.5 MG/0.5 ML Syringe IVPUSH PRN ×4 (01:41→16:56)
[2021-06-13] MEDS: guaiFENesin/Dextromethorphan 100-10 MG/5 ML Soln 5 ML Cup PO PRN ×2 (01:41→23:50)
[2021-06-13] MEDS: LORazepam 2 MG/ML SDV IVPUSH PRN ×5 (01:49→23:25)
[2021-06-13] MEDS: Levothyroxine 25 MCG Tab PO SCH (05:16)
[2021-06-13] MEDS: Piperacillin/Tazobactam 4.5 GM in Sodium Chloride 0.9% 100 ML IV SCH ×3 (05:16→19:59)
[2021-06-13] MEDS: Enoxaparin 40 MG/0.4 ML Syringe SUBCUT SCH (09:07)
[2021-06-13] MEDS: Dexamethasone 10 MG/ML SDV IVPUSH SCH (09:07)
[2021-06-13] MEDS: Magnesium Oxide 400 MG Tab PO SCH ×2 (09:07→19:59)
[2021-06-13] MEDS: LORazepam 1 MG Tab PO PRN (09:15)
--- NOTE | 2021-06-13 13:26 | PCM.PN ---
- General Info Date of Service: 06/13/21 Admission Dx/Problem (Free Text): Admission Diagnosis/Problem Admission Diagnosis/Problem Aspiration pneumonitis Subjective Update: Medical service is taking over primary care of this 30-year-old female with Covid pneumonia and aspiration pneumonia following induction for a scheduled laparoscopic cholecystectomy. Patient continues on BiPAP and high flow nasal cannula. She has had improving oxygenation with FiO2 at 45% on BiPAP with oxygen saturations in the mid to upper 90s. She continues to have significant anxiety requiring IV Ativan. Patient has been tried on p.o. Ativan with minimal to no benefit. Also, trial of hydroxyzine for her anxiety also failed. Patient is also been tried on oral oxycodone to stop her Dilaudid which has not been successful. She continues to have significant chest pain from the aspiration and with her history of panic attacks this has been a very difficult situation for her. She is also had a significant drop in her hemoglobin by 4 g and is currently at 8.4 g/dL. There has been no documentation of a bowel movement. Functional Status: Reports: Pain Controlled - Review of Systems General: Reports: Fatigue HEENT: Reports: No Symptoms Pulmonary: Reports: Shortness of Breath, Cough Cardiovascular: Reports: Chest Pain Gastrointestinal: Reports: No Symptoms - Patient Data Vitals - Most Recent: Last Vital Signs Temp 97.2 F 06/13/21 12:00 Pulse 79 06/13/21 10:45 Resp 36 H 06/13/21 12:00 BP 97/71 06/13/21 12:00 Pulse Ox 93 L 06/13/21 12:00 Weight - Most Recent: 225 lb 9.6 oz I&O - Last 24 Hours: Intake & Output 06/12/21 06/13/21 06/13/21 22:59 06:59 14:59 Intake Total 1100 340 330 Output Total 1370 530 725 Balance -592 -291 -797 Lab Results Last 24 Hours: Laboratory Results - last 24 hr 06/13/21 06/13/21 Range/Units 06:21 06:21 WBC 14.05 H (3.98-10.04) K/mm3 RBC 3.71 L (3.98-5.22) M/mm3 Hgb 8.4 L (11.2-15.7) gm/dl Hct 28.2 L (34.1-44.9) % MCV 76.0 L (79.4-94.8) fl MCH 22.6 L (25.6-32.2) pg MCHC 29.8 L (32.2-35.5) g/dl RDW Std Deviation 49.3 H (36.4-46.3) fL Plt Count 358 (182-369) K/mm3 MPV 10.3 (9.4-12.3) fl Neut % (Auto) 85.7 H (34.0-71.1) % Lymph % (Auto) 10.3 L (19.3-51.7) % Dent % (Auto) 3.4 L (4.7-12.5) % Eos % (Auto) 0.1 L (0.7-5.8) Baso % (Auto) 0.1 (0.1-1.2) % Neut # (Auto) 12.04 H (1.56-6.13) K/mm3 Lymph # (Auto) 1.45 (1.18-3.74) K/mm3 Dent # (Auto) 0.48 H (0.24-0.36) K/mm3 Eos # (Auto) 0.02 L (0.04-0.36) K/mm3 Baso # (Auto) 0.01 (0.01-0.08) K/mm3 Sodium 139 (136-145) mEq/L Potassium 4.0 (3.5-5.1) mEq/L Chloride 105 (98-107) mEq/L Carbon Dioxide 29 (21-32) mEq/L Anion Gap 9.0 (5-15) BUN 8 (7-18) mg/dL Creatinine 0.6 (0.55-1.02) mg/dL Est Cr Clr Drug Dosing 117.31 mL/min Estimated GFR (MDRD) > 60 (>60) mL/min BUN/Creatinine Ratio 13.3 L (14-18) Glucose 102 H (70-99) mg/dL Calcium 8.2 L (8.5-10.1) mg/dL Phosphorus 2.2 L (2.6-4.7) mg/dL Magnesium 2.3 (1.8-2.4) mg/dL Total Bilirubin 0.5 (0.2-1.0) mg/dL AST 33 (15-37) U/L ALT 79 H (14-59) U/L Alkaline Phosphatase 56 (46-116) U/L C-Reactive Protein 42.5 H* (<1.0) mg/dL Total Protein 6.2 L (6.4-8.2) g/dl Albumin 2.0 L (3.4-5.0) g/dl Globulin 4.2 gm/dL Albumin/Globulin Ratio 0.5 L (1-2) Swapnil Results Last 24 Hours: Microbiology 06/11/21 12:40 Blood Culture - Preliminary Blood - Venous - Lab Draw 06/11/21 12:30 Blood Culture - Preliminary Blood - Venous Med Orders - Current: Current Medications Acetaminophen (Acetaminophen 325 Mg Tab) 650 mg PO Q4H PRN PRN Reason: Fever Greater Than 101 Dexamethasone (Dexamethasone 10 Mg/Ml Sdv) 6 mg IVPUSH DAILY [facility] Stop: 06/21/21 09:01 Last Admin: 06/13/21 09:07 Dose: 6 mg Documented by: Enoxaparin Sodium (Enoxaparin 40 Mg/0.4 Ml Syringe) 40 mg SUBCUT DAILY [facility] Last Admin: 06/13/21 09:07 Dose: 40 mg Documented by: Guaifenesin/Phenylephrine HCl (Guaifenesin/Dextromethorphan 100-10 Mg/5 Ml Soln 5 Ml Cup) 10 ml PO Q4H PRN PRN Reason: Cough Last Admin: 06/13/21 01:41 Dose: 10 ml Documented by: Hydromorphone HCl (Hydromorphone 0.5 Mg/0.5 Ml Syringe) 0.5 mg IVPUSH Q2H PRN PRN Reason: Pain (moderate 4-6) Last Admin: 06/13/21 12:44 Dose: 0.5 mg Documented by: Hydroxyzine HCl (Hydroxyzine Hcl 50 Mg Tab) 50 mg PO Q4H PRN PRN Reason: Anxiety Last Admin: 06/12/21 20:58 Dose: 50 mg Documented by: Piperacillin Sod/Tazobactam (Sod 4.5 gm/ Sodium Chloride) 100 mls @ 25 mls/hr IV Q8H [facility] Last Admin: 06/13/21 11:39 Dose: 25 mls/hr Documented by: Remdesivir 100 mg/ Sodium (Chloride) 100 mls @ 100 mls/hr IV Q24H [facility] Stop: 06/16/21 14:29 Levothyroxine Sodium (Levothyroxine 25 Mcg Tab) 25 mcg PO ACBREAKFAST JOLIE Last Admin: 06/13/21 05:16 Dose: 25 mcg Documented by: Lorazepam (Lorazepam 2 Mg/Ml Sdv) 1 mg IVPUSH Q2H PRN PRN Reason: Anxiety Last Admin: 06/13/21 11:40 Dose: 1 mg Documented by: Lorazepam (Lorazepam 1 Mg Tab) 1 mg PO Q4H PRN PRN Reason: Anxiety Last Admin: 06/13/21 09:15 Dose: 1 mg Documented by: Magnesium Oxide (Magnesium Oxide 400 Mg Tab) 400 mg PO BID JOLIE Stop: 06/13/21 21:01 Last Admin: 06/13/21 09:07 Dose: 400 mg Documented by: Oxycodone HCl (Oxycodone 5 Mg Tab) 5 mg PO Q2H PRN PRN Reason: Pain (moderate 4-6) Last Admin: 06/12/21 19:04 Dose: 5 mg Documented by: Pantoprazole Sodium (Pantoprazole 40 Mg Tab.Cr) 40 mg PO BID PRN PRN Reason: Heartburn Discontinued Medications Albuterol (Albuterol 0.083% 2.5 Mg/3 Ml Neb Soln) 2.5 mg NEB ONETIME ONE Stop: 06/11/21 10:31 Last Admin: 06/11/21 09:53 Dose: 2.5 mg Documented by: Bupivacaine HCl/Epinephrine Bitart (Bupivacaine 0.5%/Epinephrine 1:200,000 50 Ml Mdv) Confirm Administered Dose 50 ml .ROUTE .STK-MED ONE Stop: 06/11/21 07:31 Cefazolin Sodium (Cefazolin 1 Gm Vial) Confirm Administered Dose 2 gm .ROUTE .STK-MED ONE Stop: 06/11/21 07:07 Dexamethasone (Dexamethasone 4 Mg/Ml 5 Ml Mdv) Confirm Administered Dose 20 mg .ROUTE .STK-MED ONE Stop: 06/11/21 07:07 Diatrizoate Meglum/Diatrizoate Sod (Diatrizoate Meglumine/Diatrizoate Sodium 37% 120 Ml Bottle) 120 ml PO ONETIME ONE Stop: 06/11/21 11:18 Last Admin: 06/12/21 20:06 Dose: Not Given Documented by: Fentanyl (Fentanyl 250 Mcg/5 Ml Sdv) Confirm Administered Dose 250 mcg .ROUTE .ST-MED ONE Stop: 06/11/21 07:07 Flumazenil (Flumazenil 0.1 Mg/Ml 5 Ml Mdv) Confirm Administered Dose 0.5 mg .ROUTE .STK-MED ONE Stop: 06/11/21 08:48 Furosemide (Furosemide 20 Mg/2 Ml Vial) Confirm Administered Dose 20 mg .ROUTE .STK-[facility] ONE Stop: 06/11/21 09:07 Hydromorphone HCl (Hydromorphone 0.5 Mg/0.5 Ml Syringe) 0.5 mg IVPUSH ONETIME ONE Stop: 06/11/21 17:27 Last Admin: 06/11/21 17:47 Dose: 0.5 mg Documented by: Lactated Ringer's (Ringers, Lactated) 1,000 mls @ 125 mls/hr IV ASDIRECTED [facility] Stop: 06/11/21 12:00 Last Admin: 06/11/21 07:14 Dose: 125 mls/hr Documented by: Lactated Ringer's (Ringers, Lactated) Confirm Administered Dose 1,000 mls @ as directed .ROUTE .ST-MED ONE Stop: 06/11/21 07:07 Lactated Ringer's (Ringers, Lactated) 1,000 mls @ 50 mls/hr IV ASDIRECTED [facility] Last Admin: 06/11/21 17:41 Dose: 50 mls/hr Documented by: Piperacillin Sod/Tazobactam (Sod 4.5 gm/ Sodium Chloride) 100 mls @ 200 mls/hr IV ONETIME ONE Stop: 06/11/21 12:59 Last Admin: 06/11/21 12:42 Dose: 200 mls/hr Documented by: Sodium Chloride (Normal Saline) Confirm Administered Dose 500 mls @ as directed .ROUTE .STK-MED ONE Stop: 06/11/21 14:15 Last Admin: 06/11/21 17:42 Dose: 25 mls/hr Documented by: Sodium Chloride (Normal Saline) 100 mls @ 75 mls/hr IV ASDIRECTED [facility] Stop: 06/11/21 23:00 Last Admin: 06/11/21 15:55 Dose: 75 mls/hr Documented by: Lactated Ringer's (Ringers, Lactated) 1,000 mls @ 999 mls/hr IV .BOLUS ONE Stop: 06/11/21 16:30 Last Admin: 06/11/21 15:30 Dose: 999 mls/hr Documented by: Magnesium Sulfate 4 gm/ Premix 50 mls @ 12.5 mls/hr IV ONETIME ONE Stop: 06/12/21 12:59 Last Admin: 06/12/21 09:11 Dose: 12.5 mls/hr Documented by: Dextrose/Sodium Chloride (Dextrose 5%-1/2 Ns) 1,000 mls @ 50 mls/hr IV ASDIRECTED [facility] Last Admin: 06/12/21 11:41 Dose: 50 mls/hr Documented by: Remdesivir 200 mg/ Sodium (Chloride) 250 mls @ 250 mls/hr IV ONETIME ONE Stop: 06/12/21 14:29 Last Admin: 06/12/21 13:27 Dose: 250 mls/hr Documented by: Iopamidol (Iopamidol 612 Mg/Ml 100 Ml Bottle) 100 ml IVPUSH ONETIME ONE Stop: 06/11/21 11:18 Last Admin: 06/12/21 20:06 Dose: Not Given Documented by: Iopamidol (Iopamidol 755 Mg/Ml 100 Ml Bottle) 100 ml IVPUSH ONETIME ONE Stop: 06/11/21 14:57 Last Admin: 06/11/21 15:55 Dose: 100 ml Documented by: Ketorolac Tromethamine (Ketorolac 30 Mg/Ml Sdv) Confirm Administered Dose 30 mg .ROUTE .STK-MED ONE Stop: 06/11/21 07:07 Lidocaine HCl (Lidocaine 1% 10 Ml Mdv) Confirm Administered Dose 10 ml .ROUTE .STK-MED ONE Stop: 06/11/21 17:25 Last Admin: 06/11/21 18:14 Dose: Not Given Documented by: Lidocaine/Sodium Bicarbonate (Lidocaine 1%/Sod Bicarbonate In Ns 8.4% 1 Ml Syringe) 0.25 ml IDERM ONETIME PRN PRN Reason: Prior to IV Start Stop: 06/11/21 18:00 Last Admin: 06/11/21 07:14 Dose: 0.25 ml Documented by: Lorazepam (Lorazepam 2 Mg/Ml Sdv) 1 mg IVPUSH ONETIME ONE Stop: 06/11/21 17:27 Last Admin: 06/11/21 17:34 Dose: 1 mg Documented by: Midazolam HCl (Midazolam 1 Mg/Ml 2 Ml Sdv) Confirm Administered Dose 2 mg .ROUTE .STK-MED ONE Stop: 06/11/21 07:07 Midazolam HCl (Midazolam 1 Mg/Ml 2 Ml Sdv) 0.5 mg IVPUSH ONETIME PRN PRN Reason: Anxiety Stop: 06/11/21 13:00 Last Admin: 06/11/21 11:18 Dose: 0.5 mg Documented by: Midazolam HCl (Midazolam 1 Mg/Ml 2 Ml Sdv) 0.5 mg IVPUSH ONETIME PRN PRN Reason: Anxiety Stop: 06/11/21 23:00 Last Admin: 06/11/21 12:01 Dose: 0.5 mg Documented by: Naloxone HCl (Naloxone 0.4 Mg/Ml Sdv) Confirm Administered Dose 0.4 mg .ROUTE .STK-MED ONE Stop: 06/11/21 08:48 Ondansetron HCl (Ondansetron 4 Mg/2 Ml Sdv) Confirm Administered Dose 4 mg .ROUTE .STK-MED ONE Stop: 06/11/21 07:07 Ondansetron HCl (Ondansetron 4 Mg/2 Ml Sdv) 4 mg IVPUSH ONETIME PRN PRN Reason: Nausea/Vomiting Stop: 06/11/21 23:00 Last Admin: 06/11/21 11:24 Dose: 4 mg Documented by: Propofol (Propofol 200 Mg/20 Ml Sdv) Confirm Administered Dose 200 mg .ROUTE .STK-MED ONE Stop: 06/11/21 07:07 Rocuronium [place] (Rocuronium 50 Mg/5 Ml Vial) Confirm Administered Dose 50 mg .ROUTE .STK-MED ONE Stop: 06/11/21 07:07 Sodium Chloride (Sodium Chloride 0.9% 10 Ml Syringe) 10 ml FLUSH ASDIRECTED PRN PRN Reason: Keep Vein Open Stop: 06/11/21 18:00 Sodium Chloride (Sodium Chloride 0.9% 10 Ml Syringe) 10 ml FLUSH ONETIME PRN PRN Reason: IV FLUSH Stop: 06/11/21 13:00 Sodium Chloride (Sodium Chloride 0.9% 10 Ml Syringe) 10 ml FLUSH ONETIME PRN PRN Reason: IV FLUSH Stop: 06/11/21 23:00 - Exam Quality Assessment: Supplemental Oxygen Urinary Catheter Total Time: 2Days 3Hours General: Alert, Oriented, Cooperative HEENT: Pupils Equal, Mucous Membr. Moist/[place]: Supple Lungs: Crackles (Throughout both lung soni worse in the left lower lobe), Rh onchi (Left lower lobe). No: Normal Respiratory Effort (Increased respiratory rate and effort) Cardiovascular: Regular Rate (While resting, but tachycardic when awake), Regul ar Rhythm GI/Abdominal Exam: Normal Bowel Sounds, Soft, Non-Tender, No Organomegaly, No Distention Extremities: Normal Inspection, Non-Tender, No Pedal Edema, Normal Capillary Refill Skin: Warm, Dry, Intact Psy/Mental Status: Alert, Anxious - Patient Data Lab Results Last 24 hrs: Laboratory Results - last 24 hr 06/13/21 06/13/21 Range/Units 06:21 06:21 WBC 14.05 H (3.98-10.04) K/mm3 RBC 3.71 L (3.98-5.22) M/mm3 Hgb 8.4 L (11.2-15.7) gm/dl Hct 28.2 L (34.1-44.9) % MCV 76.0 L (79.4-94.8) fl MCH 22.6 L (25.6-32.2) pg MCHC 29.8 L (32.2-35.5) g/dl RDW Std Deviation 49.3 H (36.4-46.3) fL Plt Count 358 (182-369) K/mm3 MPV 10.3 (9.4-12.3) fl Neut % (Auto) 85.7 H (34.0-71.1) % Lymph % (Auto) 10.3 L (19.3-51.7) % Dent % (Auto) 3.4 L (4.7-12.5) % Eos % (Auto) 0.1 L (0.7-5.8) Baso % (Auto) 0.1 (0.1-1.2) % Neut # (Auto) 12.04 H (1.56-6.13) K/mm3 Lymph # (Auto) 1.45 (1.18-3.74) K/mm3 Dent # (Auto) 0.48 H (0.24-0.36) K/mm3 Eos # (Auto) 0.02 L (0.04-0.36) K/mm3 Baso # (Auto) 0.01 (0.01-0.08) K/mm3 Sodium 139 (136-145) mEq/L Potassium 4.0 (3.5-5.1) mEq/L Chloride 105 (98-107) mEq/L Carbon Dioxide 29 (21-32) mEq/L Anion Gap 9.0 (5-15) BUN 8 (7-18) mg/dL Creatinine 0.6 (0.55-1.02) mg/dL Est Cr Clr Drug Dosing 117.31 mL/min Estimated GFR (MDRD) > 60 (>60) mL/min BUN/Creatinine Ratio 13.3 L (14-18) Glucose 102 H (70-99) mg/dL Calcium 8.2 L (8.5-10.1) mg/dL Phosphorus 2.2 L (2.6-4.7) mg/dL Magnesium 2.3 (1.8-2.4) mg/dL Total Bilirubin 0.5 (0.2-1.0) mg/dL AST 33 (15-37) U/L ALT 79 H (14-59) U/L Alkaline Phosphatase 56 (46-116) U/L C-Reactive Protein 42.5 H* (<1.0) mg/dL Total Protein 6.2 L (6.4-8.2) g/dl Albumin 2.0 L (3.4-5.0) g/dl Globulin 4.2 gm/dL Albumin/Globulin Ratio 0.5 L (1-2) Result Diagrams: 06/13/21 06:21 06/13/21 06:21 Swapnil Results Last 24 hrs: Microbiology 06/11/21 12:40 Blood Culture - Preliminary Blood - Venous - Lab Draw 06/11/21 12:30 Blood Culture - Preliminary Blood - Venous Sepsis Event Note - Evaluation Sepsis Screening Result: Severe Sepsis Risk - Focused Exam Vital Signs: Vital Signs Temp Pulse Resp BP BP Pulse Ox Pulse Ox 06/13/21 12:00 97.2 F 36 H 97/71 93 L 06/13/21 11:05 96 06/13/21 10:45 79 40 H 97 06/13/21 10:30 83 39 H 99 06/13/21 10:15 78 33 H 97 06/13/21 10:01 84 32 H 97 06/13/21 10:00 97.2 F 89 36 H 94/58 L 94/58 L 98 06/13/21 09:59 86 40 H 98 06/13/21 09:45 87 38 H 98 06/13/21 09:30 78 33 H 98 06/13/21 09:15 83 32 H 97 06/13/21 09:00 103 H 45 H 96 06/13/21 08:46 90 36 H 94/51 L 99 06/13/21 08:45 80 36 H 100 06/13/21 08:30 81 35 H 98 06/13/21 08:15 81 25 H 98 06/13/21 08:01 77 37 H 98 06/13/21 08:00 98.1 F 79 34 H 87/55 L 94/51 L 98 06/13/21 07:59 86 33 H 98 06/13/21 07:45 80 33 H 96 06/13/21 07:30 78 33 H 97 06/13/21 07:15 82 40 H 96 06/13/21 07:01 78 36 H 97 06/13/21 07:00 75 33 H 94/52 L 98 06/13/21 06:59 77 36 H 98 06/13/21 06:45 91 32 H 96 06/13/21 06:44 89 34 H 87/56 L 96 98 06/13/21 06:43 85 35 H 96 06/13/21 06:30 77 30 H 96 06/13/21 06:15 92 40 H 99 06/13/21 06:01 84 34 H 96 06/13/21 06:00 86 33 H 88/45 L 88/45 L 95 06/13/21 05:59 79 32 H 96 06/13/21 05:45 106 H 27 H 94 L 06/13/21 05:30 81 30 H 99 06/13/21 05:15 83 28 H 100 06/13/21 05:01 78 31 H 99 06/13/21 05:00 74 33 H 93/64 99 06/13/21 04:59 65 35 H 99 06/13/21 04:45 75 33 H 99 06/13/21 04:30 73 37 H 98 06/13/21 04:15 71 34 H 97 06/13/21 04:01 69 28 H 100 06/13/21 04:00 96.8 F L 84 25 H 96/70 96/70 100 06/13/21 03:59 77 30 H 99 06/13/21 03:45 68 27 H 96 06/13/21 03:30 76 28 H 95 06/13/21 03:15 102 H 46 H 99 06/13/21 03:01 72 31 H 99 06/13/21 03:00 76 30 H 87/56 L 99 06/13/21 02:59 83 32 H 99 06/13/21 02:45 74 30 H 98 06/13/21 02:00 32 H 87/56 L 96 - Problem List & Annotations (1) Aspiration pneumonitis SNOMED Code(s): 706507489 Code(s): J69.0 - PNEUMONITIS DUE TO INHALATION OF FOOD AND VOMIT Status: Acute Current Visit: Yes (2) Hypothyroidism SNOMED Code(s): 89482740 Code(s): E03.9 - HYPOTHYROIDISM, UNSPECIFIED Status: Acute Current Visit: Yes (3) Depressive disorder SNOMED Code(s): 48956535 Code(s): F32.9 - MAJOR DEPRESSIVE DISORDER, SINGLE EPISODE, UNSPECIFIED Status: Acute Current Visit: No (4) GERD (gastroesophageal reflux disease) SNOMED Code(s): 469642440 Code(s): K21.9 - GASTRO-ESOPHAGEAL REFLUX DISEASE WITHOUT ESOPHAGITIS Status: Acute Priority: Low Current Visit: No Qualifiers: Esophagitis presence: esophagitis presence not specified Qualified Code(s): K21.9 - Gastro-esophageal reflux disease without esophagitis - Problem List Review Problem List Initiated/Reviewed/Updated: Yes - My Orders Last 24 Hours: My Active Orders 06/12/21 12:38 Positioning, Patient [RC] ASDIRECTED Acetaminophen [TylenoL] 650 mg PO Q4H PRN Isolation [COMM] Stat RT Acapella [RESPCARE] Routine 06/12/21 12:45 Enoxaparin [Lovenox] 40 mg SUBCUT DAILY 06/12/21 13:00 dexAMETHasone [Decadron] 6 mg IVPUSH DAILY 06/12/21 20:19 hydrOXYzine HCL [Atarax] 50 mg PO Q4H PRN 06/13/21 01:25 Dextromethorphan/guaiFENesin [Robitussin DM] 10 ml PO Q4H PRN 06/13/21 13:30 Remdesivir 100 mg Sodium Chloride 0.9% [Normal Saline] 100 ml IV Q24H 06/14/21 05:11 C-REACTIVE PROTEIN [CHEM] AM CBC WITH AUTO DIFF [HEME] AM CMP [COMPREHENSIVE METABOLIC PN,CMP] [CHEM] AM MAGNESIUM [CHEM] AM PHOSPHORUS [CHEM] AM 06/15/21 05:11 C-REACTIVE PROTEIN [CHEM] AM CBC WITH AUTO DIFF [HEME] AM CMP [COMPREHENSIVE METABOLIC PN,CMP] [CHEM] AM MAGNESIUM [CHEM] AM PHOSPHORUS [CHEM] AM 06/16/21 05:11 C-REACTIVE PROTEIN [CHEM] AM CBC WITH AUTO DIFF [HEME] AM CMP [COMPREHENSIVE METABOLIC PN,CMP] [CHEM] AM MAGNESIUM [CHEM] AM PHOSPHORUS [CHEM] AM 06/17/21 05:11 C-REACTIVE PROTEIN [CHEM] AM CBC WITH AUTO DIFF [HEME] AM CMP [COMPREHENSIVE METABOLIC PN,CMP] [CHEM] AM MAGNESIUM [CHEM] AM PHOSPHORUS [CHEM] AM - Plan Plan:: 30-year-old female who aspirated during induction for an elective laparoscopic cholecystectomy. Aspiration pneumonitis * CT demonstrates chronic consolidation within large portion of the left lung. * Currently improved BiPAP 12/6 with FiO2 of 45%. * Improved tachypnea although made worse by anxiety. * Continued chest and back pain likely secondary to aspiration pneumonitis, but also gallbladder disease, reflux, hiatal hernia could all be contributing to this pain. * Continue Zosyn for aspiration pneumonia * Respiratory status has significantly improved over the last 24 hours * Lactic acidosis resolved * Covid negative on June 07. Not vaccinated against COVID-19 * Repeat COVID-19 testing on June 12 was positive COVID-19 pneumonia * Patient Covid test came back positive this morning. This is consistent with the CT scan and the chest x-ray. Also, she likely have increased risk due to the aspiration pneumonia. This places the patient at higher risk for respiratory complications. * Start remdesivir, dexamethasone * Continue Zosyn * Consider Actemra or baricitinib if continuing to require noninvasive ventilation/high flow nasal cannula. * C-reactive protein increased dramatically to 42.5. Will need to follow. * CT angio was negative for PE Thrombocytosisimproved * Unknown significance or cause. * Could be an acute phase reactant. * This is improved from yesterday. * Continue to follow. Hypothyroidism * Home meds levothyroxine 25 mcg daily * TSH -0.529 PCOS * Home meds: Metformin Depression * Anxiety and depression are likely contributing to her tachypnea. * Ativan frequently needed to keep anxiety at bay. Plan * Continue on BiPAP in the ICU. If patient becomes fatigued or respirations become shallow will need to consider intubation. * Continue Zosyn * Consult RT for pulmonary toilet * 5 days of remdesivir * 10 days of dexamethasone * Consider Actemra or baricitinib. * Ativan for anxiety to help tolerate BiPAP. Add oral dose 1 mg every 4 hours as needed. * Continue trying oral Ativan and hydroxyzine for anxiety * Dilaudid while on BiPAP to treat pain. * Oxycodone 5 mg every 2 hours as needed * Follow CBC, CMP, mag, Phos, C-reactive protein, D-dimer * Get procalcitonin * DC IV fluids and advance diet. Reassess in the morning. * Patient has severe anxiety and panic attacks. * VTE prophylaxis with Lovenox * CODE STATUS: Full code
[2021-06-13] MEDS: REMDESIVIR 100 MG in Sodium Chloride 0.9% 100 ML IV SCH (13:48)
--- NOTE | 2021-06-13 14:26 | PCM.SN.2 ---
- Free Text/Narrative Note: I spoke to the patient and her , Ricky, about using Actemra to treat her COVID-19 pneumonia. I explained that this is an emergency use medication and gave her the fax sheet for patients, parents and caregivers emergency use authorization of Actemra for coronavirus disease 2019. Patient stated that she needed to talk to her prior to the receiving the treatment. Time Documentation
[2021-06-13] MEDS: hydrOXYzine HCl 50 MG Tab PO PRN (19:59)
[2021-06-13] MEDS: Pantoprazole 40 MG Tab.CR PO PRN (19:59)
[2021-06-13] MEDS: oxyCODONE 5 MG Tab PO PRN ×2 (20:11→22:58)
[2021-06-14] MEDS: hydrOXYzine HCl 50 MG Tab PO PRN ×2 (02:15→06:14)
[2021-06-14] MEDS: oxyCODONE 5 MG Tab PO PRN ×2 (02:16→04:16)
[2021-06-14] MEDS: Piperacillin/Tazobactam 4.5 GM in Sodium Chloride 0.9% 100 ML IV SCH ×3 (03:55→20:27)
[2021-06-14] MEDS: Levothyroxine 25 MCG Tab PO SCH (05:08)
[2021-06-14] MEDS: Enoxaparin 40 MG/0.4 ML Syringe SUBCUT SCH (08:59)
[2021-06-14] MEDS: LORazepam 1 MG Tab PO PRN ×2 (09:01→20:28)
[2021-06-14] MEDS: Dexamethasone 10 MG/ML SDV IVPUSH SCH (09:02)
[2021-06-14] MEDS ORDERED: Albuterol/Ipratropium 3.0-0.5 MG/3 ML Neb Soln ONE (12:33)
[2021-06-14] MEDS: Albuterol/Ipratropium 3.0-0.5 MG/3 ML Neb Soln NEB PRN ×2 (12:38→16:34)
[2021-06-14] MEDS: LORazepam 2 MG/ML SDV IVPUSH PRN (12:49)
[2021-06-14] MEDS: REMDESIVIR 100 MG in Sodium Chloride 0.9% 100 ML IV SCH (13:09)
--- NOTE | 2021-06-14 14:53 | PCM.PN ---
- General Info Date of Service: 06/14/21 Admission Dx/Problem (Free Text): Admission Diagnosis/Problem Admission Diagnosis/Problem Aspiration pneumonitis Subjective Update: Medical service is taking over primary care of this 30-year-old female with Covid pneumonia and aspiration pneumonia following induction for a scheduled laparoscopic cholecystectomy. Patient improved in the last 24 hours and now is on nasal cannula. Initially she refused remdesivir, but after she discussed it with her she agreed to continue on remdesivir. She does refuse Actemra at this time because it is a emergency use medication. Anxiety appears to be getting better and she has been using oral medication instead of IV. Pain is also improved. Functional Status: Reports: Pain Controlled - Review of Systems General: Reports: Fatigue HEENT: Reports: No Symptoms Pulmonary: Reports: Shortness of Breath, Cough Cardiovascular: Reports: No Symptoms Gastrointestinal: Reports: No Symptoms Musculoskeletal: Reports: No Symptoms Psychiatric: Reports: No Symptoms - Patient Data Vitals - Most Recent: Last Vital Signs Temp 97.3 F 06/14/21 12:00 Pulse 75 06/14/21 10:45 Resp 26 H 06/14/21 12:00 BP 126/83 06/14/21 12:00 Pulse Ox 90 L 06/14/21 12:38 Weight - Most Recent: 218 lb 11.2 oz I&O - Last 24 Hours: Intake & Output 06/13/21 06/14/21 06/14/21 22:59 06:59 14:59 Intake Total 0822 448 9773 Output Total 166 687 0821 Balance 570 -425 25 Lab Results Last 24 Hours: Laboratory Results - last 24 hr 06/13/21 06/14/21 06/14/21 Range/Units 06:21 05:05 05:05 WBC 16.19 H (3.98-10.04) K/mm3 RBC 3.85 L (3.98-5.22) M/mm3 Hgb 8.7 L (11.2-15.7) gm/dl Hct 29.2 L (34.1-44.9) % MCV 75.8 L (79.4-94.8) fl MCH 22.6 L (25.6-32.2) pg MCHC 29.8 L (32.2-35.5) g/dl RDW Std Deviation 50.3 H (36.4-46.3) fL Plt Count 405 H (182-369) K/mm3 MPV 10.2 (9.4-12.3) fl Neut % (Auto) 83.9 H (34.0-71.1) % Lymph % (Auto) 11.4 L (19.3-51.7) % Carter % (Auto) 4.3 L (4.7-12.5) % Eos % (Auto) 0.1 L (0.7-5.8) Baso % (Auto) 0.1 (0.1-1.2) % Neut # (Auto) 13.57 H (1.56-6.13) K/mm3 Lymph # (Auto) 1.85 (1.18-3.74) K/mm3 Carter # (Auto) 0.70 H (0.24-0.36) K/mm3 Eos # (Auto) 0.02 L (0.04-0.36) K/mm3 Baso # (Auto) 0.01 (0.01-0.08) K/mm3 Sodium 140 (136-145) mEq/L Potassium 4.0 (3.5-5.1) mEq/L Chloride 105 (98-107) mEq/L Carbon Dioxide 26 (21-32) mEq/L Anion Gap 13.0 (5-15) BUN 13 (7-18) mg/dL Creatinine 0.7 (0.55-1.02) mg/dL Est Cr Clr Drug Dosing 100.55 mL/min Estimated GFR (MDRD) > 60 (>60) mL/min BUN/Creatinine Ratio 18.6 H (14-18) Glucose 93 (70-99) mg/dL Calcium 8.7 (8.5-10.1) mg/dL Phosphorus 2.9 (2.6-4.7) mg/dL Magnesium 2.1 (1.8-2.4) mg/dL Total Bilirubin 0.4 (0.2-1.0) mg/dL AST 21 (15-37) U/L ALT 44 (14-59) U/L Alkaline Phosphatase 53 (46-116) U/L C-Reactive Protein 25.1 H* (<1.0) mg/dL Total Protein 6.6 (6.4-8.2) g/dl Albumin 2.2 L (3.4-5.0) g/dl Globulin 4.4 gm/dL Albumin/Globulin Ratio 0.5 L (1-2) Procalcitonin 10.44 H ng/mL Swapnil Results Last 24 Hours: Microbiology 06/11/21 12:40 Blood Culture - Preliminary Blood - Venous - Lab Draw 06/11/21 12:30 Blood Culture - Preliminary Blood - Venous Med Orders - Current: Current Medications Acetaminophen (Acetaminophen 325 Mg Tab) 650 mg PO Q4H PRN PRN Reason: Fever Greater Than 101 Albuterol/Ipratropium (Albuterol/Ipratropium 3.0-0.5 Mg/3 Ml Neb Soln) 3 ml NEB Q4HRRT PRN PRN Reason: sob/wheezing Last Admin: 06/14/21 12:38 Dose: 3 ml Documented by: Dexamethasone (Dexamethasone 10 Mg/Ml Sdv) 6 mg IVPUSH DAILY [facility] Stop: 06/21/21 09:01 Last Admin: 06/14/21 09:02 Dose: 6 mg Documented by: Enoxaparin Sodium (Enoxaparin 40 Mg/0.4 Ml Syringe) 40 mg SUBCUT DAILY [facility] Last Admin: 06/14/21 08:59 Dose: 40 mg Documented by: Guaifenesin/Phenylephrine HCl (Guaifenesin/Dextromethorphan 100-10 Mg/5 Ml Soln 5 Ml Cup) 10 ml PO Q4H PRN PRN Reason: Cough Last Admin: 06/13/21 23:50 Dose: 10 ml Documented by: Hydromorphone HCl (Hydromorphone 0.5 Mg/0.5 Ml Syringe) 0.5 mg IVPUSH Q2H PRN PRN Reason: Pain (moderate 4-6) Last Admin: 06/13/21 16:56 Dose: 0.5 mg Documented by: Hydroxyzine HCl (Hydroxyzine Hcl 50 Mg Tab) 50 mg PO Q4H PRN PRN Reason: Anxiety Last Admin: 06/14/21 06:14 Dose: 50 mg Documented by: Piperacillin Sod/Tazobactam (Sod 4.5 gm/ Sodium Chloride) 100 mls @ 25 mls/hr IV Q8H [facility] Last Admin: 06/14/21 12:55 Dose: 25 mls/hr Documented by: Remdesivir 100 mg/ Sodium (Chloride) 100 mls @ 100 mls/hr IV Q24H [facility]OLIE Stop: 06/16/21 14:29 Last Admin: 06/14/21 13:09 Dose: 100 mls/hr Documented by: Levothyroxine Sodium (Levothyroxine 25 Mcg Tab) 25 mcg PO ACBREAKFAST JOLIE Last Admin: 06/14/21 05:08 Dose: 25 mcg Documented by: Lorazepam (Lorazepam 2 Mg/Ml Sdv) 1 mg IVPUSH Q2H PRN PRN Reason: Anxiety Last Admin: 06/14/21 12:49 Dose: 1 mg Documented by: Lorazepam (Lorazepam 1 Mg Tab) 1 mg PO Q4H PRN PRN Reason: Anxiety Last Admin: 06/14/21 09:01 Dose: 1 mg Documented by: Oxycodone HCl (Oxycodone 5 Mg Tab) 5 mg PO Q2H PRN PRN Reason: Pain (moderate 4-6) Last Admin: 06/14/21 04:16 Dose: 5 mg Documented by: Pantoprazole Sodium (Pantoprazole 40 Mg Tab.Cr) 40 mg PO BID PRN PRN Reason: Heartburn Last Admin: 06/13/21 19:59 Dose: 40 mg Documented by: Discontinued Medications Albuterol (Albuterol 0.083% 2.5 Mg/3 Ml Neb Soln) 2.5 mg NEB ONETIME ONE Stop: 06/11/21 10:31 Last Admin: 06/11/21 09:53 Dose: 2.5 mg Documented by: Albuterol/Ipratropium (Albuterol/Ipratropium 3.0-0.5 Mg/3 Ml Neb Soln) Confirm Administered Dose 3 ml .ROUTE .STK-MED ONE Stop: 06/14/21 12:34 Last Admin: 06/14/21 13:06 Dose: Not Given Documented by: Bupivacaine HCl/Epinephrine Bitart (Bupivacaine 0.5%/Epinephrine 1:200,000 50 Ml Mdv) Confirm Administered Dose 50 ml .ROUTE .STK-MED ONE Stop: 06/11/21 07:31 Cefazolin Sodium (Cefazolin 1 Gm Vial) Confirm Administered Dose 2 gm .ROUTE .STK-MED ONE Stop: 06/11/21 07:07 Dexamethasone (Dexamethasone 4 Mg/Ml 5 Ml Mdv) Confirm Administered Dose 20 mg .ROUTE .STK-MED ONE Stop: 06/11/21 07:07 Diatrizoate Meglum/Diatrizoate Sod (Diatrizoate Meglumine/Diatrizoate Sodium 37% 120 Ml Bottle) 120 ml PO ONETIME ONE Stop: 06/11/21 11:18 Last Admin: 06/12/21 20:06 Dose: Not Given Documented by: Fentanyl (Fentanyl 250 Mcg/5 Ml Sdv) Confirm Administered Dose 250 mcg .ROUTE .STK-MED ONE Stop: 06/11/21 07:07 Flumazenil (Flumazenil 0.1 Mg/Ml 5 Ml Mdv) Confirm Administered Dose 0.5 mg .ROUTE .STK-MED ONE Stop: 06/11/21 08:48 Furosemide (Furosemide 20 Mg/2 Ml Vial) Confirm Administered Dose 20 mg .ROUTE .STK-MED ONE Stop: 06/11/21 09:07 Hydromorphone HCl (Hydromorphone 0.5 Mg/0.5 Ml Syringe) 0.5 mg IVPUSH ONETIME ONE Stop: 06/11/21 17:27 Last Admin: 06/11/21 17:47 Dose: 0.5 mg Documented by: Lactated Ringer's (Ringers, Lactated) 1,000 mls @ 125 mls/hr IV ASDIRECTED [facility] Stop: 06/11/21 12:00 Last Admin: 06/11/21 07:14 Dose: 125 mls/hr Documented by: Lactated Ringer's (Ringers, Lactated) Confirm Administered Dose 1,000 mls @ as directed .ROUTE .STK-MED ONE Stop: 06/11/21 07:07 Lactated Ringer's (Ringers, Lactated) 1,000 mls @ 50 mls/hr IV ASDIRECTED [facility] Last Admin: 06/11/21 17:41 Dose: 50 mls/hr Documented by: Piperacillin Sod/Tazobactam (Sod 4.5 gm/ Sodium Chloride) 100 mls @ 200 mls/hr IV ONETIME ONE Stop: 06/11/21 12:59 Last Admin: 06/11/21 12:42 Dose: 200 mls/hr Documented by: Sodium Chloride (Normal Saline) Confirm Administered Dose 500 mls @ as directed .ROUTE .STK-MED ONE Stop: 06/11/21 14:15 Last Admin: 06/11/21 17:42 Dose: 25 mls/hr Documented by: Sodium Chloride (Normal Saline) 100 mls @ 75 mls/hr IV ASDIRECTED [facility] Stop: 06/11/21 23:00 Last Admin: 06/11/21 15:55 Dose: 75 mls/hr Documented by: Lactated Ringer's (Ringers, Lactated) 1,000 mls @ 999 mls/hr IV .BOLUS ONE Stop: 06/11/21 16:30 Last Admin: 06/11/21 15:30 Dose: 999 mls/hr Documented by: Magnesium Sulfate 4 gm/ Premix 50 mls @ 12.5 mls/hr IV ONETIME ONE Stop: 06/12/21 12:59 Last Admin: 06/12/21 09:11 Dose: 12.5 mls/hr Documented by: Dextrose/Sodium Chloride (Dextrose 5%-1/2 Ns) 1,000 mls @ 50 mls/hr IV ASDIRECTED [facility] Last Admin: 06/12/21 11:41 Dose: 50 mls/hr Documented by: Remdesivir 200 mg/ Sodium (Chloride) 250 mls @ 250 mls/hr IV ONETIME ONE Stop: 06/12/21 14:29 Last Admin: 06/12/21 13:27 Dose: 250 mls/hr Documented by: Iopamidol (Iopamidol 612 Mg/Ml 100 Ml Bottle) 100 ml IVPUSH ONETIME ONE Stop: 06/11/21 11:18 Last Admin: 06/12/21 20:06 Dose: Not Given Documented by: Iopamidol (Iopamidol 755 Mg/Ml 100 Ml Bottle) 100 ml IVPUSH ONETIME ONE Stop: 06/11/21 14:57 Last Admin: 06/11/21 15:55 Dose: 100 ml Documented by: Ketorolac Tromethamine (Ketorolac 30 Mg/Ml Sdv) Confirm Administered Dose 30 mg .ROUTE .STK-MED ONE Stop: 06/11/21 07:07 Lidocaine HCl (Lidocaine 1% 10 Ml Mdv) Confirm Administered Dose 10 ml .ROUTE .STK-MED ONE Stop: 06/11/21 17:25 Last Admin: 06/11/21 18:14 Dose: Not Given Documented by: Lidocaine/Sodium Bicarbonate (Lidocaine 1%/Sod Bicarbonate In Ns 8.4% 1 Ml Syringe) 0.25 ml IDERM ONETIME PRN PRN Reason: Prior to IV Start Stop: 06/11/21 18:00 Last Admin: 06/11/21 07:14 Dose: 0.25 ml Documented by: Lorazepam (Lorazepam 2 Mg/Ml Sdv) 1 mg IVPUSH ONETIME ONE Stop: 06/11/21 17:27 Last Admin: 06/11/21 17:34 Dose: 1 mg Documented by: Magnesium Oxide (Magnesium Oxide 400 Mg Tab) 400 mg PO BID JOLIE Stop: 06/13/21 21:01 Last Admin: 06/13/21 19:59 Dose: 400 mg Documented by: Midazolam HCl (Midazolam 1 Mg/Ml 2 Ml Sdv) Confirm Administered Dose 2 mg .ROUTE .STK-MED ONE Stop: 06/11/21 07:07 Midazolam HCl (Midazolam 1 Mg/Ml 2 Ml Sdv) 0.5 mg IVPUSH ONETIME PRN PRN Reason: Anxiety Stop: 06/11/21 13:00 Last Admin: 06/11/21 11:18 Dose: 0.5 mg Documented by: Midazolam HCl (Midazolam 1 Mg/Ml 2 Ml Sdv) 0.5 mg IVPUSH ONETIME PRN PRN Reason: Anxiety Stop: 06/11/21 23:00 Last Admin: 06/11/21 12:01 Dose: 0.5 mg Documented by: Naloxone HCl (Naloxone 0.4 Mg/Ml Sdv) Confirm Administered Dose 0.4 mg .ROUTE .STK-MED ONE Stop: 06/11/21 08:48 Ondansetron HCl (Ondansetron 4 Mg/2 Ml Sdv) Confirm Administered Dose 4 mg .ROUTE .STK-MED ONE Stop: 06/11/21 07:07 Ondansetron HCl (Ondansetron 4 Mg/2 Ml Sdv) 4 mg IVPUSH ONETIME PRN PRN Reason: Nausea/Vomiting Stop: 06/11/21 23:00 Last Admin: 06/11/21 11:24 Dose: 4 mg Documented by: Propofol (Propofol 200 Mg/20 Ml Sdv) Confirm Administered Dose 200 mg .ROUTE .STK-MED ONE Stop: 06/11/21 07:07 Rocuronium [place] (Rocuronium 50 Mg/5 Ml Vial) Confirm Administered Dose 50 mg .ROUTE .STK-MED ONE Stop: 06/11/21 07:07 Sodium Chloride (Sodium Chloride 0.9% 10 Ml Syringe) 10 ml FLUSH ASDIRECTED PRN PRN Reason: Keep Vein Open Stop: 06/11/21 18:00 Sodium Chloride (Sodium Chloride 0.9% 10 Ml Syringe) 10 ml FLUSH ONETIME PRN PRN Reason: IV FLUSH Stop: 06/11/21 13:00 Sodium Chloride (Sodium Chloride 0.9% 10 Ml Syringe) 10 ml FLUSH ONETIME PRN PRN Reason: IV FLUSH Stop: 06/11/21 23:00 - Exam Quality Assessment: Supplemental Oxygen Urinary Catheter Total Time: 3Days 3Hours General: Alert, Oriented HEENT: Pupils Equal, Mucous Membr. Moist/[place] Neck: Supple Lungs: Crackles (Throughout both lung soni worse on the left). No: Normal Respiratory Effort (Improved respiratory rate but still elevated in the 20s most the time) Cardiovascular: Regular Rate, Regular Rhythm GI/Abdominal Exam: Normal Bowel Sounds, Soft, Non-Tender, No Distention Extremities: Normal Inspection, Non-Tender, Normal Capillary Refill Skin: Warm, Dry, Intact Psy/Mental Status: Alert, Anxious - Patient Data Lab Results Last 24 hrs: Laboratory Results - last 24 hr 06/13/21 06/14/21 06/14/21 Range/Units 06:21 05:05 05:05 WBC 16.19 H (3.98-10.04) K/mm3 RBC 3.85 L (3.98-5.22) M/mm3 Hgb 8.7 L (11.2-15.7) gm/dl Hct 29.2 L (34.1-44.9) % MCV 75.8 L (79.4-94.8) fl MCH 22.6 L (25.6-32.2) pg MCHC 29.8 L (32.2-35.5) g/dl RDW Std Deviation 50.3 H (36.4-46.3) fL Plt Count 405 H (182-369) K/mm3 MPV 10.2 (9.4-12.3) fl Neut % (Auto) 83.9 H (34.0-71.1) % Lymph % (Auto) 11.4 L (19.3-51.7) % Carter % (Auto) 4.3 L (4.7-12.5) % Eos % (Auto) 0.1 L (0.7-5.8) Baso % (Auto) 0.1 (0.1-1.2) % Neut # (Auto) 13.57 H (1.56-6.13) K/mm3 Lymph # (Auto) 1.85 (1.18-3.74) K/mm3 Carter # (Auto) 0.70 H (0.24-0.36) K/mm3 Eos # (Auto) 0.02 L (0.04-0.36) K/mm3 Baso # (Auto) 0.01 (0.01-0.08) K/mm3 Sodium 140 (136-145) mEq/L Potassium 4.0 (3.5-5.1) mEq/L Chloride 105 (98-107) mEq/L Carbon Dioxide 26 (21-32) mEq/L Anion Gap 13.0 (5-15) BUN 13 (7-18) mg/dL Creatinine 0.7 (0.55-1.02) mg/dL Est Cr Clr Drug Dosing 100.55 mL/min Estimated GFR (MDRD) > 60 (>60) mL/min BUN/Creatinine Ratio 18.6 H (14-18) Glucose 93 (70-99) mg/dL Calcium 8.7 (8.5-10.1) mg/dL Phosphorus 2.9 (2.6-4.7) mg/dL Magnesium 2.1 (1.8-2.4) mg/dL Total Bilirubin 0.4 (0.2-1.0) mg/dL AST 21 (15-37) U/L ALT 44 (14-59) U/L Alkaline Phosphatase 53 (46-116) U/L C-Reactive Protein 25.1 H* (<1.0) mg/dL Total Protein 6.6 (6.4-8.2) g/dl Albumin 2.2 L (3.4-5.0) g/dl Globulin 4.4 gm/dL Albumin/Globulin Ratio 0.5 L (1-2) Procalcitonin 10.44 H ng/mL Result Diagrams: 06/14/21 05:05 06/14/21 05:05 Swapnil Results Last 24 hrs: Microbiology 06/11/21 12:40 Blood Culture - Preliminary Blood - Venous - Lab Draw 06/11/21 12:30 Blood Culture - Preliminary Blood - Venous Sepsis Event Note - Evaluation Sepsis Screening Result: Sepsis Risk - Focused Exam Vital Signs: Vital Signs Temp Pulse Resp BP BP Pulse Ox Pulse Ox 06/14/21 12:38 06/14/21 12:29 06/14/21 12:00 97.3 F 26 H 126/83 92 L 06/14/21 10:45 75 38 H 92 L 06/14/21 10:30 92 41 H 94 L 06/14/21 10:15 104 H 25 H 84 L 06/14/21 10:01 92 19 91 L 06/14/21 10:00 97.7 F 78 49 H 112/75 112/75 94 L 06/14/21 09:59 98 51 H 92 L 06/14/21 09:45 59 L 24 H 91 L 06/14/21 09:30 61 28 H 89 L 06/14/21 09:15 79 23 H 86 L 06/14/21 09:00 91 29 H 90 L 06/14/21 08:45 95 58 H 83 L 06/14/21 08:30 66 32 H 93 L 06/14/21 08:15 67 28 H 95 06/14/21 08:01 70 41 H 94 L 06/14/21 08:00 97.8 F 59 L 32 H 105/76 105/76 95 06/14/21 07:59 63 33 H 95 06/14/21 07:45 63 30 H 95 06/14/21 07:30 65 31 H 98 06/14/21 07:15 61 34 H 96 06/14/21 07:00 60 29 H 97 06/14/21 06:45 107 H 45 H 94 L 06/14/21 06:30 70 32 H 86 L 06/14/21 06:15 93 41 H 86 L 06/14/21 06:01 67 32 H 95 06/14/21 06:00 67 28 H 109/73 109/73 96 06/14/21 05:59 65 37 H 95 06/14/21 05:45 71 29 H 94 L 06/14/21 05:34 93 L 06/14/21 05:30 69 28 H 94 L 06/14/21 05:15 74 32 H 100 06/14/21 05:00 72 35 H 99 06/14/21 04:45 58 L 24 H 92 L 06/14/21 04:30 55 L 25 H 92 L 06/14/21 04:15 61 23 H 93 L 06/14/21 04:01 62 28 H 93 L 06/14/21 04:00 97.2 F 79 23 H 103/74 103/74 92 L 06/14/21 03:59 58 L 26 H 94 L 06/14/21 03:45 60 26 H 93 L 06/14/21 03:30 64 25 H 93 L 06/14/21 03:15 67 30 H 93 L 06/14/21 03:00 61 30 H 91 L Pulse Ox 06/14/21 12:38 90 L 06/14/21 12:29 93 L 06/14/21 12:00 06/14/21 10:45 06/14/21 10:30 06/14/21 10:15 06/14/21 10:01 06/14/21 10:00 06/14/21 09:59 06/14/21 09:45 06/14/21 09:30 06/14/21 09:15 06/14/21 09:00 06/14/21 08:45 06/14/21 08:30 06/14/21 08:15 06/14/21 08:01 06/14/21 08:00 06/14/21 07:59 06/14/21 07:45 06/14/21 07:30 06/14/21 07:15 06/14/21 07:00 06/14/21 06:45 06/14/21 06:30 06/14/21 06:15 06/14/21 06:01 06/14/21 06:00 06/14/21 05:59 06/14/21 05:45 06/14/21 05:34 06/14/21 05:30 06/14/21 05:15 06/14/21 05:00 06/14/21 04:45 06/14/21 04:30 06/14/21 04:15 06/14/21 04:01 06/14/21 04:00 06/14/21 03:59 06/14/21 03:45 06/14/21 03:30 06/14/21 03:15 06/14/21 03:00 - Problem List & Annotations (1) Aspiration pneumonitis SNOMED Code(s): 825663232 Code(s): J69.0 - PNEUMONITIS DUE TO INHALATION OF FOOD AND VOMIT Status: Acute Current Visit: Yes (2) Hypothyroidism SNOMED Code(s): 00152130 Code(s): E03.9 - HYPOTHYROIDISM, UNSPECIFIED Status: Acute Current Visit: Yes (3) Depressive disorder SNOMED Code(s): 60437378 Code(s): F32.9 - MAJOR DEPRESSIVE DISORDER, SINGLE EPISODE, UNSPECIFIED Status: Acute Current Visit: No (4) GERD (gastroesophageal reflux disease) SNOMED Code(s): 679013709 Code(s): K21.9 - GASTRO-ESOPHAGEAL REFLUX DISEASE WITHOUT ESOPHAGITIS Status: Acute Priority: Low Current Visit: No Qualifiers: Esophagitis presence: esophagitis presence not specified Qualified Code(s): K21.9 - Gastro-esophageal reflux disease without esophagitis - Problem List Review Problem List Initiated/Reviewed/Updated: Yes - My Orders Last 24 Hours: My Active Orders 06/14/21 Lunch Low Fat Diet [DIET] 06/14/21 12:00 Urinary Catheter Removal [RC] PER UNIT ROUTINE 06/14/21 12:35 Albuterol/Ipratropium [DuoNeb 3.0-0.5 MG/3 ML] 3 ml NEB Q4HRRT PRN 06/14/21 12:36 RT Aerosol Therapy [RC] ASDIRECTED 06/15/21 05:11 C-REACTIVE PROTEIN [CHEM] AM CBC WITH AUTO DIFF [HEME] AM CMP [COMPREHENSIVE METABOLIC PN,CMP] [CHEM] AM MAGNESIUM [CHEM] AM PHOSPHORUS [CHEM] AM 06/16/21 05:11 C-REACTIVE PROTEIN [CHEM] AM CBC WITH AUTO DIFF [HEME] AM CMP [COMPREHENSIVE METABOLIC PN,CMP] [CHEM] AM MAGNESIUM [CHEM] AM PHOSPHORUS [CHEM] AM 06/17/21 05:11 C-REACTIVE PROTEIN [CHEM] AM CBC WITH AUTO DIFF [HEME] AM CMP [COMPREHENSIVE METABOLIC PN,CMP] [CHEM] AM MAGNESIUM [CHEM] AM PHOSPHORUS [CHEM] AM - Plan Plan:: 30-year-old female who aspirated during induction for an elective laparoscopic cholecystectomy. Aspiration pneumonitis * CT demonstrates chronic consolidation within large portion of the left lung. * Currently on nasal cannula at 5 L. * Improved tachypnea although made worse by anxiety. * Continued chest and back pain likely secondary to aspiration pneumonitis, but also gallbladder disease, reflux, hiatal hernia could all be contributing to this pain. * Continue Zosyn for aspiration pneumonia * Respiratory status has significantly improved over the last 24 hours * Lactic acidosis resolved * Covid negative on June 07. Not vaccinated against COVID-19 * Repeat COVID-19 testing on June 12 was positive * White count increased to 16, likely steroid effect * Procalcitonin was 10 COVID-19 pneumonia * Patient Covid test came back positive this morning. This is consistent with the CT scan and the chest x-ray. Also, she likely have increased risk due to the aspiration pneumonia. This places the patient at higher risk for respiratory complications. * Start remdesivir, dexamethasone * Continue Zosyn * Consider Actemra or baricitinib if continuing to require noninvasive ventilation/high flow nasal cannula. * C-reactive protein decreased from 42.5 to 25. * White count has increased from 14-16, but this could be steroid result * CT angio was negative for PE Thrombocytosisimproved * Unknown significance or cause. * Could be an acute phase reactant. * This is improved from yesterday. * Continue to follow. Hypothyroidism * Home meds levothyroxine 25 mcg daily * TSH -0.529 PCOS * Home meds: Metformin Depression * Anxiety and depression are likely contributing to her tachypnea. * Ativan frequently needed to keep anxiety at bay. Plan * Downgrade to medical status from ICU * Continue Zosyn * Consult RT for pulmonary toilet * 5 days of remdesivir * 10 days of dexamethasone * Patient refused Actemra and baricitinib. * DC IV Ativan and Dilaudid * Continue trying oral Ativan and hydroxyzine for anxiety * Oxycodone 5 mg every 2 hours as needed * Follow CBC, CMP, mag, Phos, C-reactive protein, D-dimer * Get repeat procalcitonin tomorrow * Patient has severe anxiety and panic attacks. * VTE prophylaxis with Lovenox * CODE STATUS: Full code
[2021-06-14] MEDS: Acetaminophen 325 MG Tab PO PRN (20:29)
[2021-06-14] MEDS: guaiFENesin/Dextromethorphan 100-10 MG/5 ML Soln 5 ML Cup PO PRN (22:06)
[2021-06-15] MEDS: Piperacillin/Tazobactam 4.5 GM in Sodium Chloride 0.9% 100 ML IV SCH ×3 (04:56→20:47)
[2021-06-15] MEDS: hydrOXYzine HCl 50 MG Tab PO PRN (05:22)
[2021-06-15] MEDS: Albuterol/Ipratropium 3.0-0.5 MG/3 ML Neb Soln NEB PRN ×4 (06:00→22:00)
[2021-06-15] MEDS: Dexamethasone 10 MG/ML SDV IVPUSH SCH (08:24)
[2021-06-15] MEDS: Enoxaparin 40 MG/0.4 ML Syringe SUBCUT SCH (08:24)
[2021-06-15] MEDS: Levothyroxine 25 MCG Tab PO SCH (08:25)
[2021-06-15] MEDS: Ferrous Sulfate 324 MG Tab.EC PO SCH (08:26)
[2021-06-15] MEDS: guaiFENesin/Dextromethorphan 100-10 MG/5 ML Soln 5 ML Cup PO PRN ×2 (08:59→18:42)
[2021-06-15] MEDS: Ondansetron 4 MG/2 ML SDV IVPUSH PRN (09:00)
[2021-06-15] MEDS ORDERED: Potassium Chloride 10 MEQ Tab.ER PO ONE (09:59)
--- NOTE | 2021-06-15 11:23 | PCM.PN ---
- General Info Date of Service: 06/15/21 Admission Dx/Problem (Free Text): Admission Diagnosis/Problem Admission Diagnosis/Problem Aspiration pneumonitis Subjective Update: Medical service is taking over primary care of this 30-year-old female with Covid pneumonia and aspiration pneumonia following induction for a scheduled laparoscopic cholecystectomy. Ivy continues to make significant improvement. Her anxiety has improved and her oxygenation as well. She is having decreasing shortness of breath and chest pain. Functional Status: Reports: Pain Controlled - Review of Systems General: Reports: Fatigue HEENT: Reports: No Symptoms Pulmonary: Reports: Shortness of Breath, Cough Cardiovascular: Reports: No Symptoms Gastrointestinal: Reports: No Symptoms Musculoskeletal: Reports: No Symptoms - Patient Data Vitals - Most Recent: Last Vital Signs Temp 97.7 F 06/15/21 07:53 Pulse 57 L 06/15/21 08:21 Resp 16 06/15/21 07:53 BP 97/61 06/15/21 08:21 Pulse Ox 92 L 06/15/21 10:23 Weight - Most Recent: 204 lb 11.2 oz I&O - Last 24 Hours: Intake & Output 06/14/21 06/15/21 06/15/21 22:59 06:59 14:59 Intake Total 750 900 Output Total 625 Balance 125 900 Lab Results Last 24 Hours: Laboratory Results - last 24 hr 06/13/21 06/15/21 06/15/21 Range/Units 06:21 04:58 04:58 WBC 13.95 H (3.98-10.04) K/mm3 RBC 3.96 L (3.98-5.22) M/mm3 Hgb 8.9 L (11.2-15.7) gm/dl Hct 29.9 L (34.1-44.9) % MCV 75.5 L (79.4-94.8) fl MCH 22.5 L (25.6-32.2) pg MCHC 29.8 L (32.2-35.5) g/dl RDW Std Deviation 49.2 H (36.4-46.3) fL Plt Count 427 H (182-369) K/mm3 MPV 10.4 (9.4-12.3) fl Neut % (Auto) 73.6 H (34.0-71.1) % Lymph % (Auto) 17.8 L (19.3-51.7) % [place] % (Auto) 8.0 (4.7-12.5) % Eos % (Auto) 0.2 L (0.7-5.8) Baso % (Auto) 0.0 L (0.1-1.2) % Neut # (Auto) 10.26 H (1.56-6.13) K/mm3 Lymph # (Auto) 2.49 (1.18-3.74) K/mm3 [place] # (Auto) 1.11 H (0.24-0.36) K/mm3 Eos # (Auto) 0.03 L (0.04-0.36) K/mm3 Baso # (Auto) 0.00 L (0.01-0.08) K/mm3 Sodium 145 (136-145) mEq/L Potassium 3.3 L (3.5-5.1) mEq/L Chloride 107 (98-107) mEq/L Carbon Dioxide 28 (21-32) mEq/L Anion Gap 13.3 (5-15) BUN 15 (7-18) mg/dL Creatinine 0.8 (0.55-1.02) mg/dL Est Cr Clr Drug Dosing 87.99 mL/min Estimated GFR (MDRD) > 60 (>60) mL/min BUN/Creatinine Ratio 18.8 H (14-18) Glucose 108 H (70-99) mg/dL Calcium 8.6 (8.5-10.1) mg/dL Phosphorus 3.7 (2.6-4.7) mg/dL Magnesium 2.0 (1.8-2.4) mg/dL Total Bilirubin 0.3 (0.2-1.0) mg/dL AST 29 (15-37) U/L ALT 63 H (14-59) U/L Alkaline Phosphatase 51 (46-116) U/L C-Reactive Protein 14.5 H* (<1.0) mg/dL Total Protein 6.6 (6.4-8.2) g/dl Albumin 2.3 L (3.4-5.0) g/dl Globulin 4.3 gm/dL Albumin/Globulin Ratio 0.5 L (1-2) Procalcitonin 10.44 H ng/mL Med Orders - Current: Current Medications Acetaminophen (Acetaminophen 325 Mg Tab) 650 mg PO Q4H PRN PRN Reason: Fever Greater Than 101 Last Admin: 06/14/21 20:29 Dose: 650 mg Documented by: Albuterol/Ipratropium (Albuterol/Ipratropium 3.0-0.5 Mg/3 Ml Neb Soln) 3 ml NEB Q4HRRT PRN PRN Reason: sob/wheezing Last Admin: 06/15/21 09:54 Dose: 3 ml Documented by: Dexamethasone (Dexamethasone 10 Mg/Ml Sdv) 6 mg IVPUSH DAILY [facility] Stop: 06/21/21 09:01 Last Admin: 06/15/21 08:24 Dose: 6 mg Documented by: Enoxaparin Sodium (Enoxaparin 40 Mg/0.4 Ml Syringe) 40 mg SUBCUT DAILY [facility] Last Admin: 06/15/21 08:24 Dose: 40 mg Documented by: Ferrous Sulfate (Ferrous Sulfate 324 Mg Tab.Ec) 324 mg PO WITHBREAKFAST [facility] Last Admin: 06/15/21 08:26 Dose: 324 mg Documented by: Guaifenesin/Phenylephrine HCl (Guaifenesin/Dextromethorphan 100-10 Mg/5 Ml Soln 5 Ml Cup) 10 ml PO Q4H PRN PRN Reason: Cough Last Admin: 06/15/21 08:59 Dose: 10 ml Documented by: Hydroxyzine HCl (Hydroxyzine Hcl 50 Mg Tab) 50 mg PO Q4H PRN PRN Reason: Anxiety Last Admin: 06/15/21 05:22 Dose: 50 mg Documented by: Piperacillin Sod/Tazobactam (Sod 4.5 gm/ Sodium Chloride) 100 mls @ 25 mls/hr IV Q8H [facility] Last Admin: 06/15/21 04:56 Dose: 25 mls/hr Documented by: Remdesivir 100 mg/ Sodium (Chloride) 100 mls @ 100 mls/hr IV Q24H [facility] Stop: 06/16/21 14:29 Last Admin: 06/14/21 13:09 Dose: 100 mls/hr Documented by: Levothyroxine Sodium (Levothyroxine 25 Mcg Tab) 25 mcg PO ACBREAKFAST [facility] Last Admin: 06/15/21 08:25 Dose: 25 mcg Documented by: Lorazepam (Lorazepam 1 Mg Tab) 1 mg PO Q4H PRN PRN Reason: Anxiety Last Admin: 06/14/21 20:28 Dose: 1 mg Documented by: Magnesium Hydroxide (Magnesium Hydroxide 400 Mg/5 Ml Susp 30 Ml Cup) 30 ml PO ONETIME ONE Stop: 06/15/21 14:01 Ondansetron HCl (Ondansetron 4 Mg/2 Ml Sdv) 4 mg IVPUSH Q4H PRN PRN Reason: Nausea/Vomiting Last Admin: 06/15/21 09:00 Dose: 4 mg Documented by: Oxycodone HCl (Oxycodone 5 Mg Tab) 5 mg PO Q2H PRN PRN Reason: Pain (moderate 4-6) Last Admin: 06/14/21 04:16 Dose: 5 mg Documented by: Pantoprazole Sodium (Pantoprazole 40 Mg Tab.Cr) 40 mg PO BID PRN PRN Reason: Heartburn Last Admin: 06/13/21 19:59 Dose: 40 mg Documented by: Discontinued Medications Albuterol (Albuterol 0.083% 2.5 Mg/3 Ml Neb Soln) 2.5 mg NEB ONETIME ONE Stop: 06/11/21 10:31 Last Admin: 06/11/21 09:53 Dose: 2.5 mg Documented by: Albuterol/Ipratropium (Albuterol/Ipratropium 3.0-0.5 Mg/3 Ml Neb Soln) Confirm Administered Dose 3 ml .ROUTE .STK-MED ONE Stop: 06/14/21 12:34 Last Admin: 06/14/21 13:06 Dose: Not Given Documented by: Bupivacaine HCl/Epinephrine Bitart (Bupivacaine 0.5%/Epinephrine 1:200,000 50 Ml Mdv) Confirm Administered Dose 50 ml .ROUTE .STK-MED ONE Stop: 06/11/21 07:31 Cefazolin Sodium (Cefazolin 1 Gm Vial) Confirm Administered Dose 2 gm .ROUTE .STK-MED ONE Stop: 06/11/21 07:07 Dexamethasone (Dexamethasone 4 Mg/Ml 5 Ml Mdv) Confirm Administered Dose 20 mg .ROUTE .STK-MED ONE Stop: 06/11/21 07:07 Diatrizoate Meglum/Diatrizoate Sod (Diatrizoate Meglumine/Diatrizoate Sodium 37% 120 Ml Bottle) 120 ml PO ONETIME ONE Stop: 06/11/21 11:18 Last Admin: 06/12/21 20:06 Dose: Not Given Documented by: Fentanyl (Fentanyl 250 Mcg/5 Ml Sdv) Confirm Administered Dose 250 mcg .ROUTE .STK-MED ONE Stop: 06/11/21 07:07 Flumazenil (Flumazenil 0.1 Mg/Ml 5 Ml Mdv) Confirm Administered Dose 0.5 mg .ROUTE .STK-MED ONE Stop: 06/11/21 08:48 Furosemide (Furosemide 20 Mg/2 Ml Vial) Confirm Administered Dose 20 mg .ROUTE .STK-MED ONE Stop: 06/11/21 09:07 Hydromorphone HCl (Hydromorphone 0.5 Mg/0.5 Ml Syringe) 0.5 mg IVPUSH ONETIME ONE Stop: 06/11/21 17:27 Last Admin: 06/11/21 17:47 Dose: 0.5 mg Documented by: Hydromorphone HCl (Hydromorphone 0.5 Mg/0.5 Ml Syringe) 0.5 mg IVPUSH Q2H PRN PRN Reason: Pain (moderate 4-6) Last Admin: 06/13/21 16:56 Dose: 0.5 mg Documented by: Lactated Ringer's (Ringers, Lactated) 1,000 mls @ 125 mls/hr IV ASDIRECTED [facility] Stop: 06/11/21 12:00 Last Admin: 06/11/21 07:14 Dose: 125 mls/hr Documented by: Lactated Ringer's (Ringers, Lactated) Confirm Administered Dose 1,000 mls @ as directed .ROUTE .STK-MED ONE Stop: 06/11/21 07:07 Lactated Ringer's (Ringers, Lactated) 1,000 mls @ 50 mls/hr IV ASDIRECTED [facility] Last Admin: 06/11/21 17:41 Dose: 50 mls/hr Documented by: Piperacillin Sod/Tazobactam (Sod 4.5 gm/ Sodium Chloride) 100 mls @ 200 mls/hr IV ONETIME ONE Stop: 06/11/21 12:59 Last Admin: 06/11/21 12:42 Dose: 200 mls/hr Documented by: Sodium Chloride (Normal Saline) Confirm Administered Dose 500 mls @ as directed .ROUTE .STK-MED ONE Stop: 06/11/21 14:15 Last Admin: 06/11/21 17:42 Dose: 25 mls/hr Documented by: Sodium Chloride (Normal Saline) 100 mls @ 75 mls/hr IV ASDIRECTED [facility] Stop: 06/11/21 23:00 Last Admin: 06/11/21 15:55 Dose: 75 mls/hr Documented by: Lactated Ringer's (Ringers, Lactated) 1,000 mls @ 999 mls/hr IV .BOLUS ONE Stop: 06/11/21 16:30 Last Admin: 06/11/21 15:30 Dose: 999 mls/hr Documented by: Magnesium Sulfate 4 gm/ Premix 50 mls @ 12.5 mls/hr IV ONETIME ONE Stop: 06/12/21 12:59 Last Admin: 06/12/21 09:11 Dose: 12.5 mls/hr Documented by: Dextrose/Sodium Chloride (Dextrose 5%-1/2 Ns) 1,000 mls @ 50 mls/hr IV ASDIRECTED [facility] Last Admin: 06/12/21 11:41 Dose: 50 mls/hr Documented by: Remdesivir 200 mg/ Sodium (Chloride) 250 mls @ 250 mls/hr IV ONETIME ONE Stop: 06/12/21 14:29 Last Admin: 06/12/21 13:27 Dose: 250 mls/hr Documented by: Iopamidol (Iopamidol 612 Mg/Ml 100 Ml Bottle) 100 ml IVPUSH ONETIME ONE Stop: 06/11/21 11:18 Last Admin: 06/12/21 20:06 Dose: Not Given Documented by: Iopamidol (Iopamidol 755 Mg/Ml 100 Ml Bottle) 100 ml IVPUSH ONETIME ONE Stop: 06/11/21 14:57 Last Admin: 06/11/21 15:55 Dose: 100 ml Documented by: Ketorolac Tromethamine (Ketorolac 30 Mg/Ml Sdv) Confirm Administered Dose 30 mg .ROUTE .STK-MED ONE Stop: 06/11/21 07:07 Lidocaine HCl (Lidocaine 1% 10 Ml Mdv) Confirm Administered Dose 10 ml .ROUTE .STK-MED ONE Stop: 06/11/21 17:25 Last Admin: 06/11/21 18:14 Dose: Not Given Documented by: Lidocaine/Sodium Bicarbonate (Lidocaine 1%/Sod Bicarbonate In Ns 8.4% 1 Ml Syringe) 0.25 ml IDERM ONETIME PRN PRN Reason: Prior to IV Start Stop: 06/11/21 18:00 Last Admin: 06/11/21 07:14 Dose: 0.25 ml Documented by: Lorazepam (Lorazepam 2 Mg/Ml Sdv) 1 mg IVPUSH ONETIME ONE Stop: 06/11/21 17:27 Last Admin: 06/11/21 17:34 Dose: 1 mg Documented by: Lorazepam (Lorazepam 2 Mg/Ml Sdv) 1 mg IVPUSH Q2H PRN PRN Reason: Anxiety Last Admin: 06/14/21 12:49 Dose: 1 mg Documented by: Magnesium Oxide (Magnesium Oxide 400 Mg Tab) 400 mg PO BID [facility]OLIE Stop: 06/13/21 21:01 Last Admin: 06/13/21 19:59 Dose: 400 mg Documented by: Midazolam HCl (Midazolam 1 Mg/Ml 2 Ml Sdv) Confirm Administered Dose 2 mg .ROUTE .STK-MED ONE Stop: 06/11/21 07:07 Midazolam HCl (Midazolam 1 Mg/Ml 2 Ml Sdv) 0.5 mg IVPUSH ONETIME PRN PRN Reason: Anxiety Stop: 06/11/21 13:00 Last Admin: 06/11/21 11:18 Dose: 0.5 mg Documented by: Midazolam HCl (Midazolam 1 Mg/Ml 2 Ml Sdv) 0.5 mg IVPUSH ONETIME PRN PRN Reason: Anxiety Stop: 06/11/21 23:00 Last Admin: 06/11/21 12:01 Dose: 0.5 mg Documented by: Naloxone HCl (Naloxone 0.4 Mg/Ml Sdv) Confirm Administered Dose 0.4 mg .ROUTE .STK-MED ONE Stop: 06/11/21 08:48 Ondansetron HCl (Ondansetron 4 Mg/2 Ml Sdv) Confirm Administered Dose 4 mg .ROUTE .STK-MED ONE Stop: 06/11/21 07:07 Ondansetron HCl (Ondansetron 4 Mg/2 Ml Sdv) 4 mg IVPUSH ONETIME PRN PRN Reason: Nausea/Vomiting Stop: 06/11/21 23:00 Last Admin: 06/11/21 11:24 Dose: 4 mg Documented by: Potassium Chloride (Potassium Chloride 10 Meq Tab.Er) 40 meq PO ONETIME ONE Stop: 06/15/21 10:00 Last Admin: 06/15/21 10:20 Dose: 40 meq Documented by: Propofol (Propofol 200 Mg/20 Ml Sdv) Confirm Administered Dose 200 mg .ROUTE .STK-MED ONE Stop: 06/11/21 07:07 Rocuronium Eure (Rocuronium 50 Mg/5 Ml Vial) Confirm Administered Dose 50 mg .ROUTE .STK-MED ONE Stop: 06/11/21 07:07 Sodium Chloride (Sodium Chloride 0.9% 10 Ml Syringe) 10 ml FLUSH ASDIRECTED PRN PRN Reason: Keep Vein Open Stop: 06/11/21 18:00 Sodium Chloride (Sodium Chloride 0.9% 10 Ml Syringe) 10 ml FLUSH ONETIME PRN PRN Reason: IV FLUSH Stop: 06/11/21 13:00 Sodium Chloride (Sodium Chloride 0.9% 10 Ml Syringe) 10 ml FLUSH ONETIME PRN PRN Reason: IV FLUSH Stop: 06/11/21 23:00 - Exam Quality Assessment: Supplemental Oxygen Urinary Catheter Total Time: 3Days 3Hours General: Alert, Oriented HEENT: Pupils Equal, Mucous Membr. Moist/[place] Neck: Supple Lungs: Crackles (Bibasilar left worse than right). No: Normal Respiratory Effort (Mildly increased) Cardiovascular: Regular Rate, Regular Rhythm GI/Abdominal Exam: Normal Bowel Sounds, Soft, Non-Tender, No Distention Extremities: Normal Inspection, Normal Range of Motion, Non-Tender, No Pedal Edema, Normal Capillary Refill Neurological: No New Focal Deficit - Patient Data Lab Results Last 24 hrs: Laboratory Results - last 24 hr 06/13/21 06/15/21 06/15/21 Range/Units 06:21 04:58 04:58 WBC 13.95 H (3.98-10.04) K/mm3 RBC 3.96 L (3.98-5.22) M/mm3 Hgb 8.9 L (11.2-15.7) gm/dl Hct 29.9 L (34.1-44.9) % MCV 75.5 L (79.4-94.8) fl MCH 22.5 L (25.6-32.2) pg MCHC 29.8 L (32.2-35.5) g/dl RDW Std Deviation 49.2 H (36.4-46.3) fL Plt Count 427 H (182-369) K/mm3 MPV 10.4 (9.4-12.3) fl Neut % (Auto) 73.6 H (34.0-71.1) % Lymph % (Auto) 17.8 L (19.3-51.7) % [place] % (Auto) 8.0 (4.7-12.5) % Eos % (Auto) 0.2 L (0.7-5.8) Baso % (Auto) 0.0 L (0.1-1.2) % Neut # (Auto) 10.26 H (1.56-6.13) K/mm3 Lymph # (Auto) 2.49 (1.18-3.74) K/mm3 [place] # (Auto) 1.11 H (0.24-0.36) K/mm3 Eos # (Auto) 0.03 L (0.04-0.36) K/mm3 Baso # (Auto) 0.00 L (0.01-0.08) K/mm3 Sodium 145 (136-145) mEq/L Potassium 3.3 L (3.5-5.1) mEq/L Chloride 107 (98-107) mEq/L Carbon Dioxide 28 (21-32) mEq/L Anion Gap 13.3 (5-15) BUN 15 (7-18) mg/dL Creatinine 0.8 (0.55-1.02) mg/dL Est Cr Clr Drug Dosing 87.99 mL/min Estimated GFR (MDRD) > 60 (>60) mL/min BUN/Creatinine Ratio 18.8 H (14-18) Glucose 108 H (70-99) mg/dL Calcium 8.6 (8.5-10.1) mg/dL Phosphorus 3.7 (2.6-4.7) mg/dL Magnesium 2.0 (1.8-2.4) mg/dL Total Bilirubin 0.3 (0.2-1.0) mg/dL AST 29 (15-37) U/L ALT 63 H (14-59) U/L Alkaline Phosphatase 51 (46-116) U/L C-Reactive Protein 14.5 H* (<1.0) mg/dL Total Protein 6.6 (6.4-8.2) g/dl Albumin 2.3 L (3.4-5.0) g/dl Globulin 4.3 gm/dL Albumin/Globulin Ratio 0.5 L (1-2) Procalcitonin 10.44 H ng/mL Result Diagrams: 06/15/21 04:58 06/15/21 04:58 Sepsis Event Note - Evaluation Sepsis Screening Result: Sepsis Risk - Focused Exam Vital Signs: Vital Signs Temp Pulse Resp BP Pulse Ox Pulse Ox 06/15/21 10:23 92 L 06/15/21 09:55 95 06/15/21 08:21 57 L 97/61 99 06/15/21 07:53 97.7 F 58 L 16 90/55 L 96 06/15/21 06:00 94 L 06/15/21 04:55 97.5 F 54 L 16 110/53 L 91 L 06/15/21 01:47 98.8 F 06/15/21 00:35 98.2 F 47 L 22 H 112/58 L 94 L - Problem List & Annotations (1) Aspiration pneumonitis SNOMED Code(s): 987300605 Code(s): J69.0 - PNEUMONITIS DUE TO INHALATION OF FOOD AND VOMIT Status: Acute Current Visit: Yes (2) Hypothyroidism SNOMED Code(s): 00396939 Code(s): E03.9 - HYPOTHYROIDISM, UNSPECIFIED Status: Acute Current Visit: Yes (3) Depressive disorder SNOMED Code(s): 98152036 Code(s): F32.9 - MAJOR DEPRESSIVE DISORDER, SINGLE EPISODE, UNSPECIFIED Status: Acute Current Visit: No (4) GERD (gastroesophageal reflux disease) SNOMED Code(s): 010841885 Code(s): K21.9 - GASTRO-ESOPHAGEAL REFLUX DISEASE WITHOUT ESOPHAGITIS Status: Acute Priority: Low Current Visit: No Qualifiers: Esophagitis presence: esophagitis presence not specified Qualified Code(s): K21.9 - Gastro-esophageal reflux disease without esophagitis - Problem List Review Problem List Initiated/Reviewed/Updated: Yes - My Orders Last 24 Hours: My Active Orders 06/14/21 Lunch Low Fat Diet [DIET] 06/14/21 12:35 Albuterol/Ipratropium [DuoNeb 3.0-0.5 MG/3 ML] 3 ml NEB Q4HRRT PRN 06/15/21 05:06 Ondansetron [Zofran] 4 mg IVPUSH Q4H PRN 06/15/21 05:11 PROCALCITONIN [REF] Routine 06/15/21 07:00 Ferrous Sulfate 324 mg PO WITHBREAKFAST 06/16/21 05:11 C-REACTIVE PROTEIN [CHEM] AM CBC WITH AUTO DIFF [HEME] AM CMP [COMPREHENSIVE METABOLIC PN,CMP] [CHEM] AM MAGNESIUM [CHEM] AM PHOSPHORUS [CHEM] AM 06/17/21 05:11 C-REACTIVE PROTEIN [CHEM] AM CBC WITH AUTO DIFF [HEME] AM CMP [COMPREHENSIVE METABOLIC PN,CMP] [CHEM] AM MAGNESIUM [CHEM] AM PHOSPHORUS [CHEM] AM - Plan Plan:: 30-year-old female who aspirated during induction for an elective laparoscopic cholecystectomy. Aspiration pneumonitisimproved * CT demonstrates chronic consolidation within large portion of the left lung. * Currently on nasal cannula at 3 L. Much improved * Improved tachypnea although made worse by anxiety. * Continued chest and back pain likely secondary to aspiration pneumonitis, but also gallbladder disease, reflux, hiatal hernia could all be contributing to this pain. * Continue Zosyn for aspiration pneumonia * Respiratory status has significantly improved over the last 24 hours * Lactic acidosis resolved * Covid negative on June 07. Not vaccinated against COVID-19 * Repeat COVID-19 testing on June 12 was positive * White count increased to 16, likely steroid effect * Procalcitonin was 10 COVID-19 pneumoniaimproved * Currently on remdesivir, dexamethasone * Continue Zosyn * Refused Actemra or baricitinib. * C-reactive protein decreased from 42.5-->25--> 14.5. * White count stable at 14 * CT angio was negative for PE Thrombocytosisimproved * Unknown significance or cause. * Could be an acute phase reactant. * Continues to improve * Continue to follow. Hypothyroidism * Home meds levothyroxine 25 mcg daily * TSH -0.529 PCOS * Home meds: Metformin - held Depression * Anxiety and depression are likely contributing to her tachypnea, but improving. * Less Ativan needed. Plan * Medical floor * Continue Zosyn * Consult RT for pulmonary toilet * 5 days of remdesivir * Up to 10 days of dexamethasone * Patient refused Actemra and baricitinib. * DC IV Ativan and Dilaudid * Continue oral Ativan and hydroxyzine for anxiety * Oxycodone 5 mg every 2 hours as needed * Follow CBC, CMP, mag, Phos, C-reactive protein, D-dimer * Patient has severe anxiety and panic attacks. * VTE prophylaxis with Lovenox * CODE STATUS: Full code
[2021-06-15] MEDS: REMDESIVIR 100 MG in Sodium Chloride 0.9% 100 ML IV SCH (13:06)
[2021-06-15] MEDS ORDERED: Magnesium Hydroxide 400 MG/5 ML Susp 30 ML Cup PO ONE ×2 (14:00→16:55)
[2021-06-15] MEDS: Pantoprazole 40 MG Tab.CR PO PRN (17:22)
[2021-06-15] MEDS: Acetaminophen 325 MG Tab PO PRN (17:23)
[2021-06-15] MEDS: LORazepam 1 MG Tab PO PRN (20:56)
[2021-06-16] MEDS: guaiFENesin/Dextromethorphan 100-10 MG/5 ML Soln 5 ML Cup PO PRN ×2 (04:27→09:07)
[2021-06-16] MEDS: Piperacillin/Tazobactam 4.5 GM in Sodium Chloride 0.9% 100 ML IV SCH ×3 (05:30→21:06)
[2021-06-16] MEDS: Levothyroxine 25 MCG Tab PO SCH (05:32)
[2021-06-16] MEDS: Ferrous Sulfate 324 MG Tab.EC PO SCH ×2 (05:32→06:10)
[2021-06-16] MEDS ORDERED: Potassium Chloride 20 MEQ Tab.ER PO ONE (08:09)
[2021-06-16] MEDS: Enoxaparin 40 MG/0.4 ML Syringe SUBCUT SCH (08:52)
[2021-06-16] MEDS: Dexamethasone 10 MG/ML SDV IVPUSH SCH (08:53)
[2021-06-16] MEDS: Ondansetron 4 MG/2 ML SDV IVPUSH PRN (09:04)
[2021-06-16] MEDS: oxyCODONE 5 MG Tab PO PRN ×2 (11:32→22:52)
[2021-06-16] MEDS: Polyethylene Glycol 3350 Powder 17 GM Packet PO SCH (12:37)
[2021-06-16] MEDS: REMDESIVIR 100 MG in Sodium Chloride 0.9% 100 ML IV SCH (12:38)
--- NOTE | 2021-06-16 14:30 | PCM.PN ---
- General Info Date of Service: 06/16/21 Admission Dx/Problem (Free Text): Admission Diagnosis/Problem Admission Diagnosis/Problem Aspiration pneumonitis Subjective Update: 30-year-old female with Covid pneumonia and aspiration pneumonia following induction for a scheduled laparoscopic cholecystectomy. Oxygenation continues to improve. Anxiety has also improved. White count has dropped to 12,600 and CRP is down to 5.7. Procalcitonin yesterday was 4.6. She states she is feeling much better and her breathing is better. She does complain of some right upper chest pain when she coughs. Functional Status: Reports: Pain Controlled - Review of Systems General: Reports: Fatigue HEENT: Reports: No Symptoms Pulmonary: Reports: Shortness of Breath, Cough Cardiovascular: Reports: Chest Pain (Right chest wall) Gastrointestinal: Reports: No Symptoms Musculoskeletal: Reports: No Symptoms - Patient Data Vitals - Most Recent: Last Vital Signs Temp 97.9 F 06/16/21 11:42 Pulse 63 06/16/21 11:42 Resp 20 06/16/21 11:42 BP 107/72 06/16/21 11:42 Pulse Ox 94 L 06/16/21 11:42 Weight - Most Recent: 204 lb 11.2 oz I&O - Last 24 Hours: Intake & Output 06/15/21 06/16/21 06/16/21 22:59 06:59 14:59 Intake Total 2760 800 Balance 2760 800 Lab Results Last 24 Hours: Laboratory Results - last 24 hr 06/15/21 06/16/21 06/16/21 Range/Units 04:58 06:06 06:06 WBC 12.60 H (3.98-10.04) K/mm3 RBC 3.96 L (3.98-5.22) M/mm3 Hgb 8.7 L (11.2-15.7) gm/dl Hct 30.0 L (34.1-44.9) % MCV 75.8 L (79.4-94.8) fl MCH 22.0 L (25.6-32.2) pg MCHC 29.0 L (32.2-35.5) g/dl RDW Std Deviation 49.7 H (36.4-46.3) fL Plt Count 391 H (182-369) K/mm3 MPV 10.8 (9.4-12.3) fl Neut % (Auto) 59.7 (34.0-71.1) % Lymph % (Auto) 28.3 (19.3-51.7) % [place] % (Auto) 9.6 (4.7-12.5) % Eos % (Auto) 1.2 (0.7-5.8) Baso % (Auto) 0.1 (0.1-1.2) % Neut # (Auto) 7.53 H (1.56-6.13) K/mm3 Lymph # (Auto) 3.56 (1.18-3.74) K/mm3 [place] # (Auto) 1.21 H (0.24-0.36) K/mm3 Eos # (Auto) 0.15 (0.04-0.36) K/mm3 Baso # (Auto) 0.01 (0.01-0.08) K/mm3 Manual Slide Review Abnormal smear Sodium 141 (136-145) mEq/L Potassium 3.5 (3.5-5.1) mEq/L Chloride 107 (98-107) mEq/L Carbon Dioxide 26 (21-32) mEq/L Anion Gap 11.5 (5-15) BUN 15 (7-18) mg/dL Creatinine 0.7 (0.55-1.02) mg/dL Est Cr Clr Drug Dosing 100.55 mL/min Estimated GFR (MDRD) > 60 (>60) mL/min BUN/Creatinine Ratio 21.4 H (14-18) Glucose 102 H (70-99) mg/dL Calcium 8.4 L (8.5-10.1) mg/dL Phosphorus 3.0 (2.6-4.7) mg/dL Magnesium 1.8 (1.8-2.4) mg/dL Total Bilirubin 0.3 (0.2-1.0) mg/dL AST 21 (15-37) U/L ALT 59 (14-59) U/L Alkaline Phosphatase 42 L (46-116) U/L C-Reactive Protein 5.7 H* (<1.0) mg/dL Total Protein 6.4 (6.4-8.2) g/dl Albumin 2.2 L (3.4-5.0) g/dl Globulin 4.2 gm/dL Albumin/Globulin Ratio 0.5 L (1-2) Procalcitonin 4.92 H ng/mL Med Orders - Current: Current Medications Acetaminophen (Acetaminophen 325 Mg Tab) 650 mg PO Q4H PRN PRN Reason: Fever Greater Than 101 Last Admin: 06/15/21 17:23 Dose: 650 mg Documented by: Albuterol/Ipratropium (Albuterol/Ipratropium 3.0-0.5 Mg/3 Ml Neb Soln) 3 ml NEB Q4HRRT PRN PRN Reason: sob/wheezing Last Admin: 06/15/21 22:00 Dose: 3 ml Documented by: Dexamethasone (Dexamethasone 10 Mg/Ml Sdv) 6 mg IVPUSH DAILY [facility] Stop: 06/21/21 09:01 Last Admin: 06/16/21 08:53 Dose: 6 mg Documented by: Enoxaparin Sodium (Enoxaparin 40 Mg/0.4 Ml Syringe) 40 mg SUBCUT DAILY [facility] Last Admin: 06/16/21 08:52 Dose: 40 mg Documented by: Ferrous Sulfate (Ferrous Sulfate 324 Mg Tab.Ec) 324 mg PO WITHBREAKFAST [facility] Last Admin: 06/16/21 06:10 Dose: Not Given Documented by: Guaifenesin/Phenylephrine HCl (Guaifenesin/Dextromethorphan 100-10 Mg/5 Ml Soln 5 Ml Cup) 10 ml PO Q4H PRN PRN Reason: Cough Last Admin: 06/16/21 09:07 Dose: 10 ml Documented by: Hydroxyzine HCl (Hydroxyzine Hcl 50 Mg Tab) 50 mg PO Q4H PRN PRN Reason: Anxiety Last Admin: 06/15/21 05:22 Dose: 50 mg Documented by: Piperacillin Sod/Tazobactam (Sod 4.5 gm/ Sodium Chloride) 100 mls @ 25 mls/hr IV Q8H JOLIE Last Admin: 06/16/21 12:36 Dose: 25 mls/hr Documented by: Levothyroxine Sodium (Levothyroxine 25 Mcg Tab) 25 mcg PO ACBREAKFAST [facility] Last Admin: 06/16/21 05:32 Dose: 25 mcg Documented by: Lorazepam (Lorazepam 1 Mg Tab) 1 mg PO Q4H PRN PRN Reason: Anxiety Last Admin: 06/15/21 20:56 Dose: 1 mg Documented by: Ondansetron HCl (Ondansetron 4 Mg/2 Ml Sdv) 4 mg IVPUSH Q4H PRN PRN Reason: Nausea/Vomiting Last Admin: 06/16/21 09:04 Dose: 4 mg Documented by: Oxycodone HCl (Oxycodone 5 Mg Tab) 5 mg PO Q2H PRN PRN Reason: Pain (moderate 4-6) Last Admin: 06/16/21 11:32 Dose: 5 mg Documented by: Pantoprazole Sodium (Pantoprazole 40 Mg Tab.Cr) 40 mg PO BID PRN PRN Reason: Heartburn Last Admin: 06/15/21 17:22 Dose: 40 mg Documented by: Polyethylene Glycol (Polyethylene Glycol 3350 Powder 17 Gm Packet) 17 gm PO DAILY JOLIE Last Admin: 06/16/21 12:37 Dose: 17 gm Documented by: Discontinued Medications Albuterol (Albuterol 0.083% 2.5 Mg/3 Ml Neb Soln) 2.5 mg NEB ONETIME ONE Stop: 06/11/21 10:31 Last Admin: 06/11/21 09:53 Dose: 2.5 mg Documented by: Albuterol/Ipratropium (Albuterol/Ipratropium 3.0-0.5 Mg/3 Ml Neb Soln) Confirm Administered Dose 3 ml .ROUTE .STK-MED ONE Stop: 06/14/21 12:34 Last Admin: 06/14/21 13:06 Dose: Not Given Documented by: Bupivacaine HCl/Epinephrine Bitart (Bupivacaine 0.5%/Epinephrine 1:200,000 50 Ml Mdv) Confirm Administered Dose 50 ml .ROUTE .STK-MED ONE Stop: 06/11/21 07:31 Cefazolin Sodium (Cefazolin 1 Gm Vial) Confirm Administered Dose 2 gm .ROUTE .STK-MED ONE Stop: 06/11/21 07:07 Dexamethasone (Dexamethasone 4 Mg/Ml 5 Ml Mdv) Confirm Administered Dose 20 mg .ROUTE .STK-MED ONE Stop: 06/11/21 07:07 Diatrizoate Meglum/Diatrizoate Sod (Diatrizoate Meglumine/Diatrizoate Sodium 37% 120 Ml Bottle) 120 ml PO ONETIME ONE Stop: 06/11/21 11:18 Last Admin: 06/12/21 20:06 Dose: Not Given Documented by: Fentanyl (Fentanyl 250 Mcg/5 Ml Sdv) Confirm Administered Dose 250 mcg .ROUTE .STK-MED ONE Stop: 06/11/21 07:07 Flumazenil (Flumazenil 0.1 Mg/Ml 5 Ml Mdv) Confirm Administered Dose 0.5 mg .ROUTE .STK-MED ONE Stop: 06/11/21 08:48 Furosemide (Furosemide 20 Mg/2 Ml Vial) Confirm Administered Dose 20 mg .ROUTE .STK-MED ONE Stop: 06/11/21 09:07 Hydromorphone HCl (Hydromorphone 0.5 Mg/0.5 Ml Syringe) 0.5 mg IVPUSH ONETIME ONE Stop: 06/11/21 17:27 Last Admin: 06/11/21 17:47 Dose: 0.5 mg Documented by: Hydromorphone HCl (Hydromorphone 0.5 Mg/0.5 Ml Syringe) 0.5 mg IVPUSH Q2H PRN PRN Reason: Pain (moderate 4-6) Last Admin: 06/13/21 16:56 Dose: 0.5 mg Documented by: Lactated Ringer's (Ringers, Lactated) 1,000 mls @ 125 mls/hr IV ASDIRECTED [facility] Stop: 06/11/21 12:00 Last Admin: 06/11/21 07:14 Dose: 125 mls/hr Documented by: Lactated Ringer's (Ringers, Lactated) Confirm Administered Dose 1,000 mls @ as directed .ROUTE .STK-MED ONE Stop: 06/11/21 07:07 Lactated Ringer's (Ringers, Lactated) 1,000 mls @ 50 mls/hr IV ASDIRECTED [facility] Last Admin: 06/11/21 17:41 Dose: 50 mls/hr Documented by: Piperacillin Sod/Tazobactam (Sod 4.5 gm/ Sodium Chloride) 100 mls @ 200 mls/hr IV ONETIME ONE Stop: 06/11/21 12:59 Last Admin: 06/11/21 12:42 Dose: 200 mls/hr Documented by: Sodium Chloride (Normal Saline) Confirm Administered Dose 500 mls @ as directed .ROUTE .STK-MED ONE Stop: 06/11/21 14:15 Last Admin: 06/11/21 17:42 Dose: 25 mls/hr Documented by: Sodium Chloride (Normal Saline) 100 mls @ 75 mls/hr IV ASDIRECTED [facility] Stop: 06/11/21 23:00 Last Admin: 06/11/21 15:55 Dose: 75 mls/hr Documented by: Lactated Ringer's (Ringers, Lactated) 1,000 mls @ 999 mls/hr IV .BOLUS ONE Stop: 06/11/21 16:30 Last Admin: 06/11/21 15:30 Dose: 999 mls/hr Documented by: Magnesium Sulfate 4 gm/ Premix 50 mls @ 12.5 mls/hr IV ONETIME ONE Stop: 06/12/21 12:59 Last Admin: 06/12/21 09:11 Dose: 12.5 mls/hr Documented by: Dextrose/Sodium Chloride (Dextrose 5%-1/2 Ns) 1,000 mls @ 50 mls/hr IV ASDIR ECTED [facility] Last Admin: 06/12/21 11:41 Dose: 50 mls/hr Documented by: Remdesivir 200 mg/ Sodium (Chloride) 250 mls @ 250 mls/hr IV ONETIME ONE Stop: 06/12/21 14:29 Last Admin: 06/12/21 13:27 Dose: 250 mls/hr Documented by: Remdesivir 100 mg/ Sodium (Chloride) 100 mls @ 100 mls/hr IV Q24H [facility] Stop: 06/16/21 14:29 Last Admin: 06/16/21 12:38 Dose: 100 mls/hr Documented by: Iopamidol (Iopamidol 612 Mg/Ml 100 Ml Bottle) 100 ml IVPUSH ONETIME ONE Stop: 06/11/21 11:18 Last Admin: 06/12/21 20:06 Dose: Not Given Documented by: Iopamidol (Iopamidol 755 Mg/Ml 100 Ml Bottle) 100 ml IVPUSH ONETIME ONE Stop: 06/11/21 14:57 Last Admin: 06/11/21 15:55 Dose: 100 ml Documented by: Ketorolac Tromethamine (Ketorolac 30 Mg/Ml Sdv) Confirm Administered Dose 30 mg .ROUTE .STK-MED ONE Stop: 06/11/21 07:07 Lidocaine HCl (Lidocaine 1% 10 Ml Mdv) Confirm Administered Dose 10 ml .ROUTE .S TK-MED ONE Stop: 06/11/21 17:25 Last Admin: 06/11/21 18:14 Dose: Not Given Documented by: Lidocaine/Sodium Bicarbonate (Lidocaine 1%/Sod Bicarbonate In Ns 8.4% 1 Ml Syringe) 0.25 ml IDERM ONETIME PRN PRN Reason: Prior to IV Start Stop: 06/11/21 18:00 Last Admin: 06/11/21 07:14 Dose: 0.25 ml Documented by: Lorazepam (Lorazepam 2 Mg/Ml Sdv) 1 mg IVPUSH ONETIME ONE Stop: 06/11/21 17:27 Last Admin: 06/11/21 17:34 Dose: 1 mg Documented by: Lorazepam (Lorazepam 2 Mg/Ml Sdv) 1 mg IVPUSH Q2H PRN PRN Reason: Anxiety Last Admin: 06/14/21 12:49 Dose: 1 mg Documented by: Magnesium Hydroxide (Magnesium Hydroxide 400 Mg/5 Ml Susp 30 Ml Cup) 30 ml PO ONETIME ONE Stop: 06/15/21 14:01 Last Admin: 06/15/21 13:01 Dose: Not Given Documented by: Magnesium Hydroxide (Magnesium Hydroxide 400 Mg/5 Ml Susp 30 Ml Cup) 30 ml PO ONETIME ONE Stop: 06/15/21 16:56 Last Admin: 06/15/21 17:26 Dose: 30 ml Documented by: Magnesium Oxide (Magnesium Oxide 400 Mg Tab) 400 mg PO BID JOLIE Stop: 06/13/21 21:01 Last Admin: 06/13/21 19:59 Dose: 400 mg Documented by: Midazolam HCl (Midazolam 1 Mg/Ml 2 Ml Sdv) Confirm Administered Dose 2 mg .ROUTE .STK-MED ONE Stop: 06/11/21 07:07 Midazolam HCl (Midazolam 1 Mg/Ml 2 Ml Sdv) 0.5 mg IVPUSH ONETIME PRN PRN Reason: Anxiety Stop: 06/11/21 13:00 Last Admin: 06/11/21 11:18 Dose: 0.5 mg Documented by: Midazolam HCl (Midazolam 1 Mg/Ml 2 Ml Sdv) 0.5 mg IVPUSH ONETIME PRN PRN Reason: Anxiety Stop: 06/11/21 23:00 Last Admin: 06/11/21 12:01 Dose: 0.5 mg Documented by: Naloxone HCl (Naloxone 0.4 Mg/Ml Sdv) Confirm Administered Dose 0.4 mg .ROUTE .STK-MED ONE Stop: 06/11/21 08:48 Ondansetron HCl (Ondansetron 4 Mg/2 Ml Sdv) Confirm Administered Dose 4 mg .ROUTE .STK-MED ONE Stop: 06/11/21 07:07 Ondansetron HCl (Ondansetron 4 Mg/2 Ml Sdv) 4 mg IVPUSH ONETIME PRN PRN Reason: Nausea/Vomiting Stop: 06/11/21 23:00 Last Admin: 06/11/21 11:24 Dose: 4 mg Documented by: Potassium Chloride (Potassium Chloride 10 Meq Tab.Er) 40 meq PO ONETIME ONE Stop: 06/15/21 10:00 Last Admin: 06/15/21 10:20 Dose: 40 meq Documented by: Potassium Chloride (Potassium Chloride 20 Meq Tab.Er) 40 meq PO ONETIME ONE Stop: 06/16/21 08:10 Last Admin: 06/16/21 08:52 Dose: 40 meq Documented by: Propofol (Propofol 200 Mg/20 Ml Sdv) Confirm Administered Dose 200 mg .ROUTE .STK-MED ONE Stop: 06/11/21 07:07 Rocuronium [place] (Rocuronium 50 Mg/5 Ml Vial) Confirm Administered Dose 50 mg .ROUTE .STK-MED ONE Stop: 06/11/21 07:07 Sodium Chloride (Sodium Chloride 0.9% 10 Ml Syringe) 10 ml FLUSH ASDIRECTED PRN PRN Reason: Keep Vein Open Stop: 06/11/21 18:00 Sodium Chloride (Sodium Chloride 0.9% 10 Ml Syringe) 10 ml FLUSH ONETIME PRN PRN Reason: IV FLUSH Stop: 06/11/21 13:00 Sodium Chloride (Sodium Chloride 0.9% 10 Ml Syringe) 10 ml FLUSH ONETIME PRN PRN Reason: IV FLUSH Stop: 06/11/21 23:00 - Exam Quality Assessment: Supplemental Oxygen Urinary Catheter Total Time: 3Days 3Hours General: Alert, Oriented HEENT: Pupils Equal, Mucous Membr. Moist/[place] Neck: Supple Lungs: Normal Respiratory Effort, Crackles, Rhonchi (Left lower and middle lobe) Cardiovascular: Regular Rate, Regular Rhythm GI/Abdominal Exam: Normal Bowel Sounds, Soft, Non-Tender, No Distention - Patient Data Lab Results Last 24 hrs: Laboratory Results - last 24 hr 10/02/21 10/03/21 10/03/21 Range/Units 04:58 06:06 06:06 WBC 12.60 H (3.98-10.04) K/mm3 RBC 3.96 L (3.98-5.22) M/mm3 Hgb 8.7 L (11.2-15.7) gm/dl Hct 30.0 L (34.1-44.9) % MCV 75.8 L (79.4-94.8) fl MCH 22.0 L (25.6-32.2) pg MCHC 29.0 L (32.2-35.5) g/dl RDW Std Deviation 49.7 H (36.4-46.3) fL Plt Count 391 H (182-369) K/mm3 MPV 10.8 (9.4-12.3) fl Neut % (Auto) 59.7 (34.0-71.1) % Lymph % (Auto) 28.3 (19.3-51.7) % [place] % (Auto) 9.6 (4.7-12.5) % Eos % (Auto) 1.2 (0.7-5.8) Baso % (Auto) 0.1 (0.1-1.2) % Neut # (Auto) 7.53 H (1.56-6.13) K/mm3 Lymph # (Auto) 3.56 (1.18-3.74) K/mm3 [place] # (Auto) 1.21 H (0.24-0.36) K/mm3 Eos # (Auto) 0.15 (0.04-0.36) K/mm3 Baso # (Auto) 0.01 (0.01-0.08) K/mm3 Manual Slide Review Abnormal smear Sodium 141 (136-145) mEq/L Potassium 3.5 (3.5-5.1) mEq/L Chloride 107 (98-107) mEq/L Carbon Dioxide 26 (21-32) mEq/L Anion Gap 11.5 (5-15) BUN 15 (7-18) mg/dL Creatinine 0.7 (0.55-1.02) mg/dL Est Cr Clr Drug Dosing 100.55 mL/min Estimated GFR (MDRD) > 60 (>60) mL/min BUN/Creatinine Ratio 21.4 H (14-18) Glucose 102 H (70-99) mg/dL Calcium 8.4 L (8.5-10.1) mg/dL Phosphorus 3.0 (2.6-4.7) mg/dL Magnesium 1.8 (1.8-2.4) mg/dL Total Bilirubin 0.3 (0.2-1.0) mg/dL AST 21 (15-37) U/L ALT 59 (14-59) U/L Alkaline Phosphatase 42 L (46-116) U/L C-Reactive Protein 5.7 H* (<1.0) mg/dL Total Protein 6.4 (6.4-8.2) g/dl Albumin 2.2 L (3.4-5.0) g/dl Globulin 4.2 gm/dL Albumin/Globulin Ratio 0.5 L (1-2) Procalcitonin 4.92 H ng/mL Result Diagrams: 06/16/21 06:06 06/16/21 06:06 Sepsis Event Note - Evaluation Sepsis Screening Result: Sepsis Risk - Focused Exam Vital Signs: Vital Signs Temp Pulse Resp BP Pulse Ox 06/16/21 11:42 97.9 F 63 20 107/72 94 L 06/16/21 08:46 98.6 F 55 L 22 H 102/62 93 L 06/16/21 05:35 98.2 F 88 20 109/40 L 100 - Problem List & Annotations (1) Aspiration pneumonitis SNOMED Code(s): 742838700 Code(s): J69.0 - PNEUMONITIS DUE TO INHALATION OF FOOD AND VOMIT Status: Acute Current Visit: Yes (2) Hypothyroidism SNOMED Code(s): 94277857 Code(s): E03.9 - HYPOTHYROIDISM, UNSPECIFIED Status: Acute Current Visit: Yes (3) Depressive disorder SNOMED Code(s): 92296421 Code(s): F32.9 - MAJOR DEPRESSIVE DISORDER, SINGLE EPISODE, UNSPECIFIED Status: Acute Current Visit: No (4) GERD (gastroesophageal reflux disease) SNOMED Code(s): 812989683 Code(s): K21.9 - GASTRO-ESOPHAGEAL REFLUX DISEASE WITHOUT ESOPHAGITIS Stat us: Acute Priority: Low Current Visit: No Qualifiers: Esophagitis presence: esophagitis presence not specified Qualified Code(s): K21.9 - Gastro-esophageal reflux disease without esophagitis - Problem List Review Problem List Initiated/Reviewed/Updated: Yes - My Orders Last 24 Hours: My Active Orders 06/16/21 12:30 polyethylene glycoL 3350 [MiraLAX] 17 gm PO DAILY 06/17/21 05:11 C-REACTIVE PROTEIN [CHEM] AM CBC WITH AUTO DIFF [HEME] AM CMP [COMPREHENSIVE METABOLIC PN,CMP] [CHEM] AM MAGNESIUM [CHEM] AM PHOSPHORUS [CHEM] AM - Plan Plan:: 30-year-old female who aspirated during induction for an elective laparoscopic cholecystectomy. Aspiration pneumonitisimproved * CT demonstrates chronic consolidation within large portion of the left lung. * Currently on nasal cannula at 2.5 L. Continuing to improve improved * Almost normal respiratory rate. * Only complaining of right upper chest pain now * Currently on day 6 of Zosyn for aspiration pneumonia * Lactic acidosis resolved * Covid negative on June 07. Not vaccinated against COVID-19 * Repeat COVID-19 testing on Thursday, June 12 was positive * White count improved to 12.6 * Procalcitonin decreased from 10 to 4.6 yesterday COVID-19 pneumoniaimproved * Currently on remdesivir, dexamethasone * Last day of remdesivir * Refused Actemra or baricitinib. * C-reactive protein decreased from 42.5-->25--> 14.5->5.7. * CT angio was negative for PE Thrombocytosisimproved * Unknown significance or cause. * Could be an acute phase reactant. * Continues to improve * Continue to follow. Hypothyroidism * Home meds levothyroxine 25 mcg daily * TSH -0.529 PCOS * Home meds: Metformin - held Depression * Anxiety and depression are likely contributing to her tachypnea, but improving. * Less Ativan needed. Plan * Medical floor * DC Zosyn and switch to Augmentin * Day 5 of remdesivir * Up to 10 days of dexamethasone * Patient refused Actemra and baricitinib. * Continue oral Ativan and hydroxyzine for anxiety * Oxycodone 5 mg every 2 hours as needed * Follow CBC, CMP, mag, Phos, C-reactive protein, D-dimer * Patient has severe anxiety and panic attacks. * VTE prophylaxis with Lovenox * CODE STATUS: Full code * Possible discharge tomorrow with home oxygen
[2021-06-16] MEDS: LORazepam 1 MG Tab PO PRN (18:20)
[2021-06-17] MEDS: Piperacillin/Tazobactam 4.5 GM in Sodium Chloride 0.9% 100 ML IV SCH ×2 (04:13→13:13)
[2021-06-17] MEDS: Levothyroxine 25 MCG Tab PO SCH ×2 (04:13→06:23)
[2021-06-17] MEDS ORDERED: Ferrous Sulfate 324 MG Tab.EC PO SCH (08:00)
[2021-06-17] MEDS: Dexamethasone 10 MG/ML SDV IVPUSH SCH (08:01)
[2021-06-17] MEDS: Polyethylene Glycol 3350 Powder 17 GM Packet PO SCH (08:02)
[2021-06-17] MEDS: Enoxaparin 40 MG/0.4 ML Syringe SUBCUT SCH (08:02)
[2021-06-17] MEDS: Acetaminophen 325 MG Tab PO PRN ×2 (08:04→13:13)
--- NOTE | 2021-06-17 09:58 | PCM.DCSUM1 ---
Discharge Summary - Hospital Course Free Text/Narrative:: Aspiration pneumonitis/Covid 19 pneumoniaimproved * CT demonstrates chronic consolidation within large portion of the left lung. Lactic acidosis resolved. Improved wbc. * Currently on nasal cannula at 1 L. Continuing to improve improved, Normal RR, Pain anterior chest with cough only. * Home on augmentin * Covid negative on June 07. Not vaccinated against COVID-19, repeat June 12 was positive * dex, cont, Refused Actemra or baricitinib. decreased crp, CT angio was negative for PE * dc home on o2, hydroxyzine for anxiety, oxycodone prn for chest pain, ten tablets prescribe Thrombocytosisimproved * Unknown significance or cause, cont to improve Hypothyroidism * Home meds levothyroxine 25 mcg daily * TSH -0.529 PCOS * Home meds: Metformin - held Depression * Anxiety and depression improved * VTE prophylaxis with Lovenox * CODE STATUS: Full code Brief History: 30-year-old female who aspirated during induction for an elective laparoscopic cholecystectomy. And positive for Covid pneumonia Diagnosis: Stroke: No Modified Misael Scale: No Symptoms at All Modified Misael Scale Score: 0 - Discharge Data Discharge Date: 06/17/21 Discharge Disposition: Home, Self-Care 01 Condition: Good - Referral to Home Health Primary Care Physician: Jared Velazquez PA-C - Discharge Plan Home Medications: Home Meds Omeprazole 20 mg PO BID PRN 12/01/20 [History] Levothyroxine 25 mcg PO ACBREAKFAST 02/18/21 [History] Non-Formulary Medication [NF Drug] 1 tab PO DAILY 02/18/21 [History] metFORMIN HCl [Glucophage XR] 750 mg PO DAILY 02/18/21 [History] Patient Handouts: Aspiration Pneumonia, Adult, Sepsis, Self Care, Adult Referrals: Jared Velazquez PA-C [Primary Care Provider] - Rivera Perea MD [Physician] - - Discharge Summary/Plan Comment DC Time >30 min.: Yes (36min) Total # of Minutes for Discharge Time: 36 - General Info Date of Service: 06/17/21 Admission Dx/Problem (Free Text: Admission Diagnosis/Problem Admission Diagnosis/Problem Aspiration pneumonitis Subjective Update: Feels good enough to go home and follow up with pcp. Continued to cough but improved. Functional Status: Reports: Pain Controlled - Review of Systems General: Reports: Fatigue HEENT: Reports: No Symptoms Pulmonary: Reports: Shortness of Breath, Cough (improved) Cardiovascular: Reports: Chest Pain (with cough only) Gastrointestinal: Reports: No Symptoms Genitourinary: Reports: No Symptoms Musculoskeletal: Reports: No Symptoms Skin: Reports: No Symptoms Neurological: Reports: No Symptoms Psychiatric: Reports: Anxiety - Patient Data Vitals - Most Recent: Last Vital Signs Temp 98.6 F 06/17/21 04:08 Pulse 51 L 06/17/21 04:08 Resp 15 06/17/21 04:08 BP 104/71 06/17/21 04:08 Pulse Ox 92 L 06/17/21 08:54 Weight - Most Recent: 206 lb 6.4 oz I&O - Last 24 hours: Intake & Output 06/16/21 06/17/21 06/17/21 22:59 06:59 14:59 Intake Total 1840 1600 Output Total 1350 Balance 1840 250 Lab Results - Last 24 hrs: Laboratory Results - last 24 hr 06/17/21 06/17/21 Range/Units 06:10 06:10 WBC 12.39 H (3.98-10.04) K/mm3 RBC 4.15 (3.98-5.22) M/mm3 Hgb 9.0 L (11.2-15.7) gm/dl Hct 31.1 L (34.1-44.9) % MCV 74.9 L (79.4-94.8) fl MCH 21.7 L (25.6-32.2) pg MCHC 28.9 L (32.2-35.5) g/dl RDW Std Deviation 49.4 H (36.4-46.3) fL Plt Count 435 H (182-369) K/mm3 MPV 10.2 (9.4-12.3) fl Neut % (Auto) 48.4 (34.0-71.1) % Lymph % (Auto) 38.1 (19.3-51.7) % [place] % (Auto) 8.6 (4.7-12.5) % Eos % (Auto) 2.3 (0.7-5.8) Baso % (Auto) 0.2 (0.1-1.2) % Neut # (Auto) 5.98 (1.56-6.13) K/mm3 Lymph # (Auto) 4.72 H (1.18-3.74) K/mm3 [place] # (Auto) 1.07 H (0.24-0.36) K/mm3 Eos # (Auto) 0.29 (0.04-0.36) K/mm3 Baso # (Auto) 0.03 (0.01-0.08) K/mm3 Manual Slide Review Abnormal smear Sodium 140 (136-145) mEq/L Potassium 3.5 (3.5-5.1) mEq/L Chloride 106 (98-107) mEq/L Carbon Dioxide 26 (21-32) mEq/L Anion Gap 11.5 (5-15) BUN 15 (7-18) mg/dL Creatinine 0.7 (0.55-1.02) mg/dL Est Cr Clr Drug Dosing 100.55 mL/min Estimated GFR (MDRD) > 60 (>60) mL/min BUN/Creatinine Ratio 21.4 H (14-18) Glucose 98 (70-99) mg/dL Calcium 8.2 L (8.5-10.1) mg/dL Phosphorus 4.5 (2.6-4.7) mg/dL Magnesium 1.8 (1.8-2.4) mg/dL Total Bilirubin 0.3 (0.2-1.0) mg/dL AST 12 L (15-37) U/L ALT 51 (14-59) U/L Alkaline Phosphatase 42 L (46-116) U/L C-Reactive Protein 4.0 H* (<1.0) mg/dL Total Protein 6.3 L (6.4-8.2) g/dl Albumin 2.3 L (3.4-5.0) g/dl Globulin 4.0 gm/dL Albumin/Globulin Ratio 0.6 L (1-2) LAURA Results - Last 24 hrs: Microbiology 06/11/21 12:40 Blood Culture - Final Blood - Venous - Lab Draw 06/11/21 12:30 Blood Culture - Final Blood - Venous Med Orders - Current: Current Medications Acetaminophen (Acetaminophen 325 Mg Tab) 650 mg PO Q4H PRN PRN Reason: Fever Greater Than 101 Last Admin: 06/17/21 08:04 Dose: 650 mg Documented by: Albuterol/Ipratropium (Albuterol/Ipratropium 3.0-0.5 Mg/3 Ml Neb Soln) 3 ml NEB Q4HRRT PRN PRN Reason: sob/wheezing Last Admin: 06/15/21 22:00 Dose: 3 ml Documented by: Dexamethasone (Dexamethasone 10 Mg/Ml Sdv) 6 mg IVPUSH DAILY [facility] Stop: 06/21/21 09:01 Last Admin: 06/17/21 08:01 Dose: 6 mg Documented by: Enoxaparin Sodium (Enoxaparin 40 Mg/0.4 Ml Syringe) 40 mg SUBCUT DAILY [facility] Last Admin: 06/17/21 08:02 Dose: 40 mg Documented by: Ferrous Sulfate (Ferrous Sulfate 324 Mg Tab.Ec) 324 mg PO DAILY@0800 [facility] Last Admin: 06/17/21 08:01 Dose: 324 mg Documented by: Guaifenesin/Phenylephrine HCl (Guaifenesin/Dextromethorphan 100-10 Mg/5 Ml Soln 5 Ml Cup) 10 ml PO Q4H PRN PRN Reason: Cough Last Admin: 06/16/21 09:07 Dose: 10 ml Documented by: Hydroxyzine HCl (Hydroxyzine Hcl 50 Mg Tab) 50 mg PO Q4H PRN PRN Reason: Anxiety Last Admin: 06/15/21 05:22 Dose: 50 mg Documented by: Piperacillin Sod/Tazobactam (Sod 4.5 gm/ Sodium Chloride) 100 mls @ 25 mls/hr IV Q8H [facility] Last Admin: 06/17/21 04:13 Dose: 25 mls/hr Documented by: Levothyroxine Sodium (Levothyroxine 25 Mcg Tab) 25 mcg PO ACBREAKFAST [facility] Last Admin: 06/17/21 06:23 Dose: Not Given Documented by: Lorazepam (Lorazepam 1 Mg Tab) 1 mg PO Q4H PRN PRN Reason: Anxiety Last Admin: 06/16/21 18:20 Dose: 1 mg Documented by: Ondansetron HCl (Ondansetron 4 Mg/2 Ml Sdv) 4 mg IVPUSH Q4H PRN PRN Reason: Nausea/Vomiting Last Admin: 06/16/21 09:04 Dose: 4 mg Documented by: Oxycodone HCl (Oxycodone 5 Mg Tab) 5 mg PO Q2H PRN PRN Reason: Pain (moderate 4-6) Last Admin: 06/16/21 22:52 Dose: 5 mg Documented by: Pantoprazole Sodium (Pantoprazole 40 Mg Tab.Cr) 40 mg PO BID PRN PRN Reason: Heartburn Last Admin: 06/15/21 17:22 Dose: 40 mg Documented by: Polyethylene Glycol (Polyethylene Glycol 3350 Powder 17 Gm Packet) 17 gm PO DAILY JOLIE Last Admin: 06/17/21 08:02 Dose: 17 gm Documented by: Discontinued Medications Albuterol (Albuterol 0.083% 2.5 Mg/3 Ml Neb Soln) 2.5 mg NEB ONETIME ONE Stop: 06/11/21 10:31 Last Admin: 06/11/21 09:53 Dose: 2.5 mg Documented by: Albuterol/Ipratropium (Albuterol/Ipratropium 3.0-0.5 Mg/3 Ml Neb Soln) Confirm Administered Dose 3 ml .ROUTE .STK-MED ONE Stop: 06/14/21 12:34 Last Admin: 06/14/21 13:06 Dose: Not Given Documented by: Bupivacaine HCl/Epinephrine Bitart (Bupivacaine 0.5%/Epinephrine 1:200,000 50 Ml Mdv) Confirm Administered Dose 50 ml .ROUTE .STK-MED ONE Stop: 06/11/21 07:31 Cefazolin Sodium (Cefazolin 1 Gm Vial) Confirm Administered Dose 2 gm .ROUTE .STK-MED ONE Stop: 06/11/21 07:07 Dexamethasone (Dexamethasone 4 Mg/Ml 5 Ml Mdv) Confirm Administered Dose 20 mg .ROUTE .STK-MED ONE Stop: 06/11/21 07:07 Diatrizoate Meglum/Diatrizoate Sod (Diatrizoate Meglumine/Diatrizoate Sodium 37% 120 Ml Bottle) 120 ml PO ONETIME ONE Stop: 06/11/21 11:18 Last Admin: 06/12/21 20:06 Dose: Not Given Documented by: Fentanyl (Fentanyl 250 Mcg/5 Ml Sdv) Confirm Administered Dose 250 mcg .ROUTE .STK-MED ONE Stop: 06/11/21 07:07 Ferrous Sulfate (Ferrous Sulfate 324 Mg Tab.Ec) 324 mg PO WITHBREAKFAST [facility] Last Admin: 06/16/21 06:10 Dose: Not Given Documented by: Flumazenil (Flumazenil 0.1 Mg/Ml 5 Ml Mdv) Confirm Administered Dose 0.5 mg .ROUTE .STK-MED ONE Stop: 06/11/21 08:48 Furosemide (Furosemide 20 Mg/2 Ml Vial) Confirm Administered Dose 20 mg .ROUTE .STK-MED ONE Stop: 06/11/21 09:07 Hydromorphone HCl (Hydromorphone 0.5 Mg/0.5 Ml Syringe) 0.5 mg IVPUSH ONETIME ONE Stop: 06/11/21 17:27 Last Admin: 06/11/21 17:47 Dose: 0.5 mg Documented by: Hydromorphone HCl (Hydromorphone 0.5 Mg/0.5 Ml Syringe) 0.5 mg IVPUSH Q2H PRN PRN Reason: Pain (moderate 4-6) Last Admin: 06/13/21 16:56 Dose: 0.5 mg Documented by: Lactated Ringer's (Ringers, Lactated) 1,000 mls @ 125 mls/hr IV ASDIRECTED [facility] Stop: 06/11/21 12:00 Last Admin: 06/11/21 07:14 Dose: 125 mls/hr Documented by: Lactated Ringer's (Ringers, Lactated) Confirm Administered Dose 1,000 mls @ as directed .ROUTE .STK-MED ONE Stop: 06/11/21 07:07 Lactated Ringer's (Ringers, Lactated) 1,000 mls @ 50 mls/hr IV ASDIRECTED [facility] Last Admin: 06/11/21 17:41 Dose: 50 mls/hr Documented by: Piperacillin Sod/Tazobactam (Sod 4.5 gm/ Sodium Chloride) 100 mls @ 200 mls/hr IV ONETIME ONE Stop: 06/11/21 12:59 Last Admin: 06/11/21 12:42 Dose: 200 mls/hr Documented by: Sodium Chloride (Normal Saline) Confirm Administered Dose 500 mls @ as directed .ROUTE .STK-MED ONE Stop: 06/11/21 14:15 Last Admin: 06/11/21 17:42 Dose: 25 mls/hr Documented by: Sodium Chloride (Normal Saline) 100 mls @ 75 mls/hr IV ASDIRECTED [facility] Stop: 06/11/21 23:00 Last Admin: 06/11/21 15:55 Dose: 75 mls/hr Documented by: Lactated Ringer's (Ringers, Lactated) 1,000 mls @ 999 mls/hr IV .BOLUS ONE Stop: 06/11/21 16:30 Last Admin: 06/11/21 15:30 Dose: 999 mls/hr Documented by: Magnesium Sulfate 4 gm/ Premix 50 mls @ 12.5 mls/hr IV ONETIME ONE Stop: 06/12/21 12:59 Last Admin: 06/12/21 09:11 Dose: 12.5 mls/hr Documented by: Dextrose/Sodium Chloride (Dextrose 5%-1/2 Ns) 1,000 mls @ 50 mls/hr IV ASDIRECTED [facility] Last Admin: 06/12/21 11:41 Dose: 50 mls/hr Documented by: Remdesivir 200 mg/ Sodium (Chloride) 250 mls @ 250 mls/hr IV ONETIME ONE Stop: 06/12/21 14:29 Last Admin: 06/12/21 13:27 Dose: 250 mls/hr Documented by: Remdesivir 100 mg/ Sodium (Chloride) 100 mls @ 100 mls/hr IV Q24H [facility] Stop: 06/16/21 14:29 Last Admin: 06/16/21 12:38 Dose: 100 mls/hr Documented by: Iopamidol (Iopamidol 612 Mg/Ml 100 Ml Bottle) 100 ml IVPUSH ONETIME ONE Stop: 06/11/21 11:18 Last Admin: 06/12/21 20:06 Dose: Not Given Documented by: Iopamidol (Iopamidol 755 Mg/Ml 100 Ml Bottle) 100 ml IVPUSH ONETIME ONE Stop: 06/11/21 14:57 Last Admin: 06/11/21 15:55 Dose: 100 ml Documented by: Ketorolac Tromethamine (Ketorolac 30 Mg/Ml Sdv) Confirm Administered Dose 30 mg .ROUTE .STK-MED ONE Stop: 06/11/21 07:07 Lidocaine HCl (Lidocaine 1% 10 Ml Mdv) Confirm Administered Dose 10 ml .ROUTE .STK-MED ONE Stop: 06/11/21 17:25 Last Admin: 06/11/21 18:14 Dose: Not Given Documented by: Lidocaine/Sodium Bicarbonate (Lidocaine 1%/Sod Bicarbonate In Ns 8.4% 1 Ml Syringe) 0.25 ml IDERM ONETIME PRN PRN Reason: Prior to IV Start Stop: 06/11/21 18:00 Last Admin: 06/11/21 07:14 Dose: 0.25 ml Documented by: Lorazepam (Lorazepam 2 Mg/Ml Sdv) 1 mg IVPUSH ONETIME ONE Stop: 06/11/21 17:27 Last Admin: 06/11/21 17:34 Dose: 1 mg Documented by: Lorazepam (Lorazepam 2 Mg/Ml Sdv) 1 mg IVPUSH Q2H PRN PRN Reason: Anxiety Last Admin: 06/14/21 12:49 Dose: 1 mg Documented by: Magnesium Hydroxide (Magnesium Hydroxide 400 Mg/5 Ml Susp 30 Ml Cup) 30 ml PO ONETIME ONE Stop: 06/15/21 14:01 Last Admin: 06/15/21 13:01 Dose: Not Given Documented by: Magnesium Hydroxide (Magnesium Hydroxide 400 Mg/5 Ml Susp 30 Ml Cup) 30 ml PO ONETIME ONE Stop: 06/15/21 16:56 Last Admin: 06/15/21 17:26 Dose: 30 ml Documented by: Magnesium Oxide (Magnesium Oxide 400 Mg Tab) 400 mg PO BID JOLIE Stop: 06/13/21 21:01 Last Admin: 06/13/21 19:59 Dose: 400 mg Documented by: Midazolam HCl (Midazolam 1 Mg/Ml 2 Ml Sdv) Confirm Administered Dose 2 mg .ROUTE .STK-MED ONE Stop: 06/11/21 07:07 Midazolam HCl (Midazolam 1 Mg/Ml 2 Ml Sdv) 0.5 mg IVPUSH ONETIME PRN PRN Reason: Anxiety Stop: 06/11/21 13:00 Last Admin: 06/11/21 11:18 Dose: 0.5 mg Documented by: Midazolam HCl (Midazolam 1 Mg/Ml 2 Ml Sdv) 0.5 mg IVPUSH ONETIME PRN PRN Reason: Anxiety Stop: 06/11/21 23:00 Last Admin: 06/11/21 12:01 Dose: 0.5 mg Documented by: Naloxone HCl (Naloxone 0.4 Mg/Ml Sdv) Confirm Administered Dose 0.4 mg .ROUTE .STK-MED ONE Stop: 06/11/21 08:48 Ondansetron HCl (Ondansetron 4 Mg/2 Ml Sdv) Confirm Administered Dose 4 mg .ROUTE .STK-MED ONE Stop: 06/11/21 07:07 Ondansetron HCl (Ondansetron 4 Mg/2 Ml Sdv) 4 mg IVPUSH ONETIME PRN PRN Reason: Nausea/Vomiting Stop: 06/11/21 23:00 Last Admin: 06/11/21 11:24 Dose: 4 mg Documented by: Potassium Chloride (Potassium Chloride 10 Meq Tab.Er) 40 meq PO ONETIME ONE Stop: 06/15/21 10:00 Last Admin: 06/15/21 10:20 Dose: 40 meq Documented by: Potassium Chloride (Potassium Chloride 20 Meq Tab.Er) 40 meq PO ONETIME ONE Stop: 06/16/21 08:10 Last Admin: 06/16/21 08:52 Dose: 40 meq Documented by: Propofol (Propofol 200 Mg/20 Ml Sdv) Confirm Administered Dose 200 mg .ROUTE .STK-MED ONE Stop: 06/11/21 07:07 Rocuronium [place] (Rocuronium 50 Mg/5 Ml Vial) Confirm Administered Dose 50 mg .ROUTE .STK-MED ONE Stop: 06/11/21 07:07 Sodium Chloride (Sodium Chloride 0.9% 10 Ml Syringe) 10 ml FLUSH ASDIRECTED PRN PRN Reason: Keep Vein Open Stop: 06/11/21 18:00 Sodium Chloride (Sodium Chloride 0.9% 10 Ml Syringe) 10 ml FLUSH ONETIME PRN PRN Reason: IV FLUSH Stop: 06/11/21 13:00 Sodium Chloride (Sodium Chloride 0.9% 10 Ml Syringe) 10 ml FLUSH ONETIME PRN PRN Reason: IV FLUSH Stop: 06/11/21 23:00 - Exam Quality Assessment: Reports: Supplemental Oxygen General: Reports: Alert, Oriented, Cooperative, No Acute Distress HEENT: Reports: Pupils Equal, Pupils Reactive Neck: Reports: Supple Lungs: Reports: Decreased Breath Sounds, Crackles (bilateral lower lobes and soft and seem to clear somewhat with cough) Cardiovascular: Reports: Regular Rate, Regular Rhythm GI/Abdominal Exam: Normal Bowel Sounds (Female) Exam: Normal External Exam Rectal (Female) Exam: Normal Exam Back Exam: Reports: Normal Inspection Extremities: Normal Inspection Skin: Reports: Warm Wound/Incisions: Reports: Healing Well Neurological: Reports: No New Focal Deficit Psy/Mental Status: Reports: Alert (does not appear anxious)
[2021-06-17 10:05] VITALS: BP 110/48; PULSE 49
[2021-06-17] MEDS: guaiFENesin/Dextromethorphan 100-10 MG/5 ML Soln 5 ML Cup PO PRN (11:14)
[2021-06-17] MEDS: Pantoprazole 40 MG Tab.CR PO PRN (15:27)
== END 2021-06-17 14:18 | disposition home or self-care (01) | DRG 177 ==
LOC: JD.SDS 06:42 → JD.ICU 09:55 → OBSVTOIN 19:58 → JD.ICU 19:58 → JD.MS 06-14 18:26
PROVIDERS: ADMIT Surgery; ATTEND Surgery
PROC: 8E0ZXY6 Isolation (ICD-10-PCS; principal; 2021-06-11)
PROC: XW033E5 Introduction of Remdesivir Anti-infective into Peripheral Vein, Percutaneous Approach, New Technology Group 5 (ICD-10-PCS; 2021-06-11)
PROC: 3E0333Z Introduction of Anti-inflammatory into Peripheral Vein, Percutaneous Approach (ICD-10-PCS; 2021-06-11)
DX: U07.1 COVID-19 (principal); J12.82 Pneumonia due to coronavirus disease 2019; J69.0 Pneumonitis due to inhalation of food and vomit; E87.2 Acidosis; E03.9 Hypothyroidism, unspecified; D75.839 Thrombocytosis, unspecified; J45.909 Unspecified asthma, uncomplicated; E11.9 Type 2 diabetes mellitus without complications; F32.9 Major depressive disorder, single episode, unspecified; F41.9 Anxiety disorder, unspecified; K21.9 Gastro-esophageal reflux disease without esophagitis; Z90.49 Acquired absence of other specified parts of digestive tract; Z87.19 Personal history of other diseases of the digestive system; Z98.890 Other specified postprocedural states; Z79.4 Long term (current) use of insulin
CPT/HCPCS: 36415; 71045; 71045-26; 71275; 71275-26; 74177; 74177-26; 80053; 81001; 81025; 82248; 82728; 82947; 83540; 83605; 83735; 84100; 84145; 84443; 84466; 85025; 86140; 87040; 94640; 94660; 94668; 94762; A9270-GY; J0690; J1100; J1170; J1650; J1885; J1940; J2060; J2250; J2310; J2405; J2543; J2704; J3010; J3475; J3490; J7040; J7042; J7050; J7120; J7620-GY; Q9963; Q9967; U0002

== ENCOUNTER 2021-08-16 05:53 | Emergency (ER) | payer OTHER, SELFPAY ==
[2021-08-16 06:23] VITALS: BP 124/67; PULSE 87
[2021-08-16] MEDS ORDERED: Morphine 4 MG/ML Syringe IVPUSH ONE (06:29)
[2021-08-16] MEDS ORDERED: Ondansetron 4 MG/2 ML SDV IVPUSH ONE (06:29)
--- NOTE | 2021-08-16 06:31 | EDM.PDOC ---
<Calvin Prabhakar - Last Filed: 08/16/21 06:29> ED HPI GENERAL MEDICAL PROBLEM - General Chief Complaint: Abdominal Pain Stated Complaint: GALL BLADDER ISSUES Time Seen by Provider: 08/16/21 06:15 Source of Information: Reports: Patient History Limitations: Reports: No Limitations - History of Present Illness INITIAL COMMENTS - FREE TEXT/NARRATIVE: Patient is 30-year-old female complaining of abdominal pain. Patient has known gallstones and was scheduled have her gallbladder taken out in May but had an aspiration event leading to her getting pneumonia. She states last night she had pizza and around 1130 she started to have abdominal pain. Pain is very similar to her previous gallbladder attacks. States pain is primarily epigastric and right upper quadrant. Radiates to the right shoulder. Reports several episodes of vomiting. Denies any fevers. Patient reports pain has somewhat improved with administration of ibuprofen prior to arrival. Otherwise, denies diarrhea or constipation. She states she is scheduled to have her gallbladder removed in September. Is requesting pain medication as primary reason for arriving. Middle Abdomen Pain Score (Numeric/FACES): 6 - Related Data Allergies Allergy/AdvReac Type Severity Reaction Status Date / Time Anesthetics - Amide Type - Allergy Other Verified 08/16/21 06:24 [facility] Med[facility]: Home Meds Omeprazole 20 mg PO BID PRN 12/01/20 [History] Levothyroxine 25 mcg PO ACBREAKFAST 02/18/21 [History] Non-Formulary Medication [NF Drug] 1 tab PO DAILY 02/18/21 [History] metFORMIN HCl [Glucophage XR] 750 mg PO DAILY 02/18/21 [History] Amoxicillin/Potassium Clav [Augmentin 500-125 Tablet] 1 each PO Q12HR #10 tablet 06/17/21 [Rx] Ferrous Sulfate 324 mg PO DAILY@0800 #30 tab.ec 06/17/21 [Rx] oxyCODONE 5 mg PO Q8HR PRN #10 tablet 06/17/21 [Rx] Hydrocodone/Acetaminophen [HYDROcodone-Acetaminophen 5-325 MG] 1 - 2 each PO Q6H PRN #14 tab 08/16/21 [Rx] Past Medical History - Past Health History Medical/Surgical History: Denies Medical/Surgical History HEENT History: Reports: Otitis Media, Sinusitis Other HEENT History: Patient has partials. Respiratory History: Reports: Asthma, Pneumonia, Recurrent Gastrointestinal History: Reports: Cholelithiasis, GERD, Other (See Below) Other Gastrointestinal History: Rectal bleeding, Rectal Fissure Genitourinary History: Reports: Other (See Below) Other Genitourinary History: Dysuria NURSE LDR History: Reports: Polycystic Ovaries, Other NURSE LDR History: Csection 2014 Neurological History: Reports: Migraines Psychiatric History: Reports: Depression Endocrine/Metabolic History: Reports: Diabetes, Type II, Hypothyroidism, Obesity/BMI 30+, Vitamin D Deficiency Hematologic History: Reports: Anemia, Iron Deficiency - Infectious Disease History Infectious Disease History: Reports: Novel Coronavirus - Past Surgical History HEENT Surgical History: Reports: Oral Surgery Other HEENT Surgeries/Procedures: teeth extraction 2001 Cardiovascular Surgical History: Reports: None Female Surgical History: Reports: Section Endocrine Surgical History: Reports: None Musculoskeletal Surgical History: Reports: None Social & Family History - Family History Family Medical History: No Pertinent Family History - Tobacco Use Tobacco Use Status *Q: Never Tobacco User - Caffeine Use Caffeine Use: Reports: None - Recreational Drug Use Recreational Drug Use: No ED ROS GENERAL - Review of Systems Review Of Systems: See Below Free Text/Narrative/Comment: In addition to that documented in the HPI above, the additional ROS was obtained: Constitutional: Denies fevers or chills Eyes: Denies vision changes ENMT: Denies sore throat CV: Denies chest pain Resp: Denies SOB GI: Per HPI : Denies painful urination MSK: Denies recent trauma Skin: Denies new rashes Neuro: Denies new numbness or tingling or weakness Endocrine: Denies unexpected weight loss Heme: Denies bleeding disorders ED EXAM, GI/ABD - Physical Exam Exam: See Below Text/Narrative:: I have reviewed the triage vital signs Const: Well nourished, well developed, appears stated age Eyes: Pupils Equal and reactive to light bilaterally, no conjunctival injection HENT: No signs of trauma or swelling, Neck supple without meningismus CV: Regular Rate Rhythm, Warm, well-perfused extremities RESP: Unlabored respiratory effort GI: soft, non-tender, non-distended, no masses MSK: No gross deformities appreciated Skin: Warm, dry. 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 Sensation and motor function of extremities grossly intact. Psych: Appropriate mood and affect. Departure - Departure Disposition: Home, Self-Care 01 Clinical Impression: Cholelithiasis, Liver nodule - Discharge Information Referrals: Jared Velazquez PA-C [Primary Care Provider] - Rivera Perea MD [Physician] - Forms: ED Department Discharge Additional Instructions: Return to the emergency room with any questions problems or worsening symptoms. Follow-up with Dr. Perea the middle of this next week call today for an appointment. I sent a prescription to [facility] up by [place] for hydrocodone take 1 or 2 every 6 hours as needed for pain. Allow 12 hours after using this medication before driving or returning to work as it can cause sedation. Avoid pizza or other fatty meals as this can aggravate your gallbladder. Sepsis Event Note (ED) - Evaluation Sepsis Screening Result: No Definite Risk <Nawaf Downey - Last Filed: 08/16/21 10:08> Course - Vital Signs Last Recorded V/S: Last Vital Signs Temp 35.9 C L 08/16/21 06:15 Pulse 87 08/16/21 06:15 Resp 20 08/16/21 06:15 BP 124/67 08/16/21 06:15 Pulse Ox 97 08/16/21 06:15 - Orders/Labs/Meds Labs: Laboratory Tests 08/16/21 08/16/21 08/16/21 Range/Units 06:45 06:45 06:47 WBC 8.95 (3.98-10.04) K/mm3 RBC 5.07 (3.98-5.22) M/mm3 Hgb 12.1 D (11.2-15.7) gm/dl Hct 39.6 (34.1-44.9) % MCV 78.1 L D (79.4-94.8) fl MCH 23.9 L (25.6-32.2) pg MCHC 30.6 L (32.2-35.5) g/dl RDW Std Deviation 53.9 H (36.4-46.3) fL Plt Count 558 H D (182-369) K/mm3 MPV 9.9 (9.4-12.3) fl Neut % (Auto) 74.4 H (34.0-71.1) % Lymph % (Auto) 17.8 L (19.3-51.7) % [place] % (Auto) 6.5 (4.7-12.5) % Eos % (Auto) 1.0 (0.7-5.8) Baso % (Auto) 0.2 (0.1-1.2) % Neut # (Auto) 6.66 H (1.56-6.13) K/mm3 Lymph # (Auto) 1.59 (1.18-3.74) K/mm3 [place] # (Auto) 0.58 H (0.24-0.36) K/mm3 Eos # (Auto) 0.09 (0.04-0.36) K/mm3 Baso # (Auto) 0.02 (0.01-0.08) K/mm3 Sodium 145 (136-145) mEq/L Potassium 4.1 (3.5-5.1) mEq/L Chloride 109 H (98-107) mEq/L Carbon Dioxide 27 (21-32) mEq/L Anion Gap 13.1 (5-15) BUN 11 (7-18) mg/dL Creatinine 0.8 (0.55-1.02) mg/dL Est Cr Clr Drug Dosing TNP Estimated GFR (MDRD) > 60 (>60) mL/min BUN/Creatinine Ratio 13.8 L (14-18) Glucose 122 H (70-99) mg/dL Calcium 8.7 (8.5-10.1) mg/dL Total Bilirubin 0.6 (0.2-1.0) mg/dL AST 173 H (15-37) U/L ALT 135 H (14-59) U/L Alkaline Phosphatase 160 H (46-116) U/L Total Protein 7.0 (6.4-8.2) g/dl Albumin 2.8 L (3.4-5.0) g/dl Globulin 4.2 gm/dL Albumin/Globulin Ratio 0.7 L (1-2) Lipase 175 (73-393) U/L Urine HCG, Qual Negative (NEGATIVE) Meds: Medications Discontinued Medications Generic Name Dose Route Start Last Admin Trade Name Freq PRN Reason Stop Dose Admin Diphenhydramine HCl 25 mg 08/16/21 06:54 08/16/21 07:26 Diphenhydramine 50 Mg/Ml Sdv IVPUSH 08/16/21 06:55 Not Given ONETIME ONE Morphine Sulfate 4 mg 08/16/21 06:29 08/16/21 06:49 Morphine 4 Mg/Ml Syringe IVPUSH 08/16/21 06:30 4 mg ONETIME ONE Administration Ondansetron HCl 4 mg 08/16/21 06:29 08/16/21 06:48 Ondansetron 4 Mg/2 Ml Sdv IVPUSH 08/16/21 06:30 4 mg ONETIME ONE Administration - Re-Assessments/Exams Free Text/Narrative Re-Assessment/Exam: 08/16/21 08:18 Assumed care at change of shift waited for labs to come. White count looks good. Liver enzymes elevated bilirubin is normal. Case discussed with Dr. Perea we will check an ultrasound with for signs of inflammation if this is not present he advises to discharge home if tolerating oral pain medication and follow-up next week if there is signs of inflammation or other concerning issues on the ultrasound reconsider surgical options. The initial plan was to try and wait until close to September before taking the gallbladder out after she aspirated in the OR at the beginning of the last attempt. 08/16/21 09:52 Gallbladder ultrasound does not show any growth bladder wall thickening or biliary duct dilation or evidence of obstruction. There is a slightly enlarging hypoechoic nodule in the left lobe of the liver with comparison to a CT this is slightly larger on CT done early May is 1.6 cm now it is up to 1.8 cm. I have reviewed this with Dr. Perea who will follow up with the patient this next week we will discharge her with some pain medication and advised her to stay away from [facility]. She states she had [employer]yte[employer] last night for supper. Departure - Departure Time of Disposition: 09:53 Sepsis Event Note (ED) - Focused Exam Vital Signs: Vital Signs Temp Pulse Resp BP Pulse Ox 08/16/21 06:15 35.9 C L 87 20 124/67 97
[2021-08-16] MEDS ORDERED: diphenhydrAMINE 50 MG/ML SDV IVPUSH ONE (06:54)
--- NOTE | 2021-08-16 09:35 | US ---
Limited abdominal ultrasound: Multiple real-time images of the upper right abdomen were obtained. Comparison: CT abdomen and pelvis study of 06/11/21, prior limited abdominal ultrasound of 05/15/21. Findings: Liver shows a hypoechoic lesion within the left lobe which measures 1.5 x 1.3 x 1.8 cm. This has increased in size and measured 1.6 cm on prior exam. This is not appreciated on the prior CT study but is still felt to be a real nodule. Pancreas is mostly obscured with visualized portions appearing within normal limits. Gallbladder shows several gallstones. No gallbladder wall thickening or biliary duct dilatation seen. Right kidney shows no hydronephrosis or mass. Inferior vena cava is patent. Main portal vein shows normal hepatopedal flow. Impression: 1. Slightly enlarging hypoechoic nodule within the left lobe of the liver. This is nonspecific regarding etiology. Please consider ultrasound-guided biopsy to further evaluate. 2. Gallstones within the gallbladder with no gallbladder wall thickening or biliary duct dilatation. 3. No additional abnormality is appreciated on abdominal ultrasound study. Diagnostic code #9
== END 2021-08-16 10:28 | disposition home or self-care (01) ==
LOC: JD.ED 05:53
DX: K80.20 Calculus of gallbladder without cholecystitis without obstruction (principal); K76.89 Other specified diseases of liver; E11.9 Type 2 diabetes mellitus without complications; E03.9 Hypothyroidism, unspecified; K21.9 Gastro-esophageal reflux disease without esophagitis; E66.9 Obesity, unspecified; Z68.30 Body mass index [BMI] 30.0-30.9, adult; Z88.4 Allergy status to anesthetic agent; Z79.899 Other long term (current) drug therapy; Z86.16 Personal history of COVID-19
CPT/HCPCS: 36415; 76705; 80053; 81025; 83690; 85025; 96374; 96375; 99284; J2270; J2405

== ENCOUNTER 2021-12-07 04:20 | Emergency (ER) | payer SELFPAY ==
[2021-12-07 05:03] VITALS: BP 124/75
[2021-12-07] MEDS ORDERED: Alum Hydrox/Mag Hydrox/Simeth 30 ML, Lidocaine 2% 15 ML PO STA ×2 (05:24)
[2021-12-07 05:38] VITALS: PULSE 89
== END 2021-12-07 06:10 | disposition home or self-care (01) ==
LOC: JD.ED 04:20
DX: K21.9 Gastro-esophageal reflux disease without esophagitis (principal); E03.9 Hypothyroidism, unspecified; E66.9 Obesity, unspecified; Z68.35 Body mass index [BMI] 35.0-35.9, adult; Z88.4 Allergy status to anesthetic agent; Z79.899 Other long term (current) drug therapy; Z86.16 Personal history of COVID-19
CPT/HCPCS: 99284; A9270; 99283